=== PATIENT | male | born 1935 | race Caucasian/White ===

== ENCOUNTER 2017-01-29 09:36 | Outpatient (CLI) | payer MEDICARE, BC ==
[2017-01-29 10:14] LABS: #Basophils 0.1 thou/uL (0.0-0.2); #Eosinphils 0.3 thou/uL (0.0-0.7); #Lymphocytes 1.6 thou/uL (1.20-3.40); #Monocytes 0.8 thou/uL (0.11-0.59); #Neutrophils 5.4 thou/uL (1.40-6.50); %Basophils 1.2 % (0.0-1.0); %Eosinophils 3.9 % (0.0-10.0); %Lymphocytes 19.7 % (21.0-51.0); %Monocytes 9.2 % (0.0-10.0); Hemoglobin 17.5 g/dL (14.0-18.0); Mean Corpuscular HGB CONC 33.9 g/dL (32.0-36.0); Mean Corpuscular Hemoglobin 33.2 pg (27.0-31.0); Mean Corpuscular Volume 97.9 fl (80.0-94.0); Mean Platelet Volume 7.8 fL (7.4-10.4); Platelet Count 158 thou/uL (130-400); RBC Distribution Width 12.3 % (11.5-14.5); Red Blood Cell (RBC) Count 5.28 mill/uL (4.70-6.10); White Blood Cell (WBC) Count 8.2 thou/uL (4.8-10.8)
[2017-01-29 10:26] LABS: Hemoglobin A1c 8.3 % (4.0-6.0)
[2017-01-29 10:28] LABS: ALT (SGPT) 18 U/L (8-55); AST (SGOT) 17 U/L (5-34); Albumin 3.8 g/dL (3.4-4.8); Alkaline Phosphatase 62 U/L (40-150); Anion Gap 13 mmol/L (10-20); BUN (Urea Nitrogen) 18 mg/dL (8.4-25.7); Bilirubin, Direct 0.3 mg/dL (0.1-0.3); Bilirubin, Total 0.8 mg/dL (0.2-1.2); Calc. Creatinine Clearance 0 mL/min (70-130); Calcium 9.4 mg/dL (7.8-10.44); Carbon Dioxide 28 mmol/L (23-31); Cardiac Risk 4.5 (Less than 4.5); Chloride 104 mmol/L (98-107); Cholesterol 166 mg/dl (< 200 Desired); Estimated GFR-MDRD 67; Glucose 184 mg/dL (83-110); HDL Cholesterol 37 mg/dL (>60 Neg Risk); LDL Cholesterol, Calculated 114 mg/dL; Potassium 5.2 mmol/L (3.5-5.1); Protein, Total 6.8 g/dL (5.8-8.1); Sodium 140 mmol/L (136-145); Triglycerides 75 mg/dL (Less than 150)
== END 2017-01-29 09:37 | disposition home or self-care (01) ==
LOC: MADLABBHPM 09:36
PROVIDERS: ATTEND Family Medicine
DX: E78.5 Hyperlipidemia, unspecified (principal); I25.5 Ischemic cardiomyopathy; E11.9 Type 2 diabetes mellitus without complications
CPT/HCPCS: 36415; 80048; 80061; 80076; 80162; 83036; 85025

== ENCOUNTER 2017-05-03 09:55 | Outpatient (CLI) | payer MEDICARE, BC ==
[2017-05-03 10:31] LABS: #Basophils 0.1 thou/uL (0.0-0.2); #Eosinphils 0.3 thou/uL (0.0-0.7); #Lymphocytes 1.5 thou/uL (1.20-3.40); #Monocytes 0.7 thou/uL (0.11-0.59); #Neutrophils 5.7 thou/uL (1.40-6.50); %Basophils 1.2 % (0.0-1.0); %Eosinophils 3.5 % (0.0-10.0); %Lymphocytes 17.6 % (21.0-51.0); %Monocytes 8.8 % (0.0-10.0); %Neutrophils 68.8 % (42.0-75.0); Hemoglobin 16.3 g/dL (14.0-18.0); Mean Corpuscular Hemoglobin 31.2 pg (27.0-31.0); Mean Corpuscular Volume 97.6 fl (80.0-94.0); Mean Platelet Volume 7.4 fL (7.4-10.4); Platelet Count 166 thou/uL (130-400); Red Blood Cell (RBC) Count 5.24 mill/uL (4.70-6.10); White Blood Cell (WBC) Count 8.2 thou/uL (4.8-10.8)
[2017-05-03 10:52] LABS: ALT (SGPT) 15 U/L (8-55); AST (SGOT) 13 U/L (5-34); Albumin 3.7 g/dL (3.4-4.8); Alkaline Phosphatase 56 U/L (40-150); Anion Gap 13 mmol/L (10-20); BUN (Urea Nitrogen) 20 mg/dL (8.4-25.7); Bilirubin, Direct 0.2 mg/dL (0.1-0.3); Bilirubin, Total 0.6 mg/dL (0.2-1.2); Calc. Creatinine Clearance 0 mL/min (70-130); Calcium 9.5 mg/dL (7.8-10.44); Carbon Dioxide 28 mmol/L (23-31); Cardiac Risk 5.4 (Less than 4.5); Chloride 103 mmol/L (98-107); Cholesterol 183 mg/dl (< 200 Desired); Estimated GFR-MDRD 62; Glucose 235 mg/dL (83-110); HDL Cholesterol 34 mg/dL (>60 Neg Risk); LDL Cholesterol, Calculated 132 mg/dL; Potassium 4.7 mmol/L (3.5-5.1); Protein, Total 6.8 g/dL (5.8-8.1); Sodium 139 mmol/L (136-145); Triglycerides 87 mg/dL (Less than 150)
[2017-05-03 11:12] LABS: Hemoglobin A1c 8.5 % (4.0-6.0)
== END 2017-05-03 09:56 | disposition home or self-care (01) ==
LOC: MADLABBHPM 09:55
PROVIDERS: ATTEND Family Medicine
DX: E11.9 Type 2 diabetes mellitus without complications (principal)
CPT/HCPCS: 36415; 80048; 80061; 80076; 83036; 85025

== ENCOUNTER 2017-09-18 15:17 | Emergency (ER) | payer MEDICARE, BC | END 2017-09-18 17:07 | disposition home or self-care (01) | LOC: MADERS 15:17 | DX: M79.662 Pain in left lower leg (principal); E11.9 Type 2 diabetes mellitus without complications; Z79.4 Long term (current) use of insulin | CPT/HCPCS: 99283 ==

== ENCOUNTER 2018-09-23 23:02 | Emergency (ER) | payer MEDICARE, BC ==
[2018-09-23] MEDS ORDERED: Acetaminophen 500 MG TAB ONE (23:15)
[2018-09-23 23:30] LABS: #Basophils 0.1 thou/uL (0.0-0.2); #Lymphocytes 1.2 thou/uL (1.20-3.40); #Monocytes 1.1 thou/uL (0.11-0.59); #Neutrophils 11.8 thou/uL (1.40-6.50); %Basophils 0.7 % (0.0-1.0); %Eosinophils 0.2 % (0.0-10.0); %Lymphocytes 8.6 % (21.0-51.0); %Monocytes 7.5 % (0.0-10.0); Hemoglobin 16.6 g/dL (14.0-18.0); Mean Corpuscular Hemoglobin 30.1 pg (27.0-31.0); Mean Corpuscular Volume 94.2 fL (78.0-98.0); Mean Platelet Volume 7.5 fL (7.4-10.4); Platelet Count 204 thou/uL (130-400); RBC Distribution Width 12.2 % (11.5-14.5); White Blood Cell (WBC) Count 14.2 thou/uL (4.8-10.8)
--- NOTE | 2018-09-23 23:32 | RAD ---
UPRIGHT PORTABLE CHEST ONE VIEW: 09/23/18 HISTORY: Dyspnea. COMPARISON: 02/20/14. FINDINGS: Cardiomegaly with postop midline sternotomy and left ICD. Minimal cardiomegaly. Minimal bilateral vas cular congestion with small pleural effusions, slightly larger on the right side. No confluent lobar pneumonia. IMPRESSION: Mild vascular congestion with cardiomegaly and small pleural effusions. No confluent pneumonia. Littl e change from prior old study. POS: JEFFRY
[2018-09-23 23:37] LABS: ALT (SGPT) 37 U/L (8-55); AST (SGOT) 43 U/L (5-34); Albumin 3.8 g/dL (3.4-4.8); Alkaline Phosphatase 88 U/L (40-150); Anion Gap 17 mmol/L (10-20); BUN (Urea Nitrogen) 21 mg/dL (8.4-25.7); Bilirubin, Total 1.2 mg/dL (0.2-1.2); Calc. Creatinine Clearance 0 mL/min (70-130); Calcium 9.3 mg/dL (7.8-10.44); Carbon Dioxide 22 mmol/L (23-31); Chloride 102 mmol/L (98-107); Estimated GFR-MDRD 58; Globulin 3.6 g/dL (2.4-3.5); Glucose 301 mg/dL (83-110); Potassium 5.3 mmol/L (3.5-5.1); Protein, Total 7.4 g/dL (5.8-8.1); Sodium 136 mmol/L (136-145)
[2018-09-23] MEDS ORDERED: Furosemide 40 MG/4 ML VIAL ONE (23:51)
[2018-09-24 00:04] LABS: CKMB 3.3 ng/mL (0-6.6)
== END 2018-09-24 01:45 | disposition short-term general hospital (02) ==
LOC: MADERS 23:02
DX: I50.9 Heart failure, unspecified (principal); I25.10 Atherosclerotic heart disease of native coronary artery without angina pectoris; E11.9 Type 2 diabetes mellitus without complications; Z79.4 Long term (current) use of insulin
CPT/HCPCS: 71045; 80053; 82553; 83605; 83880; 84484; 85025; 87040; 87804; 93005; 94760; 96374; J1940; J7620

== ENCOUNTER 2019-03-08 09:14 | Inpatient (IN) | payer MEDICARE, BC ==
[2019-03-08 16:14] VITALS: BMI 26.3
[2019-03-08] MEDS ORDERED: Acetaminophen 325 MG TAB PO PRN (18:08)
[2019-03-08] MEDS ORDERED: traMADol HCl 50 MG TAB PO PRN (18:11)
[2019-03-08] MEDS ORDERED: HumuLIN 70/30 (300 UNITS/3 ML VIAL) SC SCH (21:00)
[2019-03-08] MEDS: Carvedilol 12.5 MG TAB PO SCH (21:19)
[2019-03-08] MEDS: Atorvastatin Calcium 10 MG TAB PO SCH (21:19)
[2019-03-08] MEDS: Tamsulosin HCl 0.4 MG CAP PO SCH (21:20)
[2019-03-08] MEDS: Sacubitril 49 MG/Valsartan 51 MG TABLET PO SCH (21:20)
[2019-03-09] MEDS: Levothyroxine Sodium 25 MCG TAB PO SCH (04:52)
[2019-03-09 05:24] LABS: ALT (SGPT) 20 U/L (8-55); AST (SGOT) 15 U/L (5-34); Albumin 3.1 g/dL (3.4-4.8); Alkaline Phosphatase 75 U/L (40-150); Anion Gap 10 mmol/L (10-20); BUN (Urea Nitrogen) 29 mg/dL (8.4-25.7); Bilirubin, Total 0.5 mg/dL (0.2-1.2); Calc. Creatinine Clearance 47 mL/min (70-130); Calcium 9.2 mg/dL (7.8-10.44); Carbon Dioxide 30 mmol/L (23-31); Chloride 103 mmol/L (98-107); Estimated GFR-MDRD 59; Glucose 359 mg/dL (83-110); Potassium 3.9 mmol/L (3.5-5.1); Protein, Total 6.1 g/dL (5.8-8.1); Sodium 139 mmol/L (136-145)
[2019-03-09 05:26] LABS: Band 1 % (5-11); Eosinophils 6 % (0-10); Hemoglobin 14.5 g/dL (14.0-18.0); Lymphocytes 14 % (21-51); MDiff Complete? YES; Mean Corpuscular HGB CONC 32.5 g/dL (32.0-36.0); Mean Corpuscular Hemoglobin 29.4 pg (27.0-31.0); Mean Corpuscular Volume 90.7 fL (78.0-98.0); Mean Platelet Volume 6.7 fL (7.4-10.4); Monocytes 9 % (0-10); Neutrophil 57 % (42-75); Platelet Count 213 thou/uL (130-400); Platelet Morphology Comment Appears Adequate; RBC Distribution Width 12.2 % (11.5-14.5); RBC Morphology Normal; Reactive Lymphocytes 13 % (0-10); Red Blood Cell (RBC) Count 4.93 mill/uL (4.70-6.10); White Blood Cell (WBC) Count 10.6 thou/uL (4.8-10.8)
[2019-03-09] MEDS: HumuLIN 70/30 (300 UNITS/3 ML VIAL) SC SCH ×2 (07:54→17:21)
--- NOTE | 2019-03-09 08:16 | HP ---
CHIEF COMPLAINT: Weakness and deconditioning. HISTORY OF PRESENT ILLNESS: The patient is an 83-year-old white male, who has a history of coronary artery disease, for which he has undergone a coronary artery bypass, complicated by chronic ischemic cardiomyopathy, for which he has had AICD placed. He had a distant history of a stroke, treated with tPA in 2012 with no residual. He has type 2 diabetes that is managed with insulin. He has hypothyroidism. The patient had undergone a cystoscopy with bladder biopsy and fulguration of the lesion and retrograde pyelogram on 03/02/2019 by urologist, Dr. Roque Lewis and was discharged on 03/03/2019. The patient re-presented to the hospital and admitted at [facility] for onset of difficulty with his speech. He said he was trying to talk, but just could not get the words to come out. This all resolved and was felt to be secondary to a TIA. He underwent a CT angio of the brain and neck that showed critical bilateral proximal internal carotid artery stenosis. The CT showed no evidence of intracranial hemorrhage. His symptoms resolved and he also had a fao-PO-ntumhbh elevated myocardial infarction with the peak troponin of 11. After the initial stroke symptoms resolved, his director of dementia operations, Dr. Abdi did a heart cath and found 3-vessel coronary artery disease. The three previous bypass grafts were all blocked and there was severely impaired ventricular function. He was able to successfully do a bare-metal stent in the mid LAD. His echocardiogram showed ejection fraction of 30% to 35% with moderate to severe tricuspid regurgitation and moderate mitral regurgitation. He had dyskinetic motion of the apical wall and akinetic motion of the inferior wall of the left ventricle. He was seen in consultation by cardiovascular surgeon, Dr. Lloyd, who felt like that it was best at this time for medical management of the critical aortic stenosis. He was treated with high dose of statin drugs, aspirin, and Plavix. He did very well and his mild exacerbation of congestive heart failure resolved. He was left though very very weak and as a consequence, he was referred to [facility] for physical therapy. The patient was seen soon after his admission. He was sitting up in a bedside chair and was able to review with me what had happened. He said right now he is feeling better, but he is just weak and hopes he gets strong enough to be able to go home. PAST MEDICAL HISTORY: Hospitalized at [facility] from 03/04 to 03/08 with initial TIA, presenting with aphasia. He had a non ST-segment elevated myocardial infarction. Heart cath showed triple-vessel coronary artery disease with the previous three bypass grafts that are blocked with severely impaired ventricular function. A bare-metal stent was placed in the LAD. He was found to have critical stenosis of the left and right carotid arteries, but at this time, he was not felt to be a good candidate for surgical intervention nor stents. It was opted to manage him with medications. Cystoscopy and biopsy of bladder tumor on 03/02/2019, by Dr. Roque Lewis. Ischemic cardiomyopathy, hypertension, coronary artery disease. History of coronary artery bypass x3 in 2002, complicated by ischemic cardiomyopathy, for which he has a biventricular automatic defibrillator that was placed in 2008 and replaced in September of 2014. He has peripheral artery disease, for which he has had stent placed in the left superficial femoral artery by Dr. Solomon in 2015. He has been treated in the past for congestive heart failure. He had CVA in February 2013, that was treated with tPA, leaving him with no residual effect. He has diabetes mellitus, treated with insulin. He has had a colonoscopy in 2006 with findings of diverticulosis and polyps that were removed. He has chronic low back pain secondary to spondylosis. Hyperlipidemia. PRESENT MEDICINES: 1. Humulin 70/30, 30 units b.i.d., which the patient varies. 2. Entresto 49/51 mg one b.i.d. 3. Levothyroxine 25 mcg daily. 4. Folic acid, multivitamins, lutein one daily. 5. Finasteride 5 mg daily. 6. Fish oil one tablet daily. 7. Digoxin 0.125 mg daily. 8. Plavix 75 mg daily. 9. Carvedilol 12.5 mg b.i.d. 10. Atorvastatin 80 mg daily. 11. Aspirin 81 mg daily. 12. Acetaminophen 325 mg two every 4 hours as needed. 13. Tramadol 50 mg every 6 hours as needed. ALLERGIES: LISINOPRIL AND HCT CAUSES COUGH. SIMVASTATIN, MYALGIA. REVIEW OF SYSTEMS: GENERAL: The patient said he is just weak. He does not think he has had any fever. He does not think his weight has changed any. EYES, EARS, NOSE, AND THROAT: No complaints. PULMONARY: Presently, he says he is not coughing. His breathing is better. He is having no orthopnea. CARDIOVASCULAR: No chest pain. GI: No nausea or vomiting. : Presently, he is voiding well. NEUROPSYCHIATRIC: The patient says he has no focal weakness. His speech is all back to normal. HABITS: Alcohol, none. Tobacco, none. SOCIAL HISTORY: The patient is independent of his ADLs. He lives at his home with his . PHYSICAL EXAMINATION: GENERAL: Shows a very pleasant 83-year-old white male, who is sitting in a bedside chair with his walker in front of him. He is alert, talkative, oriented x3, and appears very comfortable. VITAL SIGNS: Show a temperature of 97.5, pulse 62, respirations 16, O2 saturation 96% on room air, and blood pressure was 193/81. His weight is 158. His height is 65 inches. HEENT: Head, normocephalic and atraumatic. Eyes; pupils are equal, round, and reactive. Ears, TMs are clear. Nose, normal. Mouth and throat, normal. NECK: Carotids are equal and strong, no bruits. Did not hear any bruits. There is no thyromegaly. No adenopathy. LUNGS: Clear. HEART: Regular rate with no murmurs. ABDOMEN: Soft. No organomegaly. No areas of tenderness. EXTREMITIES: No edema. NEUROLOGIC: The patient is alert and oriented x3. The patient has generalized weakness, but no focal weakness. IMPRESSION: 1. Generalized weakness and deconditioning: a. Following recent hospitalization complicated by transient ischemic attack , congestive heart failure, and evv-EK-zpgejdw elevated myocardial infarction. 2. Hospitalized at [facility] from 03/04/2019 to 03/08/2019 for transient ischemic attack manifested with aphasia, resolved; non ST-segment elevated myocardial infarction; congestive heart failure; coronary heart disease, placement of a bare-metal stent to the LAD; and critical carotid artery stenosis, medically managed, presently not a candidate for operative intervention. 3. Coronary artery disease: a. Status post coronary artery bypass, initially in 2004 and again in 2013. b. [address]-segment elevated myocardial infarction on 03/04/2019. c. Repeat heart catheterization on 03/06/2019, showed three-vessel coronary artery disease with 0 of 3 bypass grafts patent, severely impaired ventricular function, and successful placement of a bare-metal stent in the LAD. 4. Ischemic cardiomyopathy. a. Echocardiogram on March 05, 2019, showed EF of 30% to 35%, dyskinetic motion of the apical wall and akinetic motion of the inferior wall of the left ventricle. Moderate to severe tricuspid regurgitation and moderate mitral regurgitation. b. Complicated by congestive heart failure during recent hospitalizations. c. Status post AICD, initially in 2008 and change out with biventricular defibrillator in September 2014. 5. Bilateral carotid artery disease: a. High-grade critical carotid artery stenosis, bilateral. Presently not a surgical candidate. Managed with medications. 6. Transient ischemic attack. a. Presented on 03/04/2019 with aphasia that resolved. 7. History of a CVA in 2012. a. Presenting with aphasia, treated with tPA. b. No residual effect. 8. BPH. 9. Bladder tumors: a. Status post cystoscopy with biopsy of bladder tumors on 03/02/2019 by urologist, Dr. Roque Lewis. 10. Diabetes mellitus, type 2. a. Insulin requiring. PLAN: The patient has been admitted to the hospital for his weakness and deconditioning. Physical Therapy and Occupational Therapy will work with him. We will continue his medications. See orders. Job ID: [id number] MTDD
[2019-03-09] MEDS: Clopidogrel Bisulfate 75 MG TAB PO SCH (08:49)
[2019-03-09] MEDS: Finasteride 5 MG TAB PO SCH (08:49)
[2019-03-09] MEDS: Digoxin 0.125 MG TAB PO SCH (08:49)
[2019-03-09] MEDS: Fish Oil 1,000 MG CAP PO SCH (08:49)
[2019-03-09] MEDS: Vit A,C & E/Lutein/Minerals Tablet PO SCH (08:49)
[2019-03-09] MEDS: Spironolactone 25 MG TAB PO SCH (08:49)
[2019-03-09] MEDS: Multivitamin W/ Minerals 1 TAB PO SCH (08:49)
[2019-03-09] MEDS: Aspirin Chewable 81 MG TAB PO SCH (08:49)
[2019-03-09] MEDS: Carvedilol 12.5 MG TAB PO SCH ×2 (08:49→21:32)
[2019-03-09] MEDS: Sacubitril 49 MG/Valsartan 51 MG TABLET PO SCH ×2 (08:50→21:32)
--- NOTE | 2019-03-09 09:54 | PRG ---
DATE OF SERVICE: 03/09/2019 SUBJECTIVE: The patient said he had a good night. He is feeling good this morning. He has had no shortness of breath or chest pain. He has already been for walk with physical therapy. He asked about wearing his knee-high support hose, which he said it makes his legs feel better, these have been ordered. OBJECTIVE: GENERAL: The patient is sitting up in a chair. He is alert, talkative, appears comfortable, in no distress. VITAL SIGNS: Temperature 97.9, pulse 63, respirations 14, O2 saturation 94% on room air, blood pressure 133/77. LUNGS: Clear. HEART: Regular rate. EXTREMITIES: No edema. NEUROLOGIC: Alert and oriented x3. Has some generalized weakness, but able to ambulate. There is no focal weakness. LABORATORY DATA: His lab shows an H and H of 14.5 and 44.7, white cell count 10 ,300 with 57% segs, 14% lymphocytes, 13% reactive lymphocytes, platelet count 213, 000. Sodium 139, potassium 3.9, BUN 29, creatinine 1.18, and GFR 59. His FBS this morning was 359, last night his blood sugar was 514. TSH was 3.0. Hemoglobin A1c pending. ASSESSMENT: 1. Generalized weakness. a. Following hospitalization for initial TIA and then a mvb-EF-nwescnj elevated myocardial infarction with acute exacerbation of congestive heart failure. He required placement of a bare-metal stent in the left anterior descending, is found to have critical aortic stenosis, for which he is not a surgical candidate at this time. b. Improved as of 03/09/2019. 2. Ischemic cardiomyopathy. a. No evidence of acute myocardial infarction. 3. Hypertension, controlled. 4. Diabetes mellitus type 2. a. His glucose was very high, but he has just been started back on his regular dose of insulin, we will see if this will drop. If not, we will adjust accordingly. PLAN: Continue PT. The patient is back on his Humulin 70/30 of 30 units twice today. We will place the patient on knee-high support hose, to be worn when he is out of bed. Job ID: [id number] MTDD
[2019-03-09 11:34] LABS: Hemoglobin A1c 8.1 % (4.0-6.0)
[2019-03-09] MEDS: Ondansetron ODT 4 MG TAB PO PRN (20:06)
[2019-03-09] MEDS: Atorvastatin Calcium 10 MG TAB PO SCH (21:32)
[2019-03-09] MEDS: Tamsulosin HCl 0.4 MG CAP PO SCH (21:32)
[2019-03-10] MEDS: Levothyroxine Sodium 25 MCG TAB PO SCH (05:56)
[2019-03-10] MEDS: Finasteride 5 MG TAB PO SCH (08:58)
[2019-03-10] MEDS: Multivitamin W/ Minerals 1 TAB PO SCH (08:58)
[2019-03-10] MEDS: Vit A,C & E/Lutein/Minerals Tablet PO SCH (08:58)
[2019-03-10] MEDS: Digoxin 0.125 MG TAB PO SCH (08:58)
[2019-03-10] MEDS: Clopidogrel Bisulfate 75 MG TAB PO SCH (08:58)
[2019-03-10] MEDS: Spironolactone 25 MG TAB PO SCH (08:58)
[2019-03-10] MEDS: Aspirin Chewable 81 MG TAB PO SCH (08:58)
[2019-03-10] MEDS: Sacubitril 49 MG/Valsartan 51 MG TABLET PO SCH ×2 (08:58→20:30)
[2019-03-10] MEDS: Carvedilol 12.5 MG TAB PO SCH ×2 (08:58→20:29)
[2019-03-10] MEDS: Fish Oil 1,000 MG CAP PO SCH (08:58)
[2019-03-10] MEDS: HumuLIN 70/30 (300 UNITS/3 ML VIAL) SC SCH ×2 (08:59→17:10)
--- NOTE | 2019-03-10 10:44 | PRG ---
DATE OF SERVICE: 03/10/2019 SUBJECTIVE: The patient said he is doing better this morning. Last evening, he had became nauseated and vomited a couple of times. He was given Zofran oral disintegrating tablet, that has helped. He says his stomach is not hurting. He is not sure why he had the vomiting. This morning, he is better. He is not having any shortness of breath or chest pain. OBJECTIVE: GENERAL: The patient is lying in bed. He is alert, appears comfortable, in no distress. VITAL SIGNS: Temperature was 100.4, his pulse was 70, respirations 18, O2 saturations 94% on room air, blood pressure 165/61. LUNGS: Clear. HEART: Regular rate. ABDOMEN: Soft, nontender. LABORATORY DATA: FBS last night at bedtime was 149. FBS this morning pending. His hemoglobin A1c was 8.1. TSH 3.01. ASSESSMENT: 1. Generalized weakness. a. Following hospitalization for initial TIA and then a frv-LM-xjlagma elevated myocardial infarction with acute exacerbation of congestive heart failure. He required placement of a bare-metal stent in the left anterior descending, is found to have critical aortic stenosis, for which he is not a surgical candidate at this time. b. Improved as of 03/10/2019. 2. Ischemic cardiomyopathy. a. No evidence of acute CHF as of 03/10. 3. Hypertension, controlled. 4. Diabetes mellitus type 2. a. His glucose was very high, but he has just been started back on his regular dose of insulin, we will see if this will drop. If not, we will adjust accordingly. b. Hemoglobin A1c 8.1. 5. Episode of nausea and vomiting last evening, better as of the morning of 03/10. PLAN: We will continue present care. Continue present medicines. Continue PT. We will observe the patient, see how he does. Monitor his vital signs. He did have a low-grade fever. The nausea seems to have all resolved. Job ID: [id number] [facility]
[2019-03-10] MEDS: Atorvastatin Calcium 10 MG TAB PO SCH (20:29)
[2019-03-10] MEDS: Tamsulosin HCl 0.4 MG CAP PO SCH (20:30)
[2019-03-11] MEDS: Levothyroxine Sodium 25 MCG TAB PO SCH (05:46)
[2019-03-11] MEDS: Sacubitril 49 MG/Valsartan 51 MG TABLET PO SCH ×2 (08:39→20:18)
[2019-03-11] MEDS: HumuLIN 70/30 (300 UNITS/3 ML VIAL) SC SCH ×2 (08:39→17:21)
[2019-03-11] MEDS: Multivitamin W/ Minerals 1 TAB PO SCH (08:40)
[2019-03-11] MEDS: Finasteride 5 MG TAB PO SCH (08:40)
[2019-03-11] MEDS: Fish Oil 1,000 MG CAP PO SCH (08:40)
[2019-03-11] MEDS: Digoxin 0.125 MG TAB PO SCH (08:40)
[2019-03-11] MEDS: Vit A,C & E/Lutein/Minerals Tablet PO SCH (08:40)
[2019-03-11] MEDS: Aspirin Chewable 81 MG TAB PO SCH (08:40)
[2019-03-11] MEDS: Clopidogrel Bisulfate 75 MG TAB PO SCH (08:40)
[2019-03-11] MEDS: Spironolactone 25 MG TAB PO SCH (08:40)
[2019-03-11] MEDS: Carvedilol 12.5 MG TAB PO SCH ×2 (08:40→20:18)
[2019-03-11] MEDS ORDERED: Loperamide HCl 2 MG CAP PO PRN (10:53)
[2019-03-11] MEDS: Tamsulosin HCl 0.4 MG CAP PO SCH (20:18)
[2019-03-11] MEDS: Atorvastatin Calcium 10 MG TAB PO SCH (20:18)
[2019-03-11] MEDS: Ondansetron ODT 4 MG TAB PO PRN (22:46)
[2019-03-12] MEDS: Levothyroxine Sodium 25 MCG TAB PO SCH (05:41)
[2019-03-12] MEDS: Finasteride 5 MG TAB PO SCH (08:37)
[2019-03-12] MEDS: Sacubitril 49 MG/Valsartan 51 MG TABLET PO SCH ×2 (08:37→20:47)
[2019-03-12] MEDS: Fish Oil 1,000 MG CAP PO SCH (08:37)
[2019-03-12] MEDS: HumuLIN 70/30 (300 UNITS/3 ML VIAL) SC SCH ×2 (08:38→17:17)
[2019-03-12] MEDS: Aspirin Chewable 81 MG TAB PO SCH (08:38)
[2019-03-12] MEDS: Vit A,C & E/Lutein/Minerals Tablet PO SCH (08:38)
[2019-03-12] MEDS: Multivitamin W/ Minerals 1 TAB PO SCH (08:38)
[2019-03-12] MEDS: Clopidogrel Bisulfate 75 MG TAB PO SCH (08:38)
[2019-03-12] MEDS: Digoxin 0.125 MG TAB PO SCH (08:38)
[2019-03-12] MEDS: Carvedilol 12.5 MG TAB PO SCH ×2 (08:38→20:48)
[2019-03-12] MEDS: Spironolactone 25 MG TAB PO SCH (08:38)
[2019-03-12] MEDS: Atorvastatin Calcium 10 MG TAB PO SCH (20:47)
[2019-03-12] MEDS: Tamsulosin HCl 0.4 MG CAP PO SCH (20:49)
[2019-03-13] MEDS: Levothyroxine Sodium 25 MCG TAB PO SCH (05:56)
[2019-03-13] MEDS: Sacubitril 49 MG/Valsartan 51 MG TABLET PO SCH ×2 (08:14→21:53)
[2019-03-13] MEDS: Finasteride 5 MG TAB PO SCH (08:14)
[2019-03-13] MEDS: Digoxin 0.125 MG TAB PO SCH (08:15)
[2019-03-13] MEDS: Carvedilol 12.5 MG TAB PO SCH ×2 (08:15→21:53)
[2019-03-13] MEDS: Vit A,C & E/Lutein/Minerals Tablet PO SCH (08:15)
[2019-03-13] MEDS: Aspirin Chewable 81 MG TAB PO SCH (08:15)
[2019-03-13] MEDS: Spironolactone 25 MG TAB PO SCH (08:16)
[2019-03-13] MEDS: Multivitamin W/ Minerals 1 TAB PO SCH (08:16)
[2019-03-13] MEDS: Fish Oil 1,000 MG CAP PO SCH (08:16)
[2019-03-13] MEDS: Clopidogrel Bisulfate 75 MG TAB PO SCH (08:16)
[2019-03-13] MEDS: HumuLIN 70/30 (300 UNITS/3 ML VIAL) SC SCH ×2 (08:17→17:27)
--- NOTE | 2019-03-13 10:44 | PRG ---
DATE OF SERVICE: 03/11/2019 SUBJECTIVE: The patient said he is doing better. He has not had any more of the nausea or vomiting. He has had though multiple liquid bowel movements. The nurses said he is passing multiple brown stools, some with little chunks of stools and sometimes he does not even know it is coming. The nurse is going to check him to be sure he is not impacted. The patient is breathing good. He has had no chest pain. OBJECTIVE: GENERAL: The patient is sitting up in a chair. He looks some much better than yesterday, and he appears in no distress. VITAL SIGNS: His temperature is 97.8, pulse is 63, his respirations are 18, O2 saturation on room air 96%, blood pressure 102/51. LUNGS: Clear. HEART: Regular rate. EXTREMITIES: No edema. LABORATORY DATA: FBS this morning was 75. The patient did not want to take his insulin. He usually skips it when it is this low at home. Last night at supper time, it was 135 and at bedtime, it was 101. ASSESSMENT: 1. Generalized weakness. a. Following hospitalization for initial TIA and then a kap-KL-trmyryd elevated myocardial infarction with acute exacerbation of congestive heart failure. He required placement of a bare-metal stent in the left anterior descending, is found to have critical aortic stenosis, for which he is not a surgical candidate at this time. b. Improved as of 03/11/2019. 2. Ischemic cardiomyopathy. a. No evidence of acute CHF as of 03/11/2019. 3. Hypertension, controlled. 4. Diabetes mellitus type 2. a. His glucose was very high, but he has just been started back on his regular dose of insulin, we will see if this will drop. If not, we will adjust accordingly. b. Hemoglobin A1c 8.1. c. Improved as of 03/11/2019. 5. Episode of nausea and vomiting last evening, better as of the morning of 03/10. a. Nausea and vomiting resolved as of 03/11/2019. 6. Diarrhea. a. Nurse will check to be sure that he is not impacted and having a paradoxical diarrhea as of 03/11/2019. PLAN: Continue present care. Continue PT and OT. ADDENDUM: SUBJECTIVE: Nurse to check the patient to ensure there is no fecal impaction and the rectal vault is empty. ASSESSMENT: The nausea and vomiting have resolved, but now he is having the diarrhea secondary to gastroenteritis. PLAN: Replace fluid loss with increased fluid intake. We will place the patient on Imodium per his request for the diarrhea. Job ID: [id number] MTDD
--- NOTE | 2019-03-13 10:46 | PRG ---
DATE OF SERVICE: 03/13/2019 SUBJECTIVE: The patient said he is better. He has had no nausea, vomiting. He is eating good. He has had no diarrhea. Suspect the nausea, vomiting, diarrhea were from a gastroenteritis that has resolved. He is not following the consistent carbohydrate diet. He says at home he is on a regular diet. He has had friends bring in butterR.A. Burch Constructionlk, and he has been requesting double cereals and double milk. Said he is not going to live to 89 and not going to follow up a diet. We will liberalize his diet to regular. The patient is weak and said he is still having trouble getting around and still not. He does not think able to manage himself at home. OBJECTIVE: GENERAL: The patient is alert, talkative, appears comfortable, in no distress. VITAL SIGNS: His temp is 97.8, his pulse is 62, respirations are 16, O2 saturation is 95% on room air, blood pressure is 95/44. FBS this morning 123. LUNGS: Clear. HEART: Regular rate. EXTREMITIES: No edema. ASSESSMENT: 1. Generalized weakness. a. Following hospitalization for initial TIA and then a fwt-HL-rcdqpcd elevated myocardial infarction with acute exacerbation of congestive heart failure. He required placement of a bare-metal stent in the left anterior descending, is found to have critical aortic stenosis, for which he is not a surgical candidate at this time. b. Improved as of 03/13/2019. 2. Ischemic cardiomyopathy. a. No evidence of acute CHF as of 03/10. 3. Hypertension, controlled. 4. Diabetes mellitus type 2. a. His glucose was very high, but he has just been started back on his regular dose of insulin, we will see if this will drop. If not, we will adjust accordingly. b. Controlled FBS this morning, 123 as of 03/13/2019. 5. Gastroenteritis. a. Manifest nausea, vomiting, and diarrhea resolved as of 03/12/2019. PLAN: Continue PT. Continue present medicine. Will change the patient's diet to regular diet. Job ID: [id number] [facility]
[2019-03-13] MEDS: Tamsulosin HCl 0.4 MG CAP PO SCH (21:53)
[2019-03-13] MEDS: Atorvastatin Calcium 10 MG TAB PO SCH (21:53)
[2019-03-14] MEDS: Levothyroxine Sodium 25 MCG TAB PO SCH (05:34)
[2019-03-14] MEDS: Vit A,C & E/Lutein/Minerals Tablet PO SCH (08:47)
[2019-03-14] MEDS: Clopidogrel Bisulfate 75 MG TAB PO SCH (08:47)
[2019-03-14] MEDS: Fish Oil 1,000 MG CAP PO SCH (08:47)
[2019-03-14] MEDS: Spironolactone 25 MG TAB PO SCH (08:48)
[2019-03-14] MEDS: Aspirin Chewable 81 MG TAB PO SCH (08:48)
[2019-03-14] MEDS: Digoxin 0.125 MG TAB PO SCH (08:48)
[2019-03-14] MEDS: Sacubitril 49 MG/Valsartan 51 MG TABLET PO SCH ×2 (08:48→20:22)
[2019-03-14] MEDS: Carvedilol 12.5 MG TAB PO SCH ×2 (08:48→20:22)
[2019-03-14] MEDS: Finasteride 5 MG TAB PO SCH (08:48)
[2019-03-14] MEDS: Multivitamin W/ Minerals 1 TAB PO SCH (08:48)
[2019-03-14] MEDS: HumuLIN 70/30 (300 UNITS/3 ML VIAL) SC SCH ×2 (08:48→17:38)
--- NOTE | 2019-03-14 11:27 | PRG ---
DATE OF SERVICE: 03/14/2019 SUBJECTIVE: The patient said he is not having any nausea or vomiting and no more diarrhea. He feels better. He is just still weak. His breathing is doing good. He has had no shortness of breath or chest pain. OBJECTIVE: GENERAL: The patient is lying in bed, alert, appears comfortable, and in no distress. VITAL SIGNS: Show a temp of 98, pulse 64, respirations 14, O2 saturation 96% on room air, blood pressure 138/64. LUNGS: Clear. HEART: Regular rate. EXTREMITIES: No edema. LABORATORY DATA: FBS last night at bedtime was 183. ASSESSMENT: 1. Generalized weakness. a. Following hospitalization for initial TIA and then a ofk-ZP-xqbnshx elevated myocardial infarction with acute exacerbation of congestive heart failure. He required placement of a bare-metal stent in the left anterior descending , is found to have critical aortic stenosis, for which he is not a surgical candidate at this time. b. Improved as of 03/14/2019. 2. Ischemic cardiomyopathy. a. No evidence of acute CHF as of 03/14/2019. 3. Hypertension, controlled. 4. Diabetes mellitus type 2. a. His glucose was very high, but he has just been started back on his regular dose of insulin, we will see if this will drop. If not, we will adjust accordingly. b. Controlled FBS this morning, 123 as of 03/13/2019. 5. Gastroenteritis. a. Manifest nausea, vomiting, and diarrhea resolved as of 03/12/2019. b. Resolved. 6. TIAs. a. Presented on 03/04/2019 with aphasia that resolved. b. No recurrence as of 03/14/2019. PLAN: Continue present care. Continue PT. Job ID: [id number] [facility]
[2019-03-14] MEDS: Tamsulosin HCl 0.4 MG CAP PO SCH (20:22)
[2019-03-14] MEDS: Atorvastatin Calcium 10 MG TAB PO SCH (20:23)
[2019-03-15] MEDS: Levothyroxine Sodium 25 MCG TAB PO SCH (06:06)
[2019-03-15] MEDS: Vit A,C & E/Lutein/Minerals Tablet PO SCH (08:44)
[2019-03-15] MEDS: Multivitamin W/ Minerals 1 TAB PO SCH (08:44)
[2019-03-15] MEDS: Clopidogrel Bisulfate 75 MG TAB PO SCH (08:44)
[2019-03-15] MEDS: Aspirin Chewable 81 MG TAB PO SCH (08:44)
[2019-03-15] MEDS: Carvedilol 12.5 MG TAB PO SCH ×2 (08:44→20:07)
[2019-03-15] MEDS: Digoxin 0.125 MG TAB PO SCH (08:44)
[2019-03-15] MEDS: Fish Oil 1,000 MG CAP PO SCH (08:44)
[2019-03-15] MEDS: Sacubitril 49 MG/Valsartan 51 MG TABLET PO SCH ×2 (08:44→20:09)
[2019-03-15] MEDS: Spironolactone 25 MG TAB PO SCH (08:45)
[2019-03-15] MEDS: Finasteride 5 MG TAB PO SCH (08:45)
[2019-03-15] MEDS: HumuLIN 70/30 (300 UNITS/3 ML VIAL) SC SCH ×2 (08:47→17:36)
--- NOTE | 2019-03-15 10:36 | PRG ---
DATE OF SERVICE: 03/15/2019 SUBJECTIVE The patient said he is doing better. He feels better today. He has not had any more nausea or vomiting. No diarrhea. He did work with Physical Therapy yesterday and walked up to 150 feet on 2 occasions with rolling walker. He is transferring with just supervision. OBJECTIVE: GENERAL: The patient is sitting up in a bedside chair. He is alert , talkative, appears comfortable, in no distress. VITAL SIGNS: His temperature is 97.7, pulse 70, respirations 14, O2 sat 97%, and blood pressure 116/49. LUNGS: Clear. HEART: Regular rate. EXTREMITIES: No edema. LABORATORY DATA: His FBS last night at bedtime was 103. This morning's is pending. ASSESSMENT: 1. Generalized weakness. a. Following hospitalization for initial TIA and then a zou-DA-haumrjm elevated myocardial infarction with acute exacerbation of congestive heart failure. He required placement of a bare-metal stent in the left anterior descending , is found to have critical aortic stenosis, for which he is not a surgical candidate at this time. b. Improved. Walking up to 150 feet twice today. Transferring better as of 03/15/2019. 2. Ischemic cardiomyopathy. a. No evidence of acute CHF as of 03/14/2019. 3. Hypertension, controlled. 4. Diabetes mellitus type 2. a. His glucose was very high, but he has just been started back on his regular dose of insulin, we will see if this will drop. If not, we will adjust accordingly. b. Controlled, improved as of 03/15/2019. 5. Gastroenteritis. a. Manifest nausea, vomiting, and diarrhea resolved as of 03/12/2019. b. Resolved. 6. TIAs. a. Presented on 03/04/2019 with aphasia that resolved. b. No recurrence as of 03/15/2019. PLAN: Continue present care. Continue physical therapy. The patient is doing better. Job ID: [id number] MTDD
[2019-03-15] MEDS: Tamsulosin HCl 0.4 MG CAP PO SCH (20:09)
[2019-03-15] MEDS ORDERED: Atorvastatin Calcium 40 MG TAB PO SCH (21:00)
[2019-03-16] MEDS: Levothyroxine Sodium 25 MCG TAB PO SCH (05:34)
[2019-03-16 07:41] VITALS: BP 129/59; TEMP 97.7
[2019-03-16] MEDS: Multivitamin W/ Minerals 1 TAB PO SCH (08:21)
[2019-03-16] MEDS: Spironolactone 25 MG TAB PO SCH (08:21)
[2019-03-16] MEDS: Sacubitril 49 MG/Valsartan 51 MG TABLET PO SCH (08:21)
[2019-03-16] MEDS: Digoxin 0.125 MG TAB PO SCH (08:21)
[2019-03-16] MEDS: Finasteride 5 MG TAB PO SCH (08:21)
[2019-03-16] MEDS: Vit A,C & E/Lutein/Minerals Tablet PO SCH (08:21)
[2019-03-16] MEDS: Carvedilol 12.5 MG TAB PO SCH (08:22)
[2019-03-16] MEDS: Aspirin Chewable 81 MG TAB PO SCH (08:22)
[2019-03-16] MEDS: Clopidogrel Bisulfate 75 MG TAB PO SCH (08:22)
[2019-03-16] MEDS: HumuLIN 70/30 (300 UNITS/3 ML VIAL) SC SCH (08:22)
[2019-03-16] MEDS: Fish Oil 1,000 MG CAP PO SCH (08:22)
--- NOTE | 2019-03-17 09:41 | DIS ---
DATE OF ADMISSION: 03/08/2019 DATE OF DISCHARGE: 03/16/2019 FINAL DIAGNOSES: The final diagnoses will the same as under the impression with the following changes: 1. #1.B. Marked improvement, ambulating up to 150 feet several times a day, transferring independently as of 03/16/2019. 2. #4. D. No evidence of acute congestive heart failure. 3. #6.B. No recurrence as of 03/16. 4. #10. B. Controlled as of 03/16/2019. 5. #11. Gastroenteritis, resolved. SUMMARY: The patient is an 83-year-old white male who has a history of coronary artery disease, for which he has undergone coronary artery bypass complicated by chronic ischemic cardiomyopathy for which he has an AICD. He has a distant history of a stroke treated with tPA in 2012 with no residual after the fact that he has type 2 diabetes that he manages with insulin, has been under reasonable control, and he has hypothyroidism. He had recently undergone a cystoscopy with bladder biopsy and fulguration of bladder lesions and retro pyelogram on 03/02/2019, by Dr. Roque Lewis and discharged him on 03/03. The patient re-presented to the hospital at [facility] for difficulty with his speech, could not get the proper words out. This all resolved. He was evaluated for stroke. CT angio of the brain showed critical bilateral proximal internal carotid artery stenosis. CT showed no evidence of intracranial hemorrhage. He also was found to have evidence of a non ST-segment elevated [place] with a peak troponin of 11. After stroke symptoms resolved, his police stenographer did a heart cath and found 3-vessel coronary artery disease. The previous bypass grafts were all blocked and there was severe impairment of left ventricular function. His EF was 30% to 35%. He did have a successful placement of a bare metal stent in the mid LAD. He also has on echocardiogram moderate to severe tricuspid regurgitation, moderate mitral regurgitation, and dyskinetic motion of the apical wall and inferior wall. He was seen in consult by Dr. Lloyd for the critical carotid stenosis and felt that with his other issues, it would be best to put this off and treat this medically and relook at this later. He also had some mild congestive heart failure that resolved. He was discharged to [facility] due to his general deconditioning and weakness. The patient's hospital stay was one of continual improvement. During his stay, he had no problems with shortness of breath, no chest pain, and no edema. His diabetes was managed with his humulin 70/30, that he takes 30 units twice today and usually adjust this according to his blood sugars. His hemoglobin A1c was 8.1 on 03/09. During his hospital stay, he did develop some nausea, vomiting, and diarrhea that resolved. It was felt to be secondary to a gastroenteritis. He made excellent progress during his stay with physical therapy. By the time of his discharge, he was walking 150 to 200 feet, and on the day of discharge, walked 400 feet twice with a rolling walker and just supervision. He was transferring independently. On 03/16/2019, his condition was improved. His strength was improved and he felt like that he would do fine at home with his . Arrangements will be made for home health to see him and continue in-home PT and OT, and he will follow back up with his police stenographer and I will see him in 2 weeks. DISPOSITION: DIET: Regular diet. No added salt. ACTIVITIES: Ambulate with the use of a walker. Home Health to see him for in-home PT and OT. Check a glucometer twice a day. MEDICATIONS: 1. Acetaminophen 325 mg two every 4 hours as needed. 2. Aspirin 81 mg daily. 3. Atorvastatin 80 mg at bedtime. 4. Carvedilol 12.5 mg b.i.d. 5. Plavix 75 mg daily. 6. Digoxin 0.125 mg daily. 7. Finasteride 5 mg daily. 8. Fish oil 1000 mg daily. 9. Humulin 70/30, 30 units before breakfast and 30 units before supper. 10. Theragran-M vitamins one a day. 11. Levothyroxine 25 mcg daily. 12. Ocuvite with lutein two tablets daily. 13. Entresto 49 mg/51 mg one b.i.d. 14. Spironolactone 25 mg daily. 15. Tamsulosin 0.4 mg at bedtime. FOLLOWUP: The patient will need to see his police stenographer in followup. The patient will be seen by myself in 2 weeks with a CBC, basic metabolic panel, and digoxin level. CODE STATUS: Full code. Job ID: [id number]
== END 2019-03-16 14:09 | disposition home or self-care (01) | DRG 281 ==
LOC: MADMS 16:03
PROVIDERS: ADMIT Family Medicine; ATTEND Family Medicine
DX: I21.4 Non-ST elevation (NSTEMI) myocardial infarction (principal); G45.9 Transient cerebral ischemic attack, unspecified; I50.9 Heart failure, unspecified; I25.10 Atherosclerotic heart disease of native coronary artery without angina pectoris; I25.5 Ischemic cardiomyopathy; I08.1 Rheumatic disorders of both mitral and tricuspid valves; N40.0 Benign prostatic hyperplasia without lower urinary tract symptoms; E11.9 Type 2 diabetes mellitus without complications; K52.9 Noninfective gastroenteritis and colitis, unspecified; R53.1 Weakness; R53.81 Other malaise; Z86.73 Personal history of transient ischemic attack (TIA), and cerebral infarction without residual deficits
CPT/HCPCS: 36415; 36416; 80053; 83036; 84443; 85025; J1815; Q0162

== ENCOUNTER 2020-09-18 21:20 | Inpatient (IN) | payer MEDICARE ==
[2020-09-18] MEDS ORDERED: traMADol HCl 50 MG TAB PO PRN (23:05)
[2020-09-18] MEDS ORDERED: Acetaminophen 500 MG TAB PO PRN (23:06)
[2020-09-18] MEDS ORDERED: Ibuprofen 200 MG TAB PO PRN (23:10)
[2020-09-18] MEDS ORDERED: Lantus 1000 UNITS/10 ML VIAL SC SCH (23:15)
[2020-09-18] MEDS ORDERED: Sotalol HCl 80 MG TAB PO SCH (23:15)
[2020-09-18] MEDS ORDERED: Dextrose 5% in Water 1,000 ML IV PRN (23:30)
[2020-09-18] MEDS ORDERED: Dextrose 50% Abboject 50 ML SYRINGE IVP PRN (23:30)
[2020-09-19] MEDS: Levothyroxine Sodium 25 MCG TAB PO SCH (05:41)
[2020-09-19 06:08] LABS: #Lymphocytes 0.7 thou/uL (1.20-3.40); #Monocytes 0.7 thou/uL (0.11-0.59); #Neutrophils 7.9 thou/uL (1.40-6.50); %Basophils 0.5 % (0.0-1.0); %Lymphocytes 7.5 % (21.0-51.0); %Monocytes 7.5 % (0.0-10.0); %Neutrophils 84.5 % (42.0-75.0); Hemoglobin 15.4 g/dL (14.0-18.0); Mean Corpuscular HGB CONC 31.7 g/dL (32.0-36.0); Mean Corpuscular Hemoglobin 28.8 pg (27.0-31.0); Mean Corpuscular Volume 90.6 fL (78.0-98.0); Mean Platelet Volume 7.9 fL (7.4-10.4); Platelet Count 169 thou/uL (130-400); RBC Distribution Width 13.1 % (11.5-14.5); Red Blood Cell (RBC) Count 5.35 mill/uL (4.70-6.10); White Blood Cell (WBC) Count 9.4 thou/uL (4.8-10.8)
[2020-09-19 06:25] LABS: AST (SGOT) 29 U/L (5-34); Albumin 2.9 g/dL (3.4-4.8); Alkaline Phosphatase 140 U/L (40-110); Anion Gap 12 mmol/L (10-20); BUN (Urea Nitrogen) 35 mg/dL (8.4-25.7); Bilirubin, Total 0.9 mg/dL (0.2-1.2); Calc. Creatinine Clearance 68 mL/min (70-130); Calcium 8.4 mg/dL (7.8-10.44); Carbon Dioxide 33 mmol/L (23-31); Chloride 98 mmol/L (98-107); Globulin 2.7 g/dL (2.4-3.5); Glucose 142 mg/dL (83-110); Potassium 4.3 mmol/L (3.5-5.1); Protein, Total 5.6 g/dL (5.8-8.1); Sodium 139 mmol/L (136-145)
[2020-09-19 07:50] LABS: ALT (SGPT) 49 U/L (8-55)
[2020-09-19] MEDS: Digoxin 0.125 MG TAB PO SCH (08:53)
[2020-09-19] MEDS: Zinc Sulfate 220 MG CAP PO SCH (08:53)
[2020-09-19] MEDS: Aspirin Chewable 81 MG TAB PO SCH (08:53)
[2020-09-19] MEDS: Ascorbic Acid 500 mg Chewable Tablet PO SCH (08:53)
[2020-09-19] MEDS: Cholecalciferol (Vitamin D3) 400 UNITS TAB PO SCH (08:54)
[2020-09-19] MEDS: Clopidogrel Bisulfate 75 MG TAB PO SCH (08:54)
[2020-09-19] MEDS: Carvedilol 12.5 MG TAB PO SCH (08:54)
[2020-09-19] MEDS: Dexamethasone 4 MG TAB PO SCH (08:54)
[2020-09-19] MEDS: Enoxaparin Sodium 40 MG/0.4 ML SYRINGE SC SCH (08:54)
[2020-09-19] MEDS: Multivitamin W/ Minerals 1 TAB PO SCH (08:54)
[2020-09-19] MEDS: Sotalol HCl 80 MG TAB PO SCH ×2 (08:55→20:46)
[2020-09-19] MEDS: Spironolactone 25 MG TAB PO SCH (08:55)
[2020-09-19] MEDS: Furosemide 40 MG TAB PO SCH (08:55)
[2020-09-19] MEDS: Lisinopril 5 MG TAB PO SCH (08:55)
[2020-09-19] MEDS: DOCOSAHEXAENOIC ACID PO SCH (08:56)
[2020-09-19] MEDS: [UNRECOGNIZED DRUG - OTHER] PO SCH (08:56)
[2020-09-19] MEDS: HumaLOG 300 UNITS/3 ML VIAL SC PRN ×2 (12:16→17:14)
[2020-09-19] MEDS: Lantus 1000 UNITS/10 ML VIAL SC SCH (20:47)
--- NOTE | 2020-09-20 05:10 | HP ---
CHIEF COMPLAINT: Very weak following hospital stay for COVID pneumonia. HISTORY OF PRESENT ILLNESS: The patient is an 85-year-old white male, who has a history of coronary artery disease, for which he has undergone coronary artery bypass. This has been complicated by chronic ischemic cardiomyopathy for which he has an AICD. He has a distant history of a stroke treated with tPA in 2012 with no residual after effect. He has type 2 diabetes that he manages with insulin. He has hypothyroidism. The patient was hospitalized at [facility] from 09/12/20 until 09/18/20 with COVID-19 pneumonia with hypoxemia. His initial chest x-ray showed patchy interstitial alveolar ground-glass opacity changes on x-ray and CT of the chest with right pleural effusion and atelectasis. He had acute hypoxic respiratory failure requiring supplemental O2. His initial CRP was 7.15, D- dimer 1.7, ferritin 289. The CRP dropped to 3 and the D-dimer to 1.1. He was treated with IV remdesivir, Decadron and was given vitamin supplementation. He gradually improved but was left extremely weak and had essentially been bed confined during his hospitalization. Ordinarily he is independent of his ADLs. He was transferred to [facility] on the evening of 09/18/20 for purpose of continuation of his isolation to complete the 10-day isolation, which will be another 4 days and also for PT and OT in an effort to try to improve his general functional capabilities. The patient was seen early on the morning of 09/19/20. He said he was feeling better but just still very, very weak and not been to do much. He has not really been up walking and maybe sitting in the chair for short periods. He said he is not short of breath. The nurses report that he still has a little productive cough. He is still requiring supplemental O2 at 2 L by nasal cannula and maintaining an O2 saturation of 96%. PAST HISTORY: Hospitalized at [facility] from 09/12/20 until 09/18/20 with COVID pneumonia treated with IV remdesivir, Decadron, supplemental O2; coronary artery disease, for which he has undergone coronary artery bypass initially in 2003 and again in 2013. He had a non ST-segment elevated CT in February of 2019. Repeat heart catheterization on March 06, 2019, showed three-vessel coronary artery disease, 0/3 bypass grafts were patent. He had severely impaired left ventricular function. A bare metal stent was placed in the LAD. He has ischemic cardiomyopathy. Ejection fraction in February 2019 showed he was at 30% to 35%. He had dyskinetic motion of the apical wall and akinetic motion of the inferior wall of the left ventricle. He has moderate to severe tricuspid regurgitation and moderate mitral regurgitation. He had an AICD placed initially in 10/2008 and changed it out with biventricular defibrillator in September 2014. He has bilateral carotid artery disease, high- grade critical carotid artery stenosis bilateral, but not a surgical candidate, managed with medication. He had a TIA on March 04, 2019, presenting with aphasia that resolved and he has had no recurrence. He had a CVA in 2012, presenting with aphasia, treated with tPA with no residual effect. He has BPH. He has had bladder tumor removed under cystoscopy by Dr. Roque Lewis in 2018. He has diabetes type 2, insulin requiring. He also has peripheral artery disease, for which he has had stents placed in the left superficial femoral artery by Dr. Solomon in 2015. He has had colonoscopy in 2006, diverticulosis and polyps removed. 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 PRESENT MEDICATIONS: The patient was discharged from [facility] on the following medicines 1. Acetaminophen 500 mg every 4 hours as needed. 2. Ascorbic acid 1000 mg daily. 3. Aspirin 81 mg daily. 4. Carvedilol 12.5 mg daily. 5. Cholecalciferol 400 units daily. 6. Clopidogrel 75 mg daily. 7. Dexamethasone 6 mg daily for six days. 8. Digoxin 0.125 mg daily. 9. Lovenox 40 mg subcu daily. 10. Furosemide 40 mg daily. 11. Ibuprofen 200 mg every 6 hours as needed. 12. Lantus 30 units at bedtime. 13. Humalog a.c. by the aggressive scale and Humalog at bedtime by the bedtime scale. 14. Theragran-M daily. 15. Levothyroxine 25 mcg daily. 16. Lisinopril 5 mg daily. 17. Pantoprazole 40 mg daily. 18. Sotalol 40 mg b.i.d. 19. Spironolactone 12.5 mg daily. 20. Tramadol 50 mg 4 times a day as needed. 21. Zinc 220 mg daily. ALLERGIES: SIMVASTATIN CAUSES MYALGIA. LISINOPRIL IS LISTED CAUSING A COUGH. THE PATIENT HAS RECENTLY BEEN ON A LOW DOSE WITHOUT PROBLEM. REVIEW OF SYSTEMS: GENERAL: The patient said he is very weak, has not been able to really walk recently since his illness. He has had no fever. EYE, EAR, NOSE AND THROAT: No complaints. PULMONARY: The patient said his breathing is better. He still has a little cough, but it is better. He says he is using supplemental O2 at 2 L. CARDIOVASCULAR: No chest pain. GI: The patient said he is eating pretty good. He has had no nausea, vomiting, or diarrhea. : No complaints. MUSCULOSKELETAL: No complaint. NEUROLOGIC: No complaint. DERMATOLOGIC: No complaint. ADLs prior to this hospitalization, the patient was independent of his ADLs. HABITS: Alcohol, none. Tobacco, none. SOCIAL HISTORY: The patient is , lives with his , recently been moved into assisted living home in [place]. PHYSICAL EXAMINATION: GENERAL: An 85-year-old white male, who is awake, alert, recognizes me. He looks very weak, but not in any acute distress. He is on O2 at 2 L by nasal cannula. VITAL SIGNS: His temp was 97.4, pulse 60, respirations 20, O2 saturation 96% on 2 L, blood pressure 176/84, earlier was 149/72. His weight is 149. HEENT: Head normocephalic and atraumatic. Eyes, pupils equal, round, and reactive. Ears, normal. Nose, normal. Mouth and throat, mucous membranes are little dry. NECK: Carotids are equal and strong. No bruits. Thyroid not enlarged. LUNGS: Clear. A little decreased breath sounds at the right posterior base. HEART: Regular rate. ABDOMEN: Soft. No organomegaly or areas of tenderness. EXTREMITIES: No edema. NEUROLOGIC: The patient is alert, oriented, recognizes me, knows he is at [place] in the hospital and understands his recent situation and hospitalization for the COVID pneumonia. He has generalized weakness that is nonfocal. IMPRESSION: 1. Generalized weakness. a. Following the hospitalization for COVID pneumonia. b. Has left him with marked decline in his functional capabilities and presently not walking. 2. Hospitalized at [facility] from 09/12/20 to 09/18/20 for COVID pneumonia with acute hypoxic respiratory failure. 3. COVID pneumonia. a. Complicated by acute hypoxic respiratory failure requiring supplemental O2 that is improving. b. Initially treated with IV remdesivir and Decadron and now on oral dose of Decadron. c. Improving as of 09/19. 4. Ischemic cardiomyopathy. a. Echocardiogram in February 2019 showed EF 30% to 35%. b. Complicated by congestive heart failure. c. Status post AICD initially in 10/2008 and changed out with biventricular defibrillator in September 2014. 5. Bilateral carotid artery disease. a. High-grade critical carotid artery stenosis, but not a surgical candidate. 6. History of TIAs. a. Presented in February 2019 with aphasia that resolved. b. No recurrence. 7. History of CVA in 2012. a. Presenting with aphasia, treated with tPA. No residual side effects. 8. Diabetes type 2. a. Insulin requiring. 9. Benign prostatic hypertrophy. 10. Spondylosis of the low back. Lives in chronic pain. PLAN: The patient has been admitted to [facility] where he will remain in isolation for an additional 4 days, completing his 10 days of isolation. He remains afebrile. He is still requiring some supplemental O2, but only at 2 L to maintain an O2 saturation of 96%. Continue his vitamins. We will continue his routine medication and we will manage the diabetes with his Lantus and a sliding scale. He is on DVT prophylaxis with Lovenox. We will continue his medication for the coronary artery disease, carotid artery disease and his ischemic cardiomyopathy. CODE STATUS: Full code. Job ID: [id number] MTDD
[2020-09-20] MEDS: Levothyroxine Sodium 25 MCG TAB PO SCH (05:20)
[2020-09-20] MEDS: Dexamethasone 4 MG TAB PO SCH (07:59)
[2020-09-20] MEDS: Enoxaparin Sodium 40 MG/0.4 ML SYRINGE SC SCH (07:59)
[2020-09-20] MEDS: Cholecalciferol (Vitamin D3) 400 UNITS TAB PO SCH (07:59)
[2020-09-20] MEDS: Lisinopril 5 MG TAB PO SCH (08:00)
[2020-09-20] MEDS: Clopidogrel Bisulfate 75 MG TAB PO SCH (08:00)
[2020-09-20] MEDS: Aspirin Chewable 81 MG TAB PO SCH (08:00)
[2020-09-20] MEDS: Multivitamin W/ Minerals 1 TAB PO SCH (08:00)
[2020-09-20] MEDS: Carvedilol 12.5 MG TAB PO SCH (08:00)
[2020-09-20] MEDS: Spironolactone 25 MG TAB PO SCH (08:00)
[2020-09-20] MEDS: Sotalol HCl 80 MG TAB PO SCH ×2 (08:00→21:49)
[2020-09-20] MEDS: Ascorbic Acid 500 mg Chewable Tablet PO SCH (08:00)
[2020-09-20] MEDS: Zinc Sulfate 220 MG CAP PO SCH (08:00)
[2020-09-20] MEDS: Digoxin 0.125 MG TAB PO SCH (08:01)
[2020-09-20] MEDS: Furosemide 40 MG TAB PO SCH (08:01)
[2020-09-20] MEDS: DOCOSAHEXAENOIC ACID PO SCH (08:21)
[2020-09-20] MEDS: [UNRECOGNIZED DRUG - OTHER] PO SCH (08:21)
[2020-09-20] MEDS: HumaLOG 300 UNITS/3 ML VIAL SC PRN ×3 (11:45→21:50)
[2020-09-20] MEDS ORDERED: Lisinopril 5 MG TAB PO SCH (12:15)
--- NOTE | 2020-09-20 12:25 | PRG ---
DATE OF SERVICE: 09/20/2020 SUBJECTIVE: The patient says he feels better today. He has been up in a geriatric chair. He says he is eating better. He says his breathing is doing good. He says he is just very weak. The patient still has a little productive sounding cough, but his chest remains clear. OBJECTIVE: GENERAL: The patient is sitting up in a geriatric chair. He is alert, talkative, looks better. VITAL SIGNS: His O2 saturation is 97% on 1-1/2 L by nasal cannula of O2, his temperature 97.2, pulse 62, respirations 18, and blood pressure 180/78. LUNGS: Clear. He does still have just a little productive cough. HEART: Regular rate. EXTREMITIES: A little edema in the left leg. LABORATORY DATA: His FBS this morning was 87. ASSESSMENT: 1. Generalized weakness. a. Following hospitalization for COVID pneumonia. b. Has been left with marked decline in his functional capabilities. c. Today, tolerating sitting up in a geriatric chair, but still very weak as of 09/20. 2. Hospitalized at [facility] from 09/12/2020 until 09/18/2020 for COVID pneumonia with acute hypoxic respiratory failure. 3. COVID pneumonia. a. Complicated by acute hypoxic respiratory failure, requiring supplemental O2, that is improving. b. Initially treated with IV remdesivir and Decadron and now on oral Decadron. c. Improving as of 09/20/2020. 4. Ischemic cardiomyopathy. a. Echocardiogram, February 2019, showed ejection fraction 30% to 35%. b. Complicated by episodes of congestive heart failure. c. Status post automatic implantable cardioverter-defibrillator initially in October 2008 and change out with biventricular defibrillator in September 2014. d. No evidence of acute congestive heart failure as of 09/20/2020. 5. Bilateral carotid artery disease. a. High-grade critical carotid artery stenosis, but not a surgical candidate. 6. History of transient ischemic attack. a. Presented in February 2019 with aphasia that has resolved. b. No recurrence. 7. History of CVA in 2012. a. Presenting with aphasia and treated with tPA. No residual effect from the CVA. 8. Diabetes type 2. a. Insulin requiring. b. Control improving as of 09/20/2020. 9. BPH. 10. Spondylosis of the lumbar spine. PLAN: The patient looks better today. We will continue his present care. Continue PT and OT. The patient is still on the Decadron, was scheduled to receive 4 doses of this from his admission here at [facility]. I will have Speech Therapy see patient. He has been on a liquid diet with nectar-thickened liquids. Job ID: [id number] MTDD
[2020-09-20] MEDS: Lantus 1000 UNITS/10 ML VIAL SC SCH (21:49)
[2020-09-21] MEDS: Levothyroxine Sodium 25 MCG TAB PO SCH (05:23)
[2020-09-21] MEDS: Furosemide 40 MG TAB PO SCH (08:04)
[2020-09-21] MEDS: Spironolactone 25 MG TAB PO SCH (08:04)
[2020-09-21] MEDS: Ascorbic Acid 500 mg Chewable Tablet PO SCH (08:06)
[2020-09-21] MEDS: Cholecalciferol (Vitamin D3) 400 UNITS TAB PO SCH (08:07)
[2020-09-21] MEDS: Sotalol HCl 80 MG TAB PO SCH ×2 (08:07→20:39)
[2020-09-21] MEDS: Aspirin Chewable 81 MG TAB PO SCH (08:07)
[2020-09-21] MEDS: Multivitamin W/ Minerals 1 TAB PO SCH (08:07)
[2020-09-21] MEDS: Lisinopril 10 MG TAB PO SCH (08:08)
[2020-09-21] MEDS: Digoxin 0.125 MG TAB PO SCH (08:08)
[2020-09-21] MEDS: Clopidogrel Bisulfate 75 MG TAB PO SCH (08:08)
[2020-09-21] MEDS: Carvedilol 12.5 MG TAB PO SCH (08:09)
[2020-09-21] MEDS: Dexamethasone 4 MG TAB PO SCH (08:10)
[2020-09-21] MEDS: Enoxaparin Sodium 40 MG/0.4 ML SYRINGE SC SCH (08:11)
[2020-09-21] MEDS: Zinc Sulfate 220 MG CAP PO SCH (08:11)
[2020-09-21] MEDS: HumaLOG 300 UNITS/3 ML VIAL SC PRN ×4 (08:12→20:51)
[2020-09-21] MEDS: Lantus 1000 UNITS/10 ML VIAL SC SCH (20:51)
[2020-09-22] MEDS: Levothyroxine Sodium 25 MCG TAB PO SCH (05:15)
[2020-09-22] MEDS: Zinc Sulfate 220 MG CAP PO SCH (08:48)
[2020-09-22] MEDS: Clopidogrel Bisulfate 75 MG TAB PO SCH (08:48)
[2020-09-22] MEDS: Lisinopril 10 MG TAB PO SCH (08:48)
[2020-09-22] MEDS: Cholecalciferol (Vitamin D3) 400 UNITS TAB PO SCH (08:48)
[2020-09-22] MEDS: Aspirin Chewable 81 MG TAB PO SCH (08:48)
[2020-09-22] MEDS: Sotalol HCl 80 MG TAB PO SCH ×2 (08:49→20:13)
[2020-09-22] MEDS: Furosemide 40 MG TAB PO SCH (08:49)
[2020-09-22] MEDS: Multivitamin W/ Minerals 1 TAB PO SCH (08:49)
[2020-09-22] MEDS: Ascorbic Acid 500 mg Chewable Tablet PO SCH (08:49)
[2020-09-22] MEDS: Spironolactone 25 MG TAB PO SCH (08:49)
[2020-09-22] MEDS: Digoxin 0.125 MG TAB PO SCH (08:50)
[2020-09-22] MEDS: Dexamethasone 4 MG TAB PO SCH (08:50)
[2020-09-22] MEDS: Carvedilol 12.5 MG TAB PO SCH (08:50)
[2020-09-22] MEDS: Enoxaparin Sodium 40 MG/0.4 ML SYRINGE SC SCH (08:50)
[2020-09-22] MEDS: HumaLOG 300 UNITS/3 ML VIAL SC PRN ×3 (12:08→20:38)
--- NOTE | 2020-09-22 12:57 | PRG ---
DATE OF SERVICE: 09/21/2020 SUBJECTIVE: The patient says he feels a little better. He said he did eat some breakfast. He slept pretty good. OBJECTIVE: GENERAL: The patient is lying in bed. He is alert and talkative and appears comfortable. He appears in no distress. VITAL SIGNS: His temperature is 98.3, pulse 64, respirations 20, O2 saturation 97% on room air, blood pressure 170/80. LUNGS: Clear. HEART: Regular rate. EXTREMITIES: No edema. LABORATORY DATA: FBS this morning was 196. ASSESSMENT: 1. Generalized weakness: a. Following hospitalization for COVID pneumonia. b. Has been left with marked decline in his functional capability. c. Patient is improving a little. He is tolerating sitting up in a geriatric chair as of 09/21/2020. 2. Hospitalized at [facility] from 09/12/2020 until 09/18/2020 for COVID pneumonia with acute hypoxic respiratory failure. 3. COVID pneumonia. a. Complicated by acute respiratory failure, requiring supplemental O2 that is improving. b. Initially treated with IV remdesivir, Decadron, now on oral Decadron. c. Improving as of 09/21/2020. d. This is his 10th day of isolation as of 09/21/2020. 4. Ischemic cardiomyopathy. a. Echocardiogram February 2019 showed ejection fraction of 30% to 35%. b. Complicated by episodes of congestive heart failure. c. Status post automatic implantable cardioverter-defibrillator, initially placed in October 2008 and change out with biventricular defibrillator in September 2014. There is no evidence of acute CHF as of 09/21/2020. 5. Bilateral carotid artery disease. a. High-grade critical carotid artery stenosis, but not a surgical candidate. 6. History of transient ischemic attack. a. Presented in 2019 with aphasia that has resolved. b. No recurrence. 7. History of cerebrovascular accident in 2012. a. Presenting with aphasia, treated with tPA, no residual effect from the cerebrovascular accident. 8. Diabetes type 2. a. Insulin requiring. b. Control improving as of 09/21/2020. 9. Benign prostatic hypertrophy. 10. Spondylosis of lumbar spine. PLAN: Patient made gradual improvement. We will continue present care. Continue PT and OT. This is the patient's 10th day of isolation. He is feeling better, had been free of fever for several days. We will discontinue isolation in the morning. Job ID: [id number]
[2020-09-22] MEDS: Lantus 1000 UNITS/10 ML VIAL SC SCH (20:14)
[2020-09-23] MEDS: Levothyroxine Sodium 25 MCG TAB PO SCH (05:22)
[2020-09-23] MEDS: Aspirin Chewable 81 MG TAB PO SCH (08:13)
[2020-09-23] MEDS: Lisinopril 10 MG TAB PO SCH (08:14)
[2020-09-23] MEDS: Ascorbic Acid 500 mg Chewable Tablet PO SCH (08:14)
[2020-09-23] MEDS: Cholecalciferol (Vitamin D3) 400 UNITS TAB PO SCH (08:15)
[2020-09-23] MEDS: Carvedilol 12.5 MG TAB PO SCH (08:15)
[2020-09-23] MEDS: Digoxin 0.125 MG TAB PO SCH (08:15)
[2020-09-23] MEDS: Clopidogrel Bisulfate 75 MG TAB PO SCH (08:15)
[2020-09-23] MEDS: Multivitamin W/ Minerals 1 TAB PO SCH (08:16)
[2020-09-23] MEDS: Furosemide 40 MG TAB PO SCH (08:16)
[2020-09-23] MEDS: Spironolactone 25 MG TAB PO SCH (08:16)
[2020-09-23] MEDS: Sotalol HCl 80 MG TAB PO SCH ×2 (08:16→21:07)
[2020-09-23] MEDS: Zinc Sulfate 220 MG CAP PO SCH (08:17)
[2020-09-23] MEDS: Dexamethasone 4 MG TAB PO SCH (08:17)
[2020-09-23] MEDS: Enoxaparin Sodium 40 MG/0.4 ML SYRINGE SC SCH (08:17)
--- NOTE | 2020-09-23 10:57 | PRG ---
DATE OF SERVICE: 09/23/2020 SUBJECTIVE: Patient said he rested good. This morning, he does not feel quite as good as he did yesterday. He has not had any shortness of breath. OBJECTIVE: GENERAL: The patient is sitting up in a bedside chair. He is alert, talkative, appears comfortable, and in no distress. VITAL SIGNS: Show a temperature of 96.7, pulse 63, blood pressure 160/82, O2 saturation 97% on 1.5 L of O2. LUNGS: Clear. HEART: Regular rate. LABORATORY DATA: His FBS this morning was 79, last night at bedtime was 212. ASSESSMENT: 1. Generalized weakness. a. Following hospitalization for COVID pneumonia. b. Has been left with marked decline in his functional capabilities. c. Patient is gradually improving, tolerating sitting up in a chair and walking short distance as of 09/23/2020. 2. Hospitalized at [facility] from 09/12/2020 until 09/18/2020 for COVID pneumonia with acute hypoxic respiratory failure. 3. COVID pneumonia. a. Complicated by acute respiratory failure, requiring supplemental O2 that has clinically resolved.I. b. Initially treated with IV remdesivir, Decadron. c. Continues to improve as of 09/23 and clinically resolved. d. This patient completed a 10-day course of isolation as of 09/21/2020. 4. Ischemic cardiomyopathy. a. Echocardiogram February 2019 showed ejection fraction of 30% to 35%. b. Complicated by episodes of congestive heart failure. c. Status post automatic implantable cardioverter-defibrillator, initially placed in October 2008 and change out with biventricular defibrillator in September 2014. d. No evidence of acute congestive heart failure as of 09/23/2020. 5. Bilateral carotid artery disease. a. High-grade critical carotid artery stenosis, but not a surgical candidate. b. Asymptomatic. 6. History of transient ischemic attacks. a. Presented in 2018 with aphasia that resolved. b. No recurrence. 7. History of cerebrovascular accident in 2012. a. Presented with aphasia, treated with tPA. No residual effect from the cerebrovascular accident. 8. Diabetes type 2. a. Insulin requiring. b. Control improving as 09/23. 9. Benign prostatic hypertrophy. 10. Spondylosis. PLAN: Continue present care. Continue PT and OT. We will stop the bedtime sliding scale since blood sugar this morning was a little on the low side. Continue the a.c. sliding scale. Job ID: [id number]
[2020-09-23 11:01] VITALS: BMI 23.8
[2020-09-23] MEDS: HumaLOG 300 UNITS/3 ML VIAL SC PRN ×3 (12:12→21:06)
[2020-09-23] MEDS: Lantus 1000 UNITS/10 ML VIAL SC SCH (21:06)
[2020-09-24] MEDS: Levothyroxine Sodium 25 MCG TAB PO SCH (05:04)
[2020-09-24] MEDS: Enoxaparin Sodium 40 MG/0.4 ML SYRINGE SC SCH (08:19)
[2020-09-24] MEDS: Sotalol HCl 80 MG TAB PO SCH ×2 (08:20→20:13)
[2020-09-24] MEDS: Lisinopril 10 MG TAB PO SCH (08:20)
[2020-09-24] MEDS: Zinc Sulfate 220 MG CAP PO SCH (08:20)
[2020-09-24] MEDS: Ascorbic Acid 500 mg Chewable Tablet PO SCH (08:20)
[2020-09-24] MEDS: Carvedilol 12.5 MG TAB PO SCH (08:20)
[2020-09-24] MEDS: Multivitamin W/ Minerals 1 TAB PO SCH (08:21)
[2020-09-24] MEDS: Dexamethasone 4 MG TAB PO SCH (08:21)
[2020-09-24] MEDS: Furosemide 40 MG TAB PO SCH (08:21)
[2020-09-24] MEDS: Clopidogrel Bisulfate 75 MG TAB PO SCH (08:21)
[2020-09-24] MEDS: Digoxin 0.125 MG TAB PO SCH (08:21)
[2020-09-24] MEDS: Spironolactone 25 MG TAB PO SCH (08:21)
[2020-09-24] MEDS: Aspirin Chewable 81 MG TAB PO SCH (08:21)
[2020-09-24] MEDS: Cholecalciferol (Vitamin D3) 400 UNITS TAB PO SCH (08:22)
[2020-09-24] MEDS: HumaLOG 300 UNITS/3 ML VIAL SC PRN ×3 (08:26→16:52)
--- NOTE | 2020-09-24 09:33 | PRG ---
DATE OF SERVICE: 09/24/2020 SUBJECTIVE: Patient said he is feeling a little better today. He slept good. Patient is walking a little more. He has been able to walk in his room and he is transferring easier. OBJECTIVE: GENERAL: Patient is sitting on the edge of the bed, preparing to work with therapy. VITAL SIGNS: His temperature is 97.3, pulse 62, respirations are 20, O2 saturation 100% on 1.5 L, blood pressure 144/78. LUNGS: Clear. HEART: Regular rate. EXTREMITIES: No edema. LABORATORY DATA: FBS this morning 163. ASSESSMENT: 1. Generalized weakness. a. Following hospitalization with COVID pneumonia. b. Has been left with marked decline in his functional capabilities. c. Gradually improving to where he is able to walk in his room as of 09/24/2020. 2. Hospitalized at [facility] from 09/12/2020 until 09/18/2020 for COVID pneumonia with acute hypoxic respiratory failure. 3. COVID pneumonia. a. Complicated by acute respiratory failure, requiring supplemental O2, that has clinically resolved. b. Initially treated with IV remdesivir and Decadron. c. Clinically resolving as of 09/24. d. Patient completed a 10-day course of isolation as of 09/21/2020. 4. Ischemic cardiomyopathy. a. Echocardiogram in February 2019 showed ejection fraction 30% to 35%. b. Complicated by episodes of congestive heart failure. c. Status post automatic implantable cardioverter defibrillator, initially placed in October 2008 and change out with biventricular defibrillator in September 2014. d. No evidence of acute congestive heart failure as of 09/23/2020. 5. Bilateral carotid artery disease. a. High-grade critical carotid artery stenosis, but not a surgical candidate. b. Asymptomatic. 6. History of transient ischemic attacks. a. Presented in 2019 with aphasia that resolved. b. No recurrence. 7. History of cerebrovascular accident in 2012. a. Presented with aphasia, treated with tPA. No residual effect from the cerebrovascular accident. 8. Diabetes type 2. a. Insulin requiring. b. Control improving as of 09/24. 9. BPH. 10. Spondylosis. PLAN: Patient is making gradual progress. We will continue present care. Continue PT and OT. Job ID: [id number]
[2020-09-24] MEDS: Lantus 1000 UNITS/10 ML VIAL SC SCH (21:03)
[2020-09-25] MEDS: Levothyroxine Sodium 25 MCG TAB PO SCH (05:20)
[2020-09-25] MEDS: HumaLOG 300 UNITS/3 ML VIAL SC PRN ×3 (08:56→17:20)
[2020-09-25] MEDS: Aspirin Chewable 81 MG TAB PO SCH (08:57)
[2020-09-25] MEDS: Zinc Sulfate 220 MG CAP PO SCH (08:57)
[2020-09-25] MEDS: Multivitamin W/ Minerals 1 TAB PO SCH (08:57)
[2020-09-25] MEDS: Digoxin 0.125 MG TAB PO SCH (08:57)
[2020-09-25] MEDS: Carvedilol 12.5 MG TAB PO SCH (08:57)
[2020-09-25] MEDS: Ascorbic Acid 500 mg Chewable Tablet PO SCH (08:58)
[2020-09-25] MEDS: Furosemide 40 MG TAB PO SCH (08:58)
[2020-09-25] MEDS: Lisinopril 10 MG TAB PO SCH (08:58)
[2020-09-25] MEDS: Spironolactone 25 MG TAB PO SCH (08:58)
[2020-09-25] MEDS: Clopidogrel Bisulfate 75 MG TAB PO SCH (08:59)
[2020-09-25] MEDS: Cholecalciferol (Vitamin D3) 400 UNITS TAB PO SCH (08:59)
[2020-09-25] MEDS: Sotalol HCl 80 MG TAB PO SCH ×2 (08:59→20:50)
[2020-09-25] MEDS: Enoxaparin Sodium 40 MG/0.4 ML SYRINGE SC SCH (08:59)
--- NOTE | 2020-09-25 10:24 | PRG ---
DATE OF SERVICE: 09/25/2020 SUBJECTIVE: The patient said he is feeling okay this morning. He slept good. He is walking in his room with help. OBJECTIVE: GENERAL: The patient is sitting on the side of the bed, alert, talkative, appears comfortable, in no distress. VITAL SIGNS: His temp is 97.4, pulse 63, respirations 20, O2 saturation 98% on room air this morning, blood pressure 158/66. LUNGS: Clear. HEART: Regular rate. LABORATORY DATA: This morning, his FBS is pending. Yesterday morning, was 163. ASSESSMENT: 1. Generalized weakness. a. Following hospitalization with COVID pneumonia. b. Has been left with marked decline in his functional capabilities. c. Gradually improving to where he is walking in his room with his walker as of 09/25/2020. 2. Hospitalized at [facility] from 09/12/2020 until 09/18/2020 for COVID pneumonia with acute hypoxic respiratory failure. 3. COVID pneumonia. a. Complicated by acute respiratory failure requiring supplemental O2 that has resolved. b. Initially treated with IV remdesivir and Decadron. c. Resolved as of 09/25. d. Completed 10-day course of isolation as of 09/21/2020. 4. Ischemic cardiomyopathy. a. Echocardiogram in 2019 showed ejection fraction 30% to 35%. b. Complicated by periodic episodes of congestive heart failure. c. Status post AICD, initially placed October 2008 and changed out biventricular defibrillator on September 2014. d. No evidence of acute congestive heart failure as of 09/25. 5. Bilateral carotid artery disease. a. High-grade critical carotid artery stenosis, but not a surgical candidate. b. Asymptomatic. 6. History of transient ischemic attacks. a. Presented in 2019 with aphasia that resolved. b. No recurrence. 7. History of cerebrovascular accident in 2012. a. Presented with aphasia, treated with tPA. No residual effect after the cerebrovascular accident. 8. Diabetes, type 2. a. Insulin requiring. 9. Benign prostatic hypertrophy. 10. Spondylosis. PLAN: Patient is making gradual improvement. We will continue present care. Continue PT and OT. Job ID: [id number]
[2020-09-25] MEDS: Lantus 1000 UNITS/10 ML VIAL SC SCH (20:50)
[2020-09-26] MEDS: Levothyroxine Sodium 25 MCG TAB PO SCH (05:25)
[2020-09-26] MEDS: Carvedilol 12.5 MG TAB PO SCH (08:54)
[2020-09-26] MEDS: Zinc Sulfate 220 MG CAP PO SCH (08:54)
[2020-09-26] MEDS: Multivitamin W/ Minerals 1 TAB PO SCH (08:54)
[2020-09-26] MEDS: Sotalol HCl 80 MG TAB PO SCH (08:54)
[2020-09-26] MEDS: Digoxin 0.125 MG TAB PO SCH (08:54)
[2020-09-26] MEDS: Furosemide 40 MG TAB PO SCH (08:54)
[2020-09-26] MEDS: Aspirin Chewable 81 MG TAB PO SCH (08:54)
[2020-09-26] MEDS: Lisinopril 10 MG TAB PO SCH (08:55)
[2020-09-26] MEDS: Cholecalciferol (Vitamin D3) 400 UNITS TAB PO SCH (08:55)
[2020-09-26] MEDS: Clopidogrel Bisulfate 75 MG TAB PO SCH (08:55)
[2020-09-26] MEDS: Spironolactone 25 MG TAB PO SCH (08:55)
[2020-09-26] MEDS: HumaLOG 300 UNITS/3 ML VIAL SC PRN (09:02)
--- NOTE | 2020-09-26 09:03 | PRG ---
DATE OF SERVICE: 09/26/2020 SUBJECTIVE: The patient said he is doing a little better, just still weak, but is improving. Occupational therapist said he is doing better. He is transferring easier. He is walking up to 10 feet. OBJECTIVE: GENERAL: The patient is up, just sitting down on the bedside commode. He is alert, talkative, and appears comfortable, in no distress. VITAL SIGNS: His temperature is 98.2, pulse 63, respirations 20, O2 saturation 100% on 2 L, blood pressure 126/62. LUNGS: Clear. HEART: Regular rate. FBS this morning was 201. ASSESSMENT: 1. Generalized weakness. a. Following hospitalization with COVID pneumonia. b. Has been left with marked decline in his functional capabilities and requiring assistance with all his ADLs. c. Gradual improvement. Transferring easier, walking up to 10 feet as of 09/26. 2. Hospitalized at [facility] from 09/12/2020 until 09/18/2020 for COVID pneumonia with hypoxic respiratory failure. 3. COVID pneumonia. a. Complicated by acute respiratory failure with hypoxemia requiring supplemental O2 that has resolved. b. Initially treated with IV remdesivir and Decadron. c. Resolved as of 09/25. d. Completed a 10-day course of isolation on 09/21/2020. 4. Ischemic cardiomyopathy. a. Ejection fraction 2018 showed EF of 30% to 35%. b. Complicated by periodic episodes of congestive heart failure. c. Status post AICD initially placed in October 2008 and changed out with a biventricular defibrillator on September 2014. d. No evidence of acute congestive heart failure as of 09/26. 5. Bilateral carotid artery disease. a. High-grade critical carotid artery stenosis, but not a surgical candidate. b. Asymptomatic. 6. History of transient ischemic attacks. a. Presented in 2019 with aphasia that resolved. b. No recurrence. 7. History of cerebrovascular accident in 2012. a. Presenting with aphasia, treated with tPA. No residual effect. 8. Diabetes type 2. a. Insulin-requiring. 9. BPH. 10. Spondylosis of the lumbosacral spine. PLAN: The patient is making slow improvement. We will try tapering and stopping the O2 and using just p.r.n. Continue PT and OT. Job ID: [id number]
[2020-09-26 09:57] LABS: #Basophils 0.1 thou/uL (0.0-0.2); #Eosinphils 0.1 thou/uL (0.0-0.7); #Lymphocytes 1.8 thou/uL (1.20-3.40); #Monocytes 1.2 thou/uL (0.11-0.59); #Neutrophils 11.5 thou/uL (1.40-6.50); %Basophils 0.8 % (0.0-1.0); %Eosinophils 0.6 % (0.0-10.0); %Lymphocytes 12.3 % (21.0-51.0); %Monocytes 8.4 % (0.0-10.0); %Neutrophils 77.8 % (42.0-75.0); Hemoglobin 8.5 g/dL (14.0-18.0); Mean Corpuscular HGB CONC 33.1 g/dL (32.0-36.0); Mean Corpuscular Hemoglobin 30.4 pg (27.0-31.0); Mean Corpuscular Volume 91.8 fL (78.0-98.0); Mean Platelet Volume 7.2 fL (7.4-10.4); Platelet Count 137 thou/uL (130-400); RBC Distribution Width 14.3 % (11.5-14.5); Red Blood Cell (RBC) Count 2.81 mill/uL (4.70-6.10); White Blood Cell (WBC) Count 14.8 thou/uL (4.8-10.8)
[2020-09-26] MEDS ORDERED: Sodium Chloride 0.9% 1,000 ML IV SCH (14:45)
[2020-09-26] MEDS ORDERED: Sodium Chloride 0.9% 500 ML IV SCH (14:45)
[2020-09-26] MEDS ORDERED: Pantoprazole 40 MG VIAL IVP SCH (14:45)
[2020-09-26 15:55] VITALS: TEMP 97.8
[2020-09-26 16:04] VITALS: BP 147/61
--- NOTE | 2020-09-27 09:20 | DIS ---
DATE OF ADMISSION: 09/18/2020 DATE OF DISCHARGE: 09/26/[address] [facility] on 09/26/2020. FINAL DIAGNOSES: 1. Gastrointestinal bleed: a. Passing large maroon stools, complicated by hypotension. b. Initial H and H on 09/19/2020, 15.4. Hemoglobin on 09/26 was 8.5. 2. Generalized weakness following hospitalization for COVID pneumonia: a. Complicated by marked decline in functional capabilities, requiring assistance with all his ADLs. b. Has been gradually improving, and walking a little, up to 10 feet. 3. Hospitalized at [facility] from 09/12/2020 until 09/18/2020 for COVID pneumonia with hypoxic respiratory failure. 4. COVID pneumonia: a. Complicated by acute respiratory failure with hypoxemia requiring supplemental O2 that has resolved. b. Initially treated with IV remdesivir and Decadron. c. Completed a 10-day course of isolation on 09/21/2020. 5. Coronary artery disease: a. Status post CAB in 2003 and redo in 2013. b. Heart catheterization in 2018 with placement of a bare metal stent in the LAD. Three of his bypass graft were patent. 6. Ischemic cardiomyopathy: a. Ejection fraction in 2019 was 30% to 35%. b. Complicated by episodes of congestive heart failure. c. Status post AICD, initially placed in October 2008, changed out to biventricular defibrillator in September 2014. d. No evidence of acute congestive heart failure. 7. Bilateral carotid artery disease: a. High-grade critical carotid artery stenosis, but not a surgical candidate. b. Asymptomatic. 8. History of transient ischemic attacks. a. Presented in 2018 with aphasia that resolved. b. No recurrence. 9. History of CVA in 2012: a. Presenting with aphasia, treated with tPA with resolution of all symptoms. 10. Diabetes, type 2: a. Insulin requiring. 11. BPH. 12. Spondylosis of the lumbar spine. 13. Diverticular disease of the colon. HISTORY OF PRESENT ILLNESS: The patient is an 85-year-old white male with a history of coronary artery disease, ischemic cardiomyopathy, ejection fraction of 30% to 35% with an AICD, carotid artery disease, and history of TIAs. He had been hospitalized at [facility] from 09/12/2020 until 09/18/2020 for COVID pneumonia with hypoxic respiratory failure. He was treated with IV remdesivir and Decadron and was placed on supplemental O2. He improved, but was left extremely weak with marked decline in his functional capability, requiring assistance with all his ADLs. He was transferred to [facility] to [facility] for purpose of physical therapy and occupational therapy in an effort to try to improve his general functional capability and for continued convalescence following his COVID pneumonia. During his hospital stay, he was continued on O2, but was usually only requiring 1 to 2 L by nasal cannula. He was very weak and required assistance with all his ADLs. He was making very slow gradual progress. He was tolerating sitting up into a chair and he was walking up to 10 feet. On 09/26/2020, he had had a bowel movement that looked dark and later he had another bowel movement that was extremely large and dark maroon-colored. His blood count on admission on 09/19 showed a hemoglobin of 15.4 and hemoglobin on 09/26 was 8.5. The patient was having a very significant GI bleed. He had been on Lovenox for DVT prophylaxis. He had also been on Plavix and aspirin for his coronary artery disease and he had been on some ibuprofen for some of the aches and pains associated with his COVID. All these were stopped. He had been on pantoprazole orally for GI prophylaxis, this was switched to 40 mg IV. He was placed to bedrest after this large maroon stool was passed and blood pressure at that time was 81/43, pulse was 63, O2 saturation was 98%. He was typed and crossed for 2 units of blood. An IV was started and he was receiving an initial 500 mL bolus of normal saline. After receiving part of the 500 mL bolus, his pressure was up to 116/82. He appeared pale. Arrangements have been made for his transfer to the emergency room there at [facility] in [place]. I have spoken to the emergency room physician, Dr. Jesse Gamino, who said they will accept the patient there. If blood is ready, we will begin a transfusion of 1 unit of packed RBCs. A second IV will be started and we will continue IV saline at 100 mL/h after the initial 500 mL bolus. The patient's code status is a full code. The patient's condition was stabilized and his blood pressure was very responsive to the fluid bolus and he should be stable for transfer to [facility]. Job ID: [id number] [id number]
== END 2020-09-26 16:08 | disposition short-term general hospital (02) | DRG 947 ==
LOC: MADMS 21:20
PROVIDERS: ADMIT Family Medicine; ATTEND Family Medicine
PROC: 8E0ZXY6 Isolation (ICD-10-PCS; principal; 2020-09-18)
DX: R53.1 Weakness (principal); J12.82 Pneumonia due to coronavirus disease 2019; U07.1 COVID-19; J96.01 Acute respiratory failure with hypoxia; K92.2 Gastrointestinal hemorrhage, unspecified; I25.5 Ischemic cardiomyopathy; E11.9 Type 2 diabetes mellitus without complications; I25.10 Atherosclerotic heart disease of native coronary artery without angina pectoris; M47.816 Spondylosis without myelopathy or radiculopathy, lumbar region; I65.23 Occlusion and stenosis of bilateral carotid arteries; M47.817 Spondylosis without myelopathy or radiculopathy, lumbosacral region; N40.0 Benign prostatic hyperplasia without lower urinary tract symptoms; K57.30 Diverticulosis of large intestine without perforation or abscess without bleeding; Z86.73 Personal history of transient ischemic attack (TIA), and cerebral infarction without residual deficits; Z88.8 Allergy status to other drugs, medicaments and biological substances; Z95.1 Presence of aortocoronary bypass graft; Z95.810 Presence of automatic (implantable) cardiac defibrillator; Z95.828 Presence of other vascular implants and grafts; Z79.899 Other long term (current) drug therapy; Z79.4 Long term (current) use of insulin; Z79.82 Long term (current) use of aspirin; Z79.890 Hormone replacement therapy; Z95.5 Presence of coronary angioplasty implant and graft
CPT/HCPCS: 36416; 36430; 80053; 85025; 86850; 86900; 86901; 36415-59; C9113; J1650; J1815; J7030; J7050; J8540; P9016

== ENCOUNTER 2020-09-30 18:54 | Inpatient (IN) | payer MEDICARE, BC ==
[2020-09-30] MEDS ORDERED: Spironolactone 25 MG TAB PO SCH (21:41)
[2020-09-30] MEDS ORDERED: Aspirin Chewable 81 MG TAB PO SCH (21:41)
[2020-09-30] MEDS ORDERED: traMADol HCl 50 MG TAB PO PRN ×2 (21:43→22:48)
[2020-09-30] MEDS ORDERED: Lantus 1000 UNITS/10 ML VIAL SC SCH (23:00)
[2020-09-30] MEDS ORDERED: Sotalol HCl 80 MG TAB PO SCH (23:00)
[2020-10-01] MEDS: Piperacillin/Tazobactam 3.375 GM in Sodium Chloride 0.9% 100 ML IVPB SCH ×3 (05:41→21:19)
[2020-10-01] MEDS: Levothyroxine Sodium 25 MCG TAB PO SCH (05:46)
[2020-10-01 07:39] LABS: ALT (SGPT) 428 U/L (8-55); AST (SGOT) 375 U/L (5-34); Albumin 3.5 g/dL (3.4-4.8); Alkaline Phosphatase 118 U/L (40-110); Anion Gap 19 mmol/L (10-20); BUN (Urea Nitrogen) 57 mg/dL (8.4-25.7); Bilirubin, Total 1.1 mg/dL (0.2-1.2); Calc. Creatinine Clearance 38 mL/min (70-130); Calcium 9.1 mg/dL (7.8-10.44); Carbon Dioxide 26 mmol/L (23-31); Chloride 99 mmol/L (98-107); Globulin 2.6 g/dL (2.4-3.5); Potassium 4.5 mmol/L (3.5-5.1); Protein, Total 6.1 g/dL (5.8-8.1); Sodium 139 mmol/L (136-145)
[2020-10-01 07:49] LABS: Glucose 53 mg/dL (83-110)
[2020-10-01 07:55] LABS: #Lymphocytes 1.4 thou/uL (1.20-3.40); #Monocytes 0.8 thou/uL (0.11-0.59); #Neutrophils 8.2 thou/uL (1.40-6.50); %Basophils 0.4 % (0.0-1.0); %Eosinophils 0.1 % (0.0-10.0); %Lymphocytes 13.7 % (21.0-51.0); %Monocytes 7.7 % (0.0-10.0); %Neutrophils 78.1 % (42.0-75.0); Hemoglobin 8.7 g/dL (14.0-18.0); Mean Corpuscular HGB CONC 32.4 g/dL (32.0-36.0); Mean Corpuscular Hemoglobin 30.2 pg (27.0-31.0); Mean Corpuscular Volume 93.3 fL (78.0-98.0); Mean Platelet Volume 8.4 fL (7.4-10.4); Platelet Count 129 thou/uL (130-400); RBC Distribution Width 15.7 % (11.5-14.5); Red Blood Cell (RBC) Count 2.88 mill/uL (4.70-6.10); White Blood Cell (WBC) Count 10.5 thou/uL (4.8-10.8)
[2020-10-01] MEDS: Cholecalciferol (Vitamin D3) 400 UNITS TAB PO SCH (08:13)
[2020-10-01] MEDS: Multivitamin W/ Minerals 1 TAB PO SCH (08:13)
[2020-10-01] MEDS: Sotalol HCl 80 MG TAB PO SCH ×2 (08:13→21:17)
[2020-10-01] MEDS: Zinc Sulfate 220 MG CAP PO SCH (08:13)
[2020-10-01] MEDS: Carvedilol 12.5 MG TAB PO SCH (08:14)
[2020-10-01] MEDS ORDERED: HumaLOG 300 UNITS/3 ML VIAL SC SCH (17:15)
[2020-10-01] MEDS ORDERED: Lantus 1000 UNITS/10 ML VIAL SC SCH (21:00)
[2020-10-01] MEDS: Lantus 1000 UNITS/10 ML VIAL SC SCH (21:27)
[2020-10-02] MEDS: Levothyroxine Sodium 25 MCG TAB PO SCH (05:37)
[2020-10-02] MEDS: Piperacillin/Tazobactam 3.375 GM in Sodium Chloride 0.9% 100 ML IVPB SCH ×3 (05:37→21:37)
[2020-10-02 07:36] LABS: ALT (SGPT) 315 U/L (8-55); AST (SGOT) 99 U/L (5-34); Albumin 3.5 g/dL (3.4-4.8); Alkaline Phosphatase 117 U/L (40-110); Anion Gap 16 mmol/L (10-20); BUN (Urea Nitrogen) 55 mg/dL (8.4-25.7); Bilirubin, Total 0.8 mg/dL (0.2-1.2); Calc. Creatinine Clearance 34 mL/min (70-130); Carbon Dioxide 30 mmol/L (23-31); Chloride 99 mmol/L (98-107); Globulin 2.7 g/dL (2.4-3.5); Glucose 271 mg/dL (83-110); Potassium 4.7 mmol/L (3.5-5.1); Protein, Total 6.2 g/dL (5.8-8.1); Sodium 140 mmol/L (136-145)
[2020-10-02 07:41] LABS: #Basophils 0.1 thou/uL (0.0-0.2); #Eosinphils 0.1 thou/uL (0.0-0.7); #Lymphocytes 1.1 thou/uL (1.20-3.40); #Monocytes 0.6 thou/uL (0.11-0.59); #Neutrophils 7.2 thou/uL (1.40-6.50); %Basophils 0.7 % (0.0-1.0); %Eosinophils 0.9 % (0.0-10.0); %Monocytes 6.9 % (0.0-10.0); %Neutrophils 79.6 % (42.0-75.0); Mean Corpuscular HGB CONC 31.5 g/dL (32.0-36.0); Mean Corpuscular Hemoglobin 29.5 pg (27.0-31.0); Mean Corpuscular Volume 93.6 fL (78.0-98.0); Mean Platelet Volume 7.2 fL (7.4-10.4); Platelet Count 132 thou/uL (130-400); RBC Distribution Width 15.3 % (11.5-14.5); Red Blood Cell (RBC) Count 3.05 mill/uL (4.70-6.10)
[2020-10-02] MEDS: Carvedilol 12.5 MG TAB PO SCH (08:10)
[2020-10-02] MEDS: Zinc Sulfate 220 MG CAP PO SCH (08:10)
[2020-10-02] MEDS: Multivitamin W/ Minerals 1 TAB PO SCH (08:10)
[2020-10-02] MEDS: Cholecalciferol (Vitamin D3) 400 UNITS TAB PO SCH (08:11)
[2020-10-02] MEDS: Sotalol HCl 80 MG TAB PO SCH ×2 (08:11→20:33)
[2020-10-02] MEDS ORDERED: Dextrose 5% in Water 1,000 ML IV PRN (08:15)
[2020-10-02] MEDS ORDERED: Dextrose 50% Abboject 50 ML SYRINGE IVP PRN (08:15)
[2020-10-02] MEDS: HumaLOG 300 UNITS/3 ML VIAL SC PRN ×2 (12:06→17:07)
[2020-10-02] MEDS: Lantus 1000 UNITS/10 ML VIAL SC SCH (20:35)
[2020-10-02] MEDS: Acetaminophen 325 MG TAB PO PRN (21:36)
[2020-10-03] MEDS: Levothyroxine Sodium 25 MCG TAB PO SCH (05:01)
[2020-10-03] MEDS: Piperacillin/Tazobactam 3.375 GM in Sodium Chloride 0.9% 100 ML IVPB SCH ×3 (05:03→22:18)
[2020-10-03] MEDS: Cholecalciferol (Vitamin D3) 400 UNITS TAB PO SCH (08:37)
[2020-10-03] MEDS: Sotalol HCl 80 MG TAB PO SCH ×2 (08:37→22:16)
[2020-10-03] MEDS: Zinc Sulfate 220 MG CAP PO SCH (08:38)
[2020-10-03] MEDS: Multivitamin W/ Minerals 1 TAB PO SCH (08:38)
[2020-10-03] MEDS: Carvedilol 12.5 MG TAB PO SCH (08:38)
[2020-10-03] MEDS ORDERED: Aspirin Chewable 81 MG TAB PO SCH (09:00)
[2020-10-03] MEDS: HumaLOG 300 UNITS/3 ML VIAL SC PRN ×3 (12:12→22:22)
[2020-10-03] MEDS: Lantus 1000 UNITS/10 ML VIAL SC SCH (22:15)
[2020-10-04] MEDS: Piperacillin/Tazobactam 3.375 GM in Sodium Chloride 0.9% 100 ML IVPB SCH ×3 (05:51→21:34)
[2020-10-04] MEDS: Levothyroxine Sodium 25 MCG TAB PO SCH (05:52)
[2020-10-04] MEDS: Zinc Sulfate 220 MG CAP PO SCH (08:12)
[2020-10-04] MEDS: Multivitamin W/ Minerals 1 TAB PO SCH (08:12)
[2020-10-04] MEDS: Cholecalciferol (Vitamin D3) 400 UNITS TAB PO SCH (08:13)
[2020-10-04] MEDS: Sotalol HCl 80 MG TAB PO SCH ×2 (08:13→21:17)
[2020-10-04] MEDS: Carvedilol 12.5 MG TAB PO SCH (08:13)
[2020-10-04] MEDS: Aspirin Chewable 81 MG TAB PO SCH (08:58)
[2020-10-04] MEDS: HumaLOG 300 UNITS/3 ML VIAL SC PRN (17:18)
[2020-10-04] MEDS: Lantus 1000 UNITS/10 ML VIAL SC SCH (21:17)
[2020-10-05] MEDS: Levothyroxine Sodium 25 MCG TAB PO SCH (05:24)
[2020-10-05 05:33] LABS: #Basophils 0.1 thou/uL (0.0-0.2); #Eosinphils 0.2 thou/uL (0.0-0.7); #Lymphocytes 1.1 thou/uL (1.20-3.40); #Monocytes 0.7 thou/uL (0.11-0.59); #Neutrophils 7.4 thou/uL (1.40-6.50); %Basophils 0.9 % (0.0-1.0); %Eosinophils 1.9 % (0.0-10.0); %Lymphocytes 11.3 % (21.0-51.0); %Monocytes 7.6 % (0.0-10.0); %Neutrophils 78.3 % (42.0-75.0); Hemoglobin 9.6 g/dL (14.0-18.0); Mean Corpuscular HGB CONC 32.1 g/dL (32.0-36.0); Mean Corpuscular Hemoglobin 29.9 pg (27.0-31.0); Mean Corpuscular Volume 93.2 fL (78.0-98.0); Mean Platelet Volume 7.6 fL (7.4-10.4); Platelet Count 172 thou/uL (130-400); RBC Distribution Width 15.4 % (11.5-14.5); White Blood Cell (WBC) Count 9.5 thou/uL (4.8-10.8)
[2020-10-05 05:44] LABS: Anion Gap 16 mmol/L (10-20); BUN (Urea Nitrogen) 47 mg/dL (8.4-25.7); Calc. Creatinine Clearance 41 mL/min (70-130); Calcium 8.9 mg/dL (7.8-10.44); Carbon Dioxide 28 mmol/L (23-31); Chloride 98 mmol/L (98-107); Glucose 164 mg/dL (83-110); Potassium 5.2 mmol/L (3.5-5.1); Sodium 137 mmol/L (136-145)
[2020-10-05] MEDS: Cholecalciferol (Vitamin D3) 400 UNITS TAB PO SCH (09:50)
[2020-10-05] MEDS: Multivitamin W/ Minerals 1 TAB PO SCH (09:50)
[2020-10-05] MEDS: Aspirin Chewable 81 MG TAB PO SCH (09:50)
[2020-10-05] MEDS: Carvedilol 12.5 MG TAB PO SCH (09:50)
[2020-10-05] MEDS: Sotalol HCl 80 MG TAB PO SCH ×2 (09:51→20:39)
[2020-10-05] MEDS: Zinc Sulfate 220 MG CAP PO SCH (09:51)
[2020-10-05] MEDS: HumaLOG 300 UNITS/3 ML VIAL SC PRN (13:18)
[2020-10-05] MEDS: Lantus 1000 UNITS/10 ML VIAL SC SCH (20:47)
[2020-10-06] MEDS: Levothyroxine Sodium 25 MCG TAB PO SCH (05:03)
[2020-10-06] MEDS: Carvedilol 12.5 MG TAB PO SCH (09:03)
[2020-10-06] MEDS: Zinc Sulfate 220 MG CAP PO SCH (09:03)
[2020-10-06] MEDS: Aspirin Chewable 81 MG TAB PO SCH (09:03)
[2020-10-06] MEDS: Multivitamin W/ Minerals 1 TAB PO SCH (09:04)
[2020-10-06] MEDS: Cholecalciferol (Vitamin D3) 400 UNITS TAB PO SCH (09:04)
[2020-10-06] MEDS: Sotalol HCl 80 MG TAB PO SCH ×2 (09:04→20:44)
[2020-10-06] MEDS: Acetaminophen 325 MG TAB PO PRN ×2 (09:06→17:38)
[2020-10-06] MEDS: HumaLOG 300 UNITS/3 ML VIAL SC PRN ×3 (09:06→17:39)
[2020-10-06] MEDS: Lantus 1000 UNITS/10 ML VIAL SC SCH (20:43)
[2020-10-07] MEDS: Levothyroxine Sodium 25 MCG TAB PO SCH (05:04)
[2020-10-07 05:49] LABS: #Eosinphils 0.2 thou/uL (0.0-0.7)
[2020-10-07 05:59] LABS: Anion Gap 11 mmol/L (10-20); BUN (Urea Nitrogen) 55 mg/dL (8.4-25.7); Calc. Creatinine Clearance 45 mL/min (70-130); Calcium 8.7 mg/dL (7.8-10.44); Carbon Dioxide 29 mmol/L (23-31); Chloride 100 mmol/L (98-107); Glucose 247 mg/dL (83-110); Potassium 5.6 mmol/L (3.5-5.1); Sodium 134 mmol/L (136-145)
[2020-10-07 06:16] LABS: Hemoglobin 8.3 g/dL (14.0-18.0)
[2020-10-07 06:25] LABS: #Basophils 0.1 thou/uL (0.0-0.2); #Lymphocytes 1.2 thou/uL (1.20-3.40); #Monocytes 0.5 thou/uL (0.11-0.59); #Neutrophils 5.4 thou/uL (1.40-6.50); %Basophils 0.9 % (0.0-1.0); %Eosinophils 2.7 % (0.0-10.0); %Lymphocytes 16.6 % (21.0-51.0); %Monocytes 6.8 % (0.0-10.0); Mean Corpuscular HGB CONC 31.6 g/dL (32.0-36.0); Mean Corpuscular Hemoglobin 28.7 pg (27.0-31.0); Mean Corpuscular Volume 90.9 fL (78.0-98.0); Mean Platelet Volume 8.5 fL (7.4-10.4); Platelet Count 194 thou/uL (130-400); RBC Distribution Width 15.7 % (11.5-14.5); Red Blood Cell (RBC) Count 2.88 mill/uL (4.70-6.10); White Blood Cell (WBC) Count 7.3 thou/uL (4.8-10.8)
[2020-10-07] MEDS: Cholecalciferol (Vitamin D3) 400 UNITS TAB PO SCH (08:23)
[2020-10-07] MEDS: Zinc Sulfate 220 MG CAP PO SCH (08:23)
[2020-10-07] MEDS: Aspirin Chewable 81 MG TAB PO SCH (08:23)
[2020-10-07] MEDS: Carvedilol 12.5 MG TAB PO SCH (08:23)
[2020-10-07] MEDS: Sotalol HCl 80 MG TAB PO SCH ×2 (08:23→21:21)
[2020-10-07] MEDS: Multivitamin W/ Minerals 1 TAB PO SCH (08:23)
[2020-10-07] MEDS: Sucralfate 1 GM/10 ML UDCUP PO SCH ×4 (08:35→21:21)
[2020-10-07] MEDS: Acetaminophen 325 MG TAB PO PRN ×2 (08:36→21:29)
[2020-10-07] MEDS: HumaLOG 300 UNITS/3 ML VIAL SC PRN ×2 (09:09→16:54)
[2020-10-07] MEDS: Lantus 1000 UNITS/10 ML VIAL SC SCH (21:24)
[2020-10-08 05:15] LABS: #Basophils 0.1 thou/uL (0.0-0.2); #Eosinphils 0.2 thou/uL (0.0-0.7); #Lymphocytes 1.5 thou/uL (1.20-3.40); #Monocytes 0.5 thou/uL (0.11-0.59); #Neutrophils 5.5 thou/uL (1.40-6.50); %Basophils 0.9 % (0.0-1.0); %Eosinophils 3.2 % (0.0-10.0); %Lymphocytes 19.4 % (21.0-51.0); %Monocytes 6.4 % (0.0-10.0); %Neutrophils 70.2 % (42.0-75.0); Hemoglobin 8.3 g/dL (14.0-18.0); Mean Corpuscular HGB CONC 32.3 g/dL (32.0-36.0); Mean Corpuscular Hemoglobin 28.9 pg (27.0-31.0); Mean Corpuscular Volume 89.7 fL (78.0-98.0); Mean Platelet Volume 8.4 fL (7.4-10.4); Platelet Count 204 thou/uL (130-400); RBC Distribution Width 15.8 % (11.5-14.5); Red Blood Cell (RBC) Count 2.88 mill/uL (4.70-6.10); White Blood Cell (WBC) Count 7.8 thou/uL (4.8-10.8)
[2020-10-08] MEDS: Levothyroxine Sodium 25 MCG TAB PO SCH (05:30)
[2020-10-08 05:40] LABS: Anion Gap 12 mmol/L (10-20); Carbon Dioxide 28 mmol/L (23-31); Chloride 101 mmol/L (98-107); Potassium 5.3 mmol/L (3.5-5.1); Sodium 135 mmol/L (136-145)
[2020-10-08 05:41] LABS: BUN (Urea Nitrogen) 51 mg/dL (8.4-25.7); Calc. Creatinine Clearance 48 mL/min (70-130); Calcium 8.6 mg/dL (7.8-10.44); Glucose 86 mg/dL (83-110)
[2020-10-08] MEDS: Zinc Sulfate 220 MG CAP PO SCH (08:18)
[2020-10-08] MEDS: Sucralfate 1 GM/10 ML UDCUP PO SCH ×4 (08:18→21:16)
[2020-10-08] MEDS: Cholecalciferol (Vitamin D3) 400 UNITS TAB PO SCH (08:18)
[2020-10-08] MEDS: Multivitamin W/ Minerals 1 TAB PO SCH (08:18)
[2020-10-08] MEDS: Sotalol HCl 80 MG TAB PO SCH ×2 (08:18→21:16)
[2020-10-08] MEDS: Carvedilol 12.5 MG TAB PO SCH (08:18)
[2020-10-08] MEDS: HumaLOG 300 UNITS/3 ML VIAL SC PRN (17:16)
[2020-10-08] MEDS: Lantus 1000 UNITS/10 ML VIAL SC SCH (21:21)
[2020-10-09 05:30] LABS: #Basophils 0.1 thou/uL (0.0-0.2); #Eosinphils 0.2 thou/uL (0.0-0.7); #Lymphocytes 1.2 thou/uL (1.20-3.40); #Monocytes 0.6 thou/uL (0.11-0.59); #Neutrophils 6.4 thou/uL (1.40-6.50); %Eosinophils 2.6 % (0.0-10.0); %Lymphocytes 13.7 % (21.0-51.0); %Monocytes 7.4 % (0.0-10.0); %Neutrophils 75.3 % (42.0-75.0); Hemoglobin 8.4 g/dL (14.0-18.0); Mean Corpuscular Volume 90.2 fL (78.0-98.0); Mean Platelet Volume 8.1 fL (7.4-10.4); Platelet Count 228 thou/uL (130-400); RBC Distribution Width 16.4 % (11.5-14.5); White Blood Cell (WBC) Count 8.5 thou/uL (4.8-10.8)
[2020-10-09] MEDS: Levothyroxine Sodium 25 MCG TAB PO SCH (05:39)
[2020-10-09 05:42] LABS: Anion Gap 12 mmol/L (10-20); BUN (Urea Nitrogen) 51 mg/dL (8.4-25.7); Calc. Creatinine Clearance 49 mL/min (70-130); Calcium 8.7 mg/dL (7.8-10.44); Carbon Dioxide 27 mmol/L (23-31); Chloride 101 mmol/L (98-107); Glucose 277 mg/dL (83-110); Potassium 5.8 mmol/L (3.5-5.1); Sodium 134 mmol/L (136-145)
[2020-10-09] MEDS: Multivitamin W/ Minerals 1 TAB PO SCH (08:05)
[2020-10-09] MEDS: Zinc Sulfate 220 MG CAP PO SCH (08:05)
[2020-10-09] MEDS: Cholecalciferol (Vitamin D3) 400 UNITS TAB PO SCH (08:06)
[2020-10-09] MEDS: Sotalol HCl 80 MG TAB PO SCH ×2 (08:06→20:36)
[2020-10-09] MEDS: HumaLOG 300 UNITS/3 ML VIAL SC PRN ×2 (08:06→17:27)
[2020-10-09] MEDS: Carvedilol 12.5 MG TAB PO SCH (08:06)
[2020-10-09] MEDS: Sucralfate 1 GM/10 ML UDCUP PO SCH ×4 (08:08→20:38)
[2020-10-09] MEDS: Lantus 1000 UNITS/10 ML VIAL SC SCH (20:37)
[2020-10-10] MEDS: Levothyroxine Sodium 25 MCG TAB PO SCH (05:41)
[2020-10-10] MEDS: Sucralfate 1 GM/10 ML UDCUP PO SCH ×4 (08:18→20:59)
[2020-10-10] MEDS: Cholecalciferol (Vitamin D3) 400 UNITS TAB PO SCH (08:19)
[2020-10-10] MEDS: Zinc Sulfate 220 MG CAP PO SCH (08:19)
[2020-10-10] MEDS: Sotalol HCl 80 MG TAB PO SCH ×2 (08:19→21:00)
[2020-10-10] MEDS: Multivitamin W/ Minerals 1 TAB PO SCH (08:24)
[2020-10-10] MEDS: Carvedilol 12.5 MG TAB PO SCH (08:24)
[2020-10-10] MEDS: Furosemide 40 MG TAB PO SCH (08:54)
[2020-10-10] MEDS: Acetaminophen 325 MG TAB PO PRN (11:25)
[2020-10-10] MEDS: Lantus 1000 UNITS/10 ML VIAL SC SCH (21:03)
[2020-10-11] MEDS: Levothyroxine Sodium 25 MCG TAB PO SCH (05:51)
[2020-10-11 07:13] LABS: #Eosinphils 0.2 thou/uL (0.0-0.7); #Lymphocytes 1.5 thou/uL (1.20-3.40); #Monocytes 0.8 thou/uL (0.11-0.59); #Neutrophils 5.6 thou/uL (1.40-6.50); %Basophils 0.6 % (0.0-1.0); %Lymphocytes 17.9 % (21.0-51.0); %Monocytes 10.4 % (0.0-10.0); %Neutrophils 68.2 % (42.0-75.0); Hemoglobin 8.9 g/dL (14.0-18.0); Mean Corpuscular HGB CONC 31.2 g/dL (32.0-36.0); Mean Corpuscular Hemoglobin 27.7 pg (27.0-31.0); Mean Platelet Volume 7.8 fL (7.4-10.4); Platelet Count 220 thou/uL (130-400); RBC Distribution Width 17.2 % (11.5-14.5); Red Blood Cell (RBC) Count 3.22 mill/uL (4.70-6.10); White Blood Cell (WBC) Count 8.1 thou/uL (4.8-10.8)
[2020-10-11 07:25] LABS: Anion Gap 12 mmol/L (10-20); BUN (Urea Nitrogen) 49 mg/dL (8.4-25.7); Calc. Creatinine Clearance 49 mL/min (70-130); Calcium 8.8 mg/dL (7.8-10.44); Carbon Dioxide 30 mmol/L (23-31); Chloride 100 mmol/L (98-107); Glucose 160 mg/dL (83-110); Potassium 4.9 mmol/L (3.5-5.1); Sodium 137 mmol/L (136-145)
[2020-10-11] MEDS: Cholecalciferol (Vitamin D3) 400 UNITS TAB PO SCH (08:31)
[2020-10-11] MEDS: Furosemide 40 MG TAB PO SCH (08:31)
[2020-10-11] MEDS: Sucralfate 1 GM/10 ML UDCUP PO SCH ×4 (08:31→21:10)
[2020-10-11] MEDS: Zinc Sulfate 220 MG CAP PO SCH (08:31)
[2020-10-11] MEDS: Multivitamin W/ Minerals 1 TAB PO SCH (08:31)
[2020-10-11] MEDS: Sotalol HCl 80 MG TAB PO SCH ×2 (08:31→21:09)
[2020-10-11] MEDS: Carvedilol 12.5 MG TAB PO SCH (08:31)
[2020-10-11] MEDS: HumaLOG 300 UNITS/3 ML VIAL SC PRN (17:32)
[2020-10-11] MEDS: Lantus 1000 UNITS/10 ML VIAL SC SCH (21:10)
[2020-10-12] MEDS: Levothyroxine Sodium 25 MCG TAB PO SCH (05:39)
[2020-10-12] MEDS: Zinc Sulfate 220 MG CAP PO SCH (08:10)
[2020-10-12] MEDS: Furosemide 40 MG TAB PO SCH (08:10)
[2020-10-12] MEDS: Carvedilol 12.5 MG TAB PO SCH (08:10)
[2020-10-12] MEDS: Cholecalciferol (Vitamin D3) 400 UNITS TAB PO SCH (08:10)
[2020-10-12] MEDS: Sucralfate 1 GM/10 ML UDCUP PO SCH ×4 (08:10→20:43)
[2020-10-12] MEDS: Multivitamin W/ Minerals 1 TAB PO SCH (08:10)
[2020-10-12] MEDS: Sotalol HCl 80 MG TAB PO SCH ×2 (08:10→20:39)
[2020-10-12] MEDS: HumaLOG 300 UNITS/3 ML VIAL SC PRN (16:59)
[2020-10-12] MEDS: Acetaminophen 325 MG TAB PO PRN (20:41)
[2020-10-12] MEDS: Lantus 1000 UNITS/10 ML VIAL SC SCH (20:44)
[2020-10-13] MEDS: Levothyroxine Sodium 25 MCG TAB PO SCH (05:35)
[2020-10-13] MEDS: Furosemide 40 MG TAB PO SCH (08:01)
[2020-10-13] MEDS: Sotalol HCl 80 MG TAB PO SCH ×2 (08:01→20:24)
[2020-10-13] MEDS: Cholecalciferol (Vitamin D3) 400 UNITS TAB PO SCH (08:01)
[2020-10-13] MEDS: Multivitamin W/ Minerals 1 TAB PO SCH (08:01)
[2020-10-13] MEDS: Zinc Sulfate 220 MG CAP PO SCH (08:01)
[2020-10-13] MEDS: Carvedilol 12.5 MG TAB PO SCH (08:01)
[2020-10-13] MEDS: Sucralfate 1 GM/10 ML UDCUP PO SCH ×4 (08:01→20:26)
[2020-10-13] MEDS: HumaLOG 300 UNITS/3 ML VIAL SC PRN (17:40)
[2020-10-13] MEDS: Lantus 1000 UNITS/10 ML VIAL SC SCH (20:26)
[2020-10-14 05:21] LABS: #Basophils 0.1 thou/uL (0.0-0.2); #Eosinphils 0.1 thou/uL (0.0-0.7); #Lymphocytes 1.5 thou/uL (1.20-3.40); #Monocytes 0.9 thou/uL (0.11-0.59); %Basophils 1.1 % (0.0-1.0); %Eosinophils 1.2 % (0.0-10.0); %Lymphocytes 14.1 % (21.0-51.0); %Monocytes 8.2 % (0.0-10.0); %Neutrophils 75.4 % (42.0-75.0); Hemoglobin 8.5 g/dL (14.0-18.0); Mean Corpuscular HGB CONC 31.4 g/dL (32.0-36.0); Mean Corpuscular Hemoglobin 27.6 pg (27.0-31.0); Mean Corpuscular Volume 87.9 fL (78.0-98.0); Mean Platelet Volume 7.7 fL (7.4-10.4); Platelet Count 266 thou/uL (130-400); RBC Distribution Width 17.3 % (11.5-14.5); Red Blood Cell (RBC) Count 3.08 mill/uL (4.70-6.10); White Blood Cell (WBC) Count 10.6 thou/uL (4.8-10.8)
[2020-10-14] MEDS: Levothyroxine Sodium 25 MCG TAB PO SCH (05:29)
[2020-10-14 05:38] LABS: Anion Gap 17 mmol/L (10-20); BUN (Urea Nitrogen) 53 mg/dL (8.4-25.7); Calc. Creatinine Clearance 42 mL/min (70-130); Calcium 8.8 mg/dL (7.8-10.44); Carbon Dioxide 26 mmol/L (23-31); Chloride 100 mmol/L (98-107); Glucose 78 mg/dL (83-110); Potassium 4.5 mmol/L (3.5-5.1); Sodium 138 mmol/L (136-145)
[2020-10-14] MEDS: Acetaminophen 325 MG TAB PO PRN ×2 (08:14→20:31)
[2020-10-14] MEDS: Furosemide 40 MG TAB PO SCH (08:15)
[2020-10-14] MEDS: Carvedilol 12.5 MG TAB PO SCH (08:15)
[2020-10-14] MEDS: Sotalol HCl 80 MG TAB PO SCH ×2 (08:15→20:30)
[2020-10-14] MEDS: Sucralfate 1 GM/10 ML UDCUP PO SCH ×4 (08:15→20:30)
[2020-10-14] MEDS: Cholecalciferol (Vitamin D3) 400 UNITS TAB PO SCH (08:15)
[2020-10-14] MEDS: Zinc Sulfate 220 MG CAP PO SCH (08:15)
[2020-10-14] MEDS: Multivitamin W/ Minerals 1 TAB PO SCH (08:18)
[2020-10-14] MEDS: Lantus 1000 UNITS/10 ML VIAL SC SCH (20:39)
[2020-10-15] MEDS: Levothyroxine Sodium 25 MCG TAB PO SCH (05:39)
[2020-10-15] MEDS: Sucralfate 1 GM/10 ML UDCUP PO SCH ×4 (08:59→20:40)
[2020-10-15] MEDS: Multivitamin W/ Minerals 1 TAB PO SCH (09:00)
[2020-10-15] MEDS: Carvedilol 12.5 MG TAB PO SCH ×2 (09:00→20:37)
[2020-10-15] MEDS: Cholecalciferol (Vitamin D3) 400 UNITS TAB PO SCH (09:00)
[2020-10-15] MEDS: Sotalol HCl 80 MG TAB PO SCH ×2 (09:00→20:38)
[2020-10-15] MEDS: Furosemide 40 MG TAB PO SCH ×2 (09:00→13:36)
[2020-10-15] MEDS: Zinc Sulfate 220 MG CAP PO SCH (09:01)
[2020-10-15] MEDS: Acetaminophen 325 MG TAB PO PRN (09:01)
[2020-10-15] MEDS: HumaLOG 300 UNITS/3 ML VIAL SC PRN (17:27)
[2020-10-15] MEDS: Lantus 1000 UNITS/10 ML VIAL SC SCH (20:40)
[2020-10-16] MEDS: Multivitamin W/ Minerals 1 TAB PO SCH (08:11)
[2020-10-16] MEDS: Furosemide 40 MG TAB PO SCH ×2 (08:12→14:12)
[2020-10-16] MEDS: Carvedilol 12.5 MG TAB PO SCH ×2 (08:12→20:30)
[2020-10-16] MEDS: Sotalol HCl 80 MG TAB PO SCH ×2 (08:12→20:30)
[2020-10-16] MEDS: Sucralfate 1 GM/10 ML UDCUP PO SCH ×4 (08:12→20:33)
[2020-10-16] MEDS: Cholecalciferol (Vitamin D3) 400 UNITS TAB PO SCH (08:12)
[2020-10-16] MEDS: Levothyroxine Sodium 25 MCG TAB PO SCH (08:13)
[2020-10-16] MEDS: Zinc Sulfate 220 MG CAP PO SCH (08:13)
[2020-10-16] MEDS: Metolazone 5 MG TAB PO SCH (09:03)
[2020-10-16] MEDS: HumaLOG 300 UNITS/3 ML VIAL SC PRN (17:04)
[2020-10-16] MEDS: Lantus 1000 UNITS/10 ML VIAL SC SCH (20:27)
[2020-10-17 05:21] LABS: #Eosinphils 0.1 thou/uL (0.0-0.7); #Lymphocytes 1.3 thou/uL (1.20-3.40); #Monocytes 0.5 thou/uL (0.11-0.59); #Neutrophils 4.1 thou/uL (1.40-6.50); %Basophils 0.7 % (0.0-1.0); %Eosinophils 1.4 % (0.0-10.0); %Lymphocytes 21.1 % (21.0-51.0); %Monocytes 8.7 % (0.0-10.0); %Neutrophils 68.2 % (42.0-75.0); Hemoglobin 7.8 g/dL (14.0-18.0); Mean Corpuscular HGB CONC 32.1 g/dL (32.0-36.0); Mean Corpuscular Hemoglobin 27.5 pg (27.0-31.0); Mean Corpuscular Volume 85.7 fL (78.0-98.0); Mean Platelet Volume 7.4 fL (7.4-10.4); Platelet Count 163 thou/uL (130-400); RBC Distribution Width 17.6 % (11.5-14.5); Red Blood Cell (RBC) Count 2.83 mill/uL (4.70-6.10)
[2020-10-17 05:32] LABS: Anion Gap 15 mmol/L (10-20); BUN (Urea Nitrogen) 69 mg/dL (8.4-25.7); Calc. Creatinine Clearance 41 mL/min (70-130); Calcium 8.8 mg/dL (7.8-10.44); Carbon Dioxide 35 mmol/L (23-31); Chloride 94 mmol/L (98-107); Glucose 153 mg/dL (83-110); Potassium 3.5 mmol/L (3.5-5.1); Sodium 140 mmol/L (136-145)
[2020-10-17] MEDS: Levothyroxine Sodium 25 MCG TAB PO SCH (05:40)
[2020-10-17] MEDS: Metolazone 5 MG TAB PO SCH (08:04)
[2020-10-17] MEDS: Sucralfate 1 GM/10 ML UDCUP PO SCH ×4 (08:04→21:01)
[2020-10-17] MEDS: Carvedilol 12.5 MG TAB PO SCH ×2 (08:06→21:00)
[2020-10-17] MEDS: Multivitamin W/ Minerals 1 TAB PO SCH (08:06)
[2020-10-17] MEDS: Cholecalciferol (Vitamin D3) 400 UNITS TAB PO SCH (08:06)
[2020-10-17] MEDS: Zinc Sulfate 220 MG CAP PO SCH (08:06)
[2020-10-17] MEDS: Furosemide 40 MG TAB PO SCH ×2 (08:06→14:15)
[2020-10-17] MEDS: Sotalol HCl 80 MG TAB PO SCH ×2 (08:06→20:56)
[2020-10-17] MEDS: HumaLOG 300 UNITS/3 ML VIAL SC PRN (16:49)
[2020-10-17] MEDS: Lantus 1000 UNITS/10 ML VIAL SC SCH (21:00)
[2020-10-18] MEDS: Levothyroxine Sodium 25 MCG TAB PO SCH (05:34)
[2020-10-18 06:02] LABS: #Lymphocytes 1.2 thou/uL (1.20-3.40); #Monocytes 0.7 thou/uL (0.11-0.59); #Neutrophils 4.7 thou/uL (1.40-6.50); %Basophils 0.7 % (0.0-1.0); %Eosinophils 0.5 % (0.0-10.0); %Monocytes 10.2 % (0.0-10.0); %Neutrophils 70.6 % (42.0-75.0); Hemoglobin 7.4 g/dL (14.0-18.0); Mean Corpuscular HGB CONC 30.1 g/dL (32.0-36.0); Mean Corpuscular Hemoglobin 25.8 pg (27.0-31.0); Mean Corpuscular Volume 85.7 fL (78.0-98.0); Mean Platelet Volume 7.3 fL (7.4-10.4); Platelet Count 164 thou/uL (130-400); Red Blood Cell (RBC) Count 2.87 mill/uL (4.70-6.10); White Blood Cell (WBC) Count 6.6 thou/uL (4.8-10.8)
[2020-10-18 06:21] LABS: Anion Gap 16 mmol/L (10-20); BUN (Urea Nitrogen) 66 mg/dL (8.4-25.7); Calc. Creatinine Clearance 44 mL/min (70-130); Calcium 8.7 mg/dL (7.8-10.44); Carbon Dioxide 35 mmol/L (23-31); Glucose 157 mg/dL (83-110)
[2020-10-18 06:29] LABS: Chloride 90 mmol/L (98-107); Sodium 138 mmol/L (136-145)
[2020-10-18] MEDS: Cholecalciferol (Vitamin D3) 400 UNITS TAB PO SCH (07:56)
[2020-10-18] MEDS: Sucralfate 1 GM/10 ML UDCUP PO SCH ×4 (07:56→20:08)
[2020-10-18] MEDS: Furosemide 40 MG TAB PO SCH ×2 (07:56→14:20)
[2020-10-18] MEDS: Sotalol HCl 80 MG TAB PO SCH ×2 (07:56→20:07)
[2020-10-18] MEDS: Zinc Sulfate 220 MG CAP PO SCH (07:56)
[2020-10-18] MEDS: Multivitamin W/ Minerals 1 TAB PO SCH (07:57)
[2020-10-18] MEDS: Carvedilol 12.5 MG TAB PO SCH ×2 (07:57→20:08)
[2020-10-18] MEDS: Metolazone 5 MG TAB PO SCH (07:57)
[2020-10-18] MEDS: HumaLOG 300 UNITS/3 ML VIAL SC PRN ×2 (07:58→16:48)
[2020-10-18] MEDS ORDERED: Clotrimazole 1% Cream 15 GM TUBE TOP SCH (11:15)
[2020-10-18] MEDS: Lantus 1000 UNITS/10 ML VIAL SC SCH (20:07)
[2020-10-18] MEDS: Clotrimazole 1% Cream 15 GM TUBE TOP SCH (20:08)
[2020-10-19] MEDS: Levothyroxine Sodium 25 MCG TAB PO SCH (05:19)
[2020-10-19] MEDS: Sotalol HCl 80 MG TAB PO SCH ×2 (08:37→20:23)
[2020-10-19] MEDS: Carvedilol 12.5 MG TAB PO SCH ×2 (08:37→20:23)
[2020-10-19] MEDS: Furosemide 40 MG TAB PO SCH ×2 (08:37→14:00)
[2020-10-19] MEDS: Cholecalciferol (Vitamin D3) 400 UNITS TAB PO SCH (08:37)
[2020-10-19] MEDS: Multivitamin W/ Minerals 1 TAB PO SCH (08:37)
[2020-10-19] MEDS: Sucralfate 1 GM/10 ML UDCUP PO SCH ×4 (08:37→20:25)
[2020-10-19] MEDS: Metolazone 5 MG TAB PO SCH (08:37)
[2020-10-19] MEDS: Clotrimazole 1% Cream 15 GM TUBE TOP SCH ×2 (08:41→20:25)
[2020-10-19] MEDS: Zinc Sulfate 220 MG CAP PO SCH (08:41)
[2020-10-19] MEDS: HumaLOG 300 UNITS/3 ML VIAL SC PRN (17:51)
[2020-10-19] MEDS: Lantus 1000 UNITS/10 ML VIAL SC SCH (20:27)
[2020-10-20] MEDS: Levothyroxine Sodium 25 MCG TAB PO SCH (05:24)
[2020-10-20 05:39] LABS: Anion Gap 13 mmol/L (10-20); BUN (Urea Nitrogen) 62 mg/dL (8.4-25.7); Calc. Creatinine Clearance 42 mL/min (70-130); Calcium 9.3 mg/dL (7.8-10.44); Glucose 205 mg/dL (83-110)
[2020-10-20 05:47] LABS: Chloride 84 mmol/L (98-107); Sodium 139 mmol/L (136-145)
[2020-10-20 05:54] LABS: #Eosinphils 0.1 thou/uL (0.0-0.7); #Lymphocytes 1.3 thou/uL (1.20-3.40); #Monocytes 0.9 thou/uL (0.11-0.59); #Neutrophils 5.7 thou/uL (1.40-6.50); %Basophils 0.5 % (0.0-1.0); %Eosinophils 0.7 % (0.0-10.0); %Lymphocytes 16.9 % (21.0-51.0); %Monocytes 10.8 % (0.0-10.0); %Neutrophils 71.1 % (42.0-75.0); Hypochromia SLIGHT = 6-15 cells (100X) (0-5/hpf); MDiff Complete? YES; Mean Corpuscular HGB CONC 30.6 g/dL (32.0-36.0); Mean Corpuscular Hemoglobin 26.3 pg (27.0-31.0); Mean Corpuscular Volume 86.1 fL (78.0-98.0); Mean Platelet Volume 7.8 fL (7.4-10.4); Microcytosis SLIGHT = 6-15 cells (100X) (0-5/hpf); Platelet Count 159 thou/uL (130-400); Platelet Morphology Comment Appears Adequate; Polychromasia SLIGHT = 2-3 cells (100X) (0-2/hpf); Red Blood Cell (RBC) Count 3.04 mill/uL (4.70-6.10); White Blood Cell (WBC) Count 7.9 thou/uL (4.8-10.8)
[2020-10-20 06:07] LABS: Carbon Dioxide 46 mmol/L (23-31); Potassium 2.9 mmol/L (3.5-5.1)
[2020-10-20] MEDS: Metolazone 5 MG TAB PO SCH (08:13)
[2020-10-20] MEDS: Sucralfate 1 GM/10 ML UDCUP PO SCH ×4 (08:13→20:20)
[2020-10-20] MEDS: Potassium Chloride 20 MEQ TAB PO SCH ×4 (08:13→17:10)
[2020-10-20] MEDS: Furosemide 40 MG TAB PO SCH ×2 (08:14→14:51)
[2020-10-20] MEDS: Zinc Sulfate 220 MG CAP PO SCH (08:14)
[2020-10-20] MEDS: Multivitamin W/ Minerals 1 TAB PO SCH (08:14)
[2020-10-20] MEDS: Cholecalciferol (Vitamin D3) 400 UNITS TAB PO SCH (08:14)
[2020-10-20] MEDS: Carvedilol 12.5 MG TAB PO SCH ×2 (08:14→20:18)
[2020-10-20] MEDS: Sotalol HCl 80 MG TAB PO SCH ×2 (08:14→20:17)
[2020-10-20] MEDS: Clotrimazole 1% Cream 15 GM TUBE TOP SCH ×2 (08:15→20:19)
[2020-10-20] MEDS: HumaLOG 300 UNITS/3 ML VIAL SC PRN ×2 (08:22→18:07)
[2020-10-20] MEDS: Lantus 1000 UNITS/10 ML VIAL SC SCH (20:17)
[2020-10-21] MEDS: Levothyroxine Sodium 25 MCG TAB PO SCH (05:23)
[2020-10-21] MEDS: Potassium Chloride 20 MEQ TAB PO SCH ×2 (07:48→16:57)
[2020-10-21] MEDS: Furosemide 40 MG TAB PO SCH ×2 (07:48→14:27)
[2020-10-21] MEDS: Sotalol HCl 80 MG TAB PO SCH ×2 (07:48→21:23)
[2020-10-21] MEDS: Cholecalciferol (Vitamin D3) 400 UNITS TAB PO SCH (07:48)
[2020-10-21] MEDS: Multivitamin W/ Minerals 1 TAB PO SCH (07:48)
[2020-10-21] MEDS: Zinc Sulfate 220 MG CAP PO SCH (07:48)
[2020-10-21] MEDS: Metolazone 5 MG TAB PO SCH (07:48)
[2020-10-21] MEDS: HumaLOG 300 UNITS/3 ML VIAL SC PRN ×2 (07:49→16:55)
[2020-10-21] MEDS: Sucralfate 1 GM/10 ML UDCUP PO SCH ×4 (07:49→21:24)
[2020-10-21] MEDS: Carvedilol 12.5 MG TAB PO SCH ×2 (07:49→21:23)
[2020-10-21] MEDS: Clotrimazole 1% Cream 15 GM TUBE TOP SCH ×2 (07:49→21:26)
[2020-10-21] MEDS: Lantus 1000 UNITS/10 ML VIAL SC SCH (21:19)
[2020-10-22 05:36] LABS: Anion Gap 18 mmol/L (10-20); BUN (Urea Nitrogen) 65 mg/dL (8.4-25.7); Calc. Creatinine Clearance 43 mL/min (70-130); Calcium 9.6 mg/dL (7.8-10.44); Glucose 244 mg/dL (83-110)
[2020-10-22 05:44] LABS: Chloride 82 mmol/L (98-107); Potassium 3.6 mmol/L (3.5-5.1); Sodium 139 mmol/L (136-145)
[2020-10-22 05:48] LABS: #Basophils 0.1 thou/uL (0.0-0.2); #Eosinphils 0.1 thou/uL (0.0-0.7); #Lymphocytes 1.6 thou/uL (1.20-3.40); #Monocytes 1.3 thou/uL (0.11-0.59); #Neutrophils 7.2 thou/uL (1.40-6.50); %Eosinophils 0.5 % (0.0-10.0); %Lymphocytes 15.3 % (21.0-51.0); %Neutrophils 70.2 % (42.0-75.0); Hemoglobin 8.6 g/dL (14.0-18.0); Hypochromia MODERATE=16-30 cells (100X) (0-5/hpf); MDiff Complete? YES; Mean Corpuscular HGB CONC 31.9 g/dL (32.0-36.0); Mean Corpuscular Hemoglobin 27.1 pg (27.0-31.0); Mean Corpuscular Volume 84.9 fL (78.0-98.0); Mean Platelet Volume 8.6 fL (7.4-10.4); Microcytosis SLIGHT = 6-15 cells (100X) (0-5/hpf); Platelet Count 180 thou/uL (130-400); Platelet Morphology Comment Appears Adequate; Polychromasia SLIGHT = 2-3 cells (100X) (0-2/hpf); RBC Distribution Width 19.1 % (11.5-14.5); White Blood Cell (WBC) Count 10.3 thou/uL (4.8-10.8)
[2020-10-22] MEDS: Levothyroxine Sodium 25 MCG TAB PO SCH (06:07)
[2020-10-22 06:39] LABS: Carbon Dioxide 43 mmol/L (23-31)
[2020-10-22] MEDS: Sucralfate 1 GM/10 ML UDCUP PO SCH ×4 (07:58→20:54)
[2020-10-22] MEDS: Sotalol HCl 80 MG TAB PO SCH ×2 (07:58→20:53)
[2020-10-22] MEDS: Multivitamin W/ Minerals 1 TAB PO SCH (07:59)
[2020-10-22] MEDS: Furosemide 40 MG TAB PO SCH ×2 (07:59→14:23)
[2020-10-22] MEDS: Potassium Chloride 20 MEQ TAB PO SCH ×2 (07:59→16:50)
[2020-10-22] MEDS: Cholecalciferol (Vitamin D3) 400 UNITS TAB PO SCH (07:59)
[2020-10-22] MEDS: Zinc Sulfate 220 MG CAP PO SCH (07:59)
[2020-10-22] MEDS: Metolazone 5 MG TAB PO SCH (07:59)
[2020-10-22] MEDS: Carvedilol 12.5 MG TAB PO SCH ×2 (07:59→20:53)
[2020-10-22] MEDS: Clotrimazole 1% Cream 15 GM TUBE TOP SCH ×2 (07:59→20:58)
[2020-10-22] MEDS: HumaLOG 300 UNITS/3 ML VIAL SC PRN ×2 (08:00→16:50)
[2020-10-22] MEDS: Lantus 1000 UNITS/10 ML VIAL SC SCH (20:54)
[2020-10-23] MEDS: Levothyroxine Sodium 25 MCG TAB PO SCH (05:49)
[2020-10-23] MEDS: Cholecalciferol (Vitamin D3) 400 UNITS TAB PO SCH (08:29)
[2020-10-23] MEDS: Zinc Sulfate 220 MG CAP PO SCH (08:29)
[2020-10-23] MEDS: Sucralfate 1 GM/10 ML UDCUP PO SCH ×4 (08:29→20:01)
[2020-10-23] MEDS: Clotrimazole 1% Cream 15 GM TUBE TOP SCH ×2 (08:29→20:04)
[2020-10-23] MEDS: Carvedilol 12.5 MG TAB PO SCH ×2 (08:29→20:01)
[2020-10-23] MEDS: Multivitamin W/ Minerals 1 TAB PO SCH (08:29)
[2020-10-23] MEDS: Potassium Chloride 20 MEQ TAB PO SCH ×2 (08:29→17:00)
[2020-10-23] MEDS: Metolazone 5 MG TAB PO SCH (08:29)
[2020-10-23] MEDS: Sotalol HCl 80 MG TAB PO SCH ×2 (08:29→20:01)
[2020-10-23] MEDS: Furosemide 40 MG TAB PO SCH ×2 (08:29→13:17)
[2020-10-23] MEDS: HumaLOG 300 UNITS/3 ML VIAL SC PRN ×2 (08:30→17:00)
[2020-10-23] MEDS: Lantus 1000 UNITS/10 ML VIAL SC SCH (20:01)
[2020-10-24 05:53] LABS: Anisocytosis SLIGHT = 6-15 cells (100X) (0-5/hpf); Band 1 % (5-11); Helmet Cells SLIGHT = 2-5 cells (100X) (0-1/hpf); Hemoglobin 7.8 g/dL (14.0-18.0); Hypochromia MODERATE=16-30 cells (100X) (0-5/hpf); Lymphocytes 18 % (21-51); MDiff Complete? YES; Mean Corpuscular Hemoglobin 25.6 pg (27.0-31.0); Mean Corpuscular Volume 85.1 fL (78.0-98.0); Mean Platelet Volume 7.2 fL (7.4-10.4); Monocytes 9 % (0-10); Neutrophil 72 % (42-75); Ovalocytes SLIGHT = 2-5 cells (100X) (0-1/hpf); Platelet Count 128 thou/uL (130-400); Platelet Morphology Comment Appears Adequate; RBC Distribution Width 18.9 % (11.5-14.5); Red Blood Cell (RBC) Count 3.05 mill/uL (4.70-6.10); White Blood Cell (WBC) Count 9.3 thou/uL (4.8-10.8)
[2020-10-24 05:56] LABS: Anion Gap 16 mmol/L (10-20); BUN (Urea Nitrogen) 69 mg/dL (8.4-25.7); Calc. Creatinine Clearance 47 mL/min (70-130); Calcium 9.9 mg/dL (7.8-10.44); Glucose 78 mg/dL (83-110)
[2020-10-24] MEDS: Levothyroxine Sodium 25 MCG TAB PO SCH (05:59)
[2020-10-24 06:02] LABS: Carbon Dioxide 49 mmol/L (23-31); Chloride 83 mmol/L (98-107); Sodium 145 mmol/L (136-145)
[2020-10-24] MEDS: Sucralfate 1 GM/10 ML UDCUP PO SCH ×4 (08:21→20:21)
[2020-10-24] MEDS: Carvedilol 12.5 MG TAB PO SCH ×2 (08:21→20:09)
[2020-10-24] MEDS: Zinc Sulfate 220 MG CAP PO SCH (08:22)
[2020-10-24] MEDS: Multivitamin W/ Minerals 1 TAB PO SCH (08:22)
[2020-10-24] MEDS: Sotalol HCl 80 MG TAB PO SCH ×2 (08:22→20:09)
[2020-10-24] MEDS: Furosemide 40 MG TAB PO SCH ×2 (08:22→14:42)
[2020-10-24] MEDS: Cholecalciferol (Vitamin D3) 400 UNITS TAB PO SCH (08:22)
[2020-10-24] MEDS: Potassium Chloride 20 MEQ TAB PO SCH ×3 (08:23→20:09)
[2020-10-24] MEDS: Clotrimazole 1% Cream 15 GM TUBE TOP SCH ×2 (08:23→20:09)
[2020-10-24] MEDS: HumaLOG 300 UNITS/3 ML VIAL SC PRN (17:11)
[2020-10-24] MEDS: Lantus 1000 UNITS/10 ML VIAL SC SCH (20:08)
[2020-10-25] MEDS: Levothyroxine Sodium 25 MCG TAB PO SCH (05:12)
[2020-10-25 05:41] LABS: Anion Gap 19 mmol/L (10-20); BUN (Urea Nitrogen) 74 mg/dL (8.4-25.7); Calc. Creatinine Clearance 44 mL/min (70-130); Calcium 9.8 mg/dL (7.8-10.44); Glucose 71 mg/dL (83-110)
[2020-10-25 05:49] LABS: Chloride 84 mmol/L (98-107); Potassium 3.1 mmol/L (3.5-5.1); Sodium 146 mmol/L (136-145)
[2020-10-25 05:51] LABS: Carbon Dioxide 46 mmol/L (23-31)
[2020-10-25] MEDS: Clotrimazole 1% Cream 15 GM TUBE TOP SCH ×3 (08:00→22:36)
[2020-10-25] MEDS: Cholecalciferol (Vitamin D3) 400 UNITS TAB PO SCH (08:44)
[2020-10-25] MEDS: Multivitamin W/ Minerals 1 TAB PO SCH (08:44)
[2020-10-25] MEDS: Zinc Sulfate 220 MG CAP PO SCH (08:44)
[2020-10-25] MEDS: Furosemide 40 MG TAB PO SCH ×2 (08:45→14:30)
[2020-10-25] MEDS: Potassium Chloride 20 MEQ TAB PO SCH ×3 (08:45→21:00)
[2020-10-25] MEDS: Sotalol HCl 80 MG TAB PO SCH ×2 (08:45→21:00)
[2020-10-25] MEDS: Sucralfate 1 GM/10 ML UDCUP PO SCH ×4 (08:45→21:02)
[2020-10-25] MEDS: Carvedilol 12.5 MG TAB PO SCH ×2 (08:45→21:01)
[2020-10-25] MEDS: Acetaminophen 325 MG TAB PO PRN (11:16)
[2020-10-25] MEDS: HumaLOG 300 UNITS/3 ML VIAL SC PRN (16:50)
[2020-10-25] MEDS: Lantus 1000 UNITS/10 ML VIAL SC SCH (21:02)
[2020-10-26] MEDS: Levothyroxine Sodium 25 MCG TAB PO SCH (05:53)
[2020-10-26] MEDS: Sucralfate 1 GM/10 ML UDCUP PO SCH ×4 (08:11→21:02)
[2020-10-26] MEDS: Zinc Sulfate 220 MG CAP PO SCH (08:11)
[2020-10-26] MEDS: HumaLOG 300 UNITS/3 ML VIAL SC PRN ×2 (08:11→17:03)
[2020-10-26] MEDS: Sotalol HCl 80 MG TAB PO SCH ×2 (08:11→20:58)
[2020-10-26] MEDS: Carvedilol 12.5 MG TAB PO SCH ×2 (08:12→20:59)
[2020-10-26] MEDS: Potassium Chloride 20 MEQ TAB PO SCH ×3 (08:12→21:00)
[2020-10-26] MEDS: Cholecalciferol (Vitamin D3) 400 UNITS TAB PO SCH (08:12)
[2020-10-26] MEDS: Furosemide 40 MG TAB PO SCH ×2 (08:12→14:12)
[2020-10-26] MEDS: Multivitamin W/ Minerals 1 TAB PO SCH (08:12)
[2020-10-26] MEDS: Clotrimazole 1% Cream 15 GM TUBE TOP SCH ×2 (08:12→20:59)
[2020-10-26] MEDS: Lantus 1000 UNITS/10 ML VIAL SC SCH (21:03)
[2020-10-27] MEDS: Levothyroxine Sodium 25 MCG TAB PO SCH (05:46)
[2020-10-27 06:01] LABS: #Basophils 0.1 thou/uL (0.0-0.2); #Monocytes 0.9 thou/uL (0.11-0.59); %Eosinophils 0.4 % (0.0-10.0); %Lymphocytes 17.9 % (21.0-51.0); %Monocytes 8.2 % (0.0-10.0); %Neutrophils 72.4 % (42.0-75.0); Anisocytosis SLIGHT = 6-15 cells (100X) (0-5/hpf); Hemoglobin 8.7 g/dL (14.0-18.0); Hypochromia MODERATE=16-30 cells (100X) (0-5/hpf); MDiff Complete? YES; Mean Corpuscular HGB CONC 30.6 g/dL (32.0-36.0); Mean Corpuscular Hemoglobin 25.7 pg (27.0-31.0); Mean Platelet Volume 8.9 fL (7.4-10.4); Platelet Count 247 thou/uL (130-400); Platelet Morphology Comment Appears Adequate; Poikilocytosis SLIGHT = 6-15 cells (100X) (0-5/hpf); RBC Distribution Width 19.6 % (11.5-14.5); Red Blood Cell (RBC) Count 3.37 mill/uL (4.70-6.10); White Blood Cell (WBC) Count 11.1 thou/uL (4.8-10.8)
[2020-10-27 06:05] LABS: Anion Gap 20 mmol/L (10-20); BUN (Urea Nitrogen) 96 mg/dL (8.4-25.7); Calc. Creatinine Clearance 31 mL/min (70-130); Calcium 9.8 mg/dL (7.8-10.44); Carbon Dioxide 40 mmol/L (23-31); Glucose 133 mg/dL (83-110)
[2020-10-27 06:13] LABS: Chloride 86 mmol/L (98-107); Potassium 5.2 mmol/L (3.5-5.1); Sodium 140 mmol/L (136-145)
[2020-10-27] MEDS: Cholecalciferol (Vitamin D3) 400 UNITS TAB PO SCH (08:19)
[2020-10-27] MEDS: Sotalol HCl 80 MG TAB PO SCH ×2 (08:19→20:57)
[2020-10-27] MEDS: Carvedilol 12.5 MG TAB PO SCH ×2 (08:20→20:57)
[2020-10-27] MEDS: Clotrimazole 1% Cream 15 GM TUBE TOP SCH ×2 (08:20→21:52)
[2020-10-27] MEDS: Multivitamin W/ Minerals 1 TAB PO SCH (08:20)
[2020-10-27] MEDS: Furosemide 40 MG TAB PO SCH ×2 (08:20→13:55)
[2020-10-27] MEDS: Zinc Sulfate 220 MG CAP PO SCH (08:20)
[2020-10-27] MEDS: Sucralfate 1 GM/10 ML UDCUP PO SCH ×4 (08:20→20:56)
[2020-10-27] MEDS: HumaLOG 300 UNITS/3 ML VIAL SC PRN (17:11)
[2020-10-27] MEDS: Lantus 1000 UNITS/10 ML VIAL SC SCH (20:58)
[2020-10-28] MEDS: Multivitamin W/ Minerals 1 TAB PO SCH (08:35)
[2020-10-28] MEDS: Furosemide 40 MG TAB PO SCH ×2 (08:35→14:42)
[2020-10-28] MEDS: Sotalol HCl 80 MG TAB PO SCH ×2 (08:35→20:56)
[2020-10-28] MEDS: HumaLOG 300 UNITS/3 ML VIAL SC PRN ×2 (08:35→17:27)
[2020-10-28] MEDS: Levothyroxine Sodium 25 MCG TAB PO SCH (09:59)
[2020-10-28] MEDS: Sucralfate 1 GM/10 ML UDCUP PO SCH ×4 (09:59→20:57)
[2020-10-28] MEDS: Clotrimazole 1% Cream 15 GM TUBE TOP SCH ×2 (09:59→21:00)
[2020-10-28] MEDS: Cholecalciferol (Vitamin D3) 400 UNITS TAB PO SCH (11:26)
[2020-10-28] MEDS: Carvedilol 12.5 MG TAB PO SCH ×2 (11:26→20:57)
[2020-10-28] MEDS: Zinc Sulfate 220 MG CAP PO SCH (11:26)
[2020-10-28 13:37] LABS: Hemoglobin 8.9 g/dL (14.0-18.0); Mean Corpuscular HGB CONC 30.6 g/dL (32.0-36.0); Mean Corpuscular Hemoglobin 25.6 pg (27.0-31.0); Mean Corpuscular Volume 83.7 fL (78.0-98.0); RBC Distribution Width 19.7 % (11.5-14.5); Red Blood Cell (RBC) Count 3.46 mill/uL (4.70-6.10); White Blood Cell (WBC) Count 8.4 thou/uL (4.8-10.8)
[2020-10-28 13:38] LABS: #Lymphocytes 1.6 thou/uL (1.20-3.40); #Neutrophils 5.9 thou/uL (1.40-6.50); %Basophils 0.9 % (0.0-1.0); %Eosinophils 0.9 % (0.0-10.0); %Lymphocytes 18.6 % (21.0-51.0); %Monocytes 9.8 % (0.0-10.0); %Neutrophils 69.8 % (42.0-75.0); Mean Platelet Volume 8.2 fL (7.4-10.4); Platelet Count 241 thou/uL (130-400)
[2020-10-28 13:39] LABS: #Basophils 0.1 thou/uL (0.0-0.2); #Eosinphils 0.1 thou/uL (0.0-0.7); #Monocytes 0.8 thou/uL (0.11-0.59)
[2020-10-28 13:40] LABS: Anisocytosis MODERATE=16-30 cells (100X) (0-5/hpf); Hypochromia MODERATE=16-30 cells (100X) (0-5/hpf); Microcytosis SLIGHT = 6-15 cells (100X) (0-5/hpf)
[2020-10-28 13:41] LABS: Ovalocytes SLIGHT = 2-5 cells (100X) (0-1/hpf); Target Cells SLIGHT = 2-5 cells (100X) (0-1/hpf)
[2020-10-28 13:47] LABS: Carbon Dioxide 38 mmol/L (23-31); Chloride 86 mmol/L (98-107); Potassium 4.8 mmol/L (3.5-5.1); Sodium 140 mmol/L (136-145)
[2020-10-28 13:48] LABS: Anion Gap 21 mmol/L (10-20); BUN (Urea Nitrogen) 96 mg/dL (8.4-25.7); Calc. Creatinine Clearance 28 mL/min (70-130); Glucose 223 mg/dL (83-110)
[2020-10-28 13:49] LABS: Calcium 9.7 mg/dL (7.8-10.44)
[2020-10-28] MEDS: Lantus 1000 UNITS/10 ML VIAL SC SCH (20:57)
[2020-10-29] MEDS: Levothyroxine Sodium 25 MCG TAB PO SCH (05:37)
[2020-10-29] MEDS: Sucralfate 1 GM/10 ML UDCUP PO SCH (07:58)
[2020-10-29] MEDS: Carvedilol 12.5 MG TAB PO SCH ×2 (08:21→20:35)
[2020-10-29] MEDS: Multivitamin W/ Minerals 1 TAB PO SCH (08:21)
[2020-10-29] MEDS: Cholecalciferol (Vitamin D3) 400 UNITS TAB PO SCH (08:21)
[2020-10-29] MEDS: Sotalol HCl 80 MG TAB PO SCH ×2 (08:21→20:34)
[2020-10-29] MEDS: Clotrimazole 1% Cream 15 GM TUBE TOP SCH ×2 (08:21→20:36)
[2020-10-29] MEDS: Furosemide 40 MG TAB PO SCH (08:21)
[2020-10-29] MEDS: Zinc Sulfate 220 MG CAP PO SCH (08:21)
[2020-10-29] MEDS: HumaLOG 300 UNITS/3 ML VIAL SC PRN (18:52)
[2020-10-29] MEDS: Lantus 1000 UNITS/10 ML VIAL SC SCH (20:35)
[2020-10-30] MEDS: Levothyroxine Sodium 25 MCG TAB PO SCH (05:37)
[2020-10-30] MEDS: Furosemide 40 MG TAB PO SCH (08:23)
[2020-10-30] MEDS: Cholecalciferol (Vitamin D3) 400 UNITS TAB PO SCH (08:24)
[2020-10-30] MEDS: Sotalol HCl 80 MG TAB PO SCH ×2 (08:24→20:26)
[2020-10-30] MEDS: Carvedilol 12.5 MG TAB PO SCH ×2 (08:24→20:27)
[2020-10-30] MEDS: Clotrimazole 1% Cream 15 GM TUBE TOP SCH ×2 (08:24→20:28)
[2020-10-30] MEDS: Zinc Sulfate 220 MG CAP PO SCH (08:24)
[2020-10-30] MEDS: Multivitamin W/ Minerals 1 TAB PO SCH (08:24)
[2020-10-30] MEDS: HumaLOG 300 UNITS/3 ML VIAL SC PRN (16:54)
[2020-10-30] MEDS: Lantus 1000 UNITS/10 ML VIAL SC SCH (20:28)
[2020-10-31] MEDS: Levothyroxine Sodium 25 MCG TAB PO SCH (05:28)
[2020-10-31] MEDS: HumaLOG 300 UNITS/3 ML VIAL SC PRN ×2 (08:25→16:55)
[2020-10-31] MEDS: Cholecalciferol (Vitamin D3) 400 UNITS TAB PO SCH (08:27)
[2020-10-31] MEDS: Clotrimazole 1% Cream 15 GM TUBE TOP SCH ×2 (08:27→20:18)
[2020-10-31] MEDS: Multivitamin W/ Minerals 1 TAB PO SCH (08:27)
[2020-10-31] MEDS: Furosemide 40 MG TAB PO SCH (08:27)
[2020-10-31] MEDS: Zinc Sulfate 220 MG CAP PO SCH (08:27)
[2020-10-31] MEDS: Carvedilol 12.5 MG TAB PO SCH ×2 (08:27→20:18)
[2020-10-31] MEDS: Acetaminophen 325 MG TAB PO PRN (14:24)
[2020-10-31] MEDS: Lantus 1000 UNITS/10 ML VIAL SC SCH (20:16)
[2020-10-31] MEDS: Sotalol HCl 80 MG TAB PO SCH (20:17)
[2020-11-01] MEDS: Levothyroxine Sodium 25 MCG TAB PO SCH (05:28)
[2020-11-01 06:11] LABS: Anion Gap 20 mmol/L (10-20); BUN (Urea Nitrogen) 79 mg/dL (8.4-25.7); Calc. Creatinine Clearance 36 mL/min (70-130); Calcium 9.4 mg/dL (7.8-10.44); Carbon Dioxide 34 mmol/L (23-31)
[2020-11-01 06:18] LABS: Chloride 91 mmol/L (98-107); Sodium 140 mmol/L (136-145)
[2020-11-01 06:56] LABS: Glucose 54 mg/dL (83-110)
[2020-11-01 06:57] LABS: #Basophils 0.1 thou/uL (0.0-0.2); #Eosinphils 0.1 thou/uL (0.0-0.7); #Lymphocytes 1.3 thou/uL (1.20-3.40); #Monocytes 0.8 thou/uL (0.11-0.59); #Neutrophils 7.1 thou/uL (1.40-6.50); %Basophils 0.9 % (0.0-1.0); %Eosinophils 1.2 % (0.0-10.0); %Lymphocytes 13.9 % (21.0-51.0); %Monocytes 8.3 % (0.0-10.0); %Neutrophils 75.7 % (42.0-75.0); Hemoglobin 8.5 g/dL (14.0-18.0); Mean Corpuscular HGB CONC 29.3 g/dL (32.0-36.0); Mean Corpuscular Hemoglobin 24.1 pg (27.0-31.0); Mean Corpuscular Volume 82.2 fL (78.0-98.0); Mean Platelet Volume 9.2 fL (7.4-10.4); Platelet Count 257 thou/uL (130-400); Red Blood Cell (RBC) Count 3.53 mill/uL (4.70-6.10); White Blood Cell (WBC) Count 9.4 thou/uL (4.8-10.8)
[2020-11-01 07:01] LABS: Anisocytosis SLIGHT = 6-15 cells (100X) (0-5/hpf); Hypochromia MODERATE=16-30 cells (100X) (0-5/hpf); Microcytosis SLIGHT = 6-15 cells (100X) (0-5/hpf); Poikilocytosis MODERATE=16-30 cells (100X) (0-5/hpf); Spherocytes SLIGHT = 1-5 cells (100X) (None Seen)
[2020-11-01 07:02] LABS: Ovalocytes SLIGHT = 2-5 cells (100X) (0-1/hpf); Schistocytes SLIGHT = 2-5 cells (100X) (0-1/hpf)
[2020-11-01] MEDS: Furosemide 40 MG TAB PO SCH (08:33)
[2020-11-01] MEDS: Cholecalciferol (Vitamin D3) 400 UNITS TAB PO SCH (08:34)
[2020-11-01] MEDS: Zinc Sulfate 220 MG CAP PO SCH (08:34)
[2020-11-01] MEDS: Multivitamin W/ Minerals 1 TAB PO SCH (08:34)
[2020-11-01] MEDS: Sotalol HCl 80 MG TAB PO SCH ×2 (08:34→20:59)
[2020-11-01] MEDS: Carvedilol 12.5 MG TAB PO SCH ×2 (08:35→21:03)
[2020-11-01] MEDS: Clotrimazole 1% Cream 15 GM TUBE TOP SCH ×2 (08:35→21:03)
[2020-11-01] MEDS: Ondansetron ODT 4 MG TAB PO PRN (18:11)
[2020-11-01] MEDS: Lantus 1000 UNITS/10 ML VIAL SC SCH (21:02)
[2020-11-02] MEDS: Levothyroxine Sodium 25 MCG TAB PO SCH (05:32)
[2020-11-02] MEDS: Cholecalciferol (Vitamin D3) 400 UNITS TAB PO SCH (09:02)
[2020-11-02] MEDS: Carvedilol 12.5 MG TAB PO SCH ×2 (09:02→20:44)
[2020-11-02] MEDS: Clotrimazole 1% Cream 15 GM TUBE TOP SCH ×2 (09:02→20:47)
[2020-11-02] MEDS: Sotalol HCl 80 MG TAB PO SCH ×2 (09:03→20:44)
[2020-11-02] MEDS: Multivitamin W/ Minerals 1 TAB PO SCH (09:03)
[2020-11-02] MEDS: Furosemide 40 MG TAB PO SCH (09:04)
[2020-11-02] MEDS: Zinc Sulfate 220 MG CAP PO SCH (09:04)
[2020-11-02] MEDS: HumaLOG 300 UNITS/3 ML VIAL SC PRN (17:15)
[2020-11-02] MEDS: Lantus 1000 UNITS/10 ML VIAL SC SCH (20:46)
[2020-11-03] MEDS: Levothyroxine Sodium 25 MCG TAB PO SCH (05:48)
[2020-11-03] MEDS: Zinc Sulfate 220 MG CAP PO SCH (09:25)
[2020-11-03] MEDS: Furosemide 40 MG TAB PO SCH (09:28)
[2020-11-03] MEDS: Carvedilol 12.5 MG TAB PO SCH ×2 (09:28→20:08)
[2020-11-03] MEDS: Cholecalciferol (Vitamin D3) 400 UNITS TAB PO SCH (09:28)
[2020-11-03] MEDS: Sotalol HCl 80 MG TAB PO SCH ×2 (09:28→20:08)
[2020-11-03] MEDS: Multivitamin W/ Minerals 1 TAB PO SCH (09:28)
[2020-11-03] MEDS: Clotrimazole 1% Cream 15 GM TUBE TOP SCH ×2 (09:29→20:09)
[2020-11-03] MEDS: HumaLOG 300 UNITS/3 ML VIAL SC PRN ×2 (09:34→17:20)
[2020-11-03] MEDS: Lantus 1000 UNITS/10 ML VIAL SC SCH (20:09)
[2020-11-04] MEDS: Levothyroxine Sodium 25 MCG TAB PO SCH (05:37)
[2020-11-04] MEDS: Clotrimazole 1% Cream 15 GM TUBE TOP SCH ×2 (08:33→20:29)
[2020-11-04] MEDS: Carvedilol 12.5 MG TAB PO SCH ×2 (08:33→20:28)
[2020-11-04] MEDS: Furosemide 40 MG TAB PO SCH (08:33)
[2020-11-04] MEDS: Sotalol HCl 80 MG TAB PO SCH ×2 (08:33→20:27)
[2020-11-04] MEDS: Zinc Sulfate 220 MG CAP PO SCH (08:33)
[2020-11-04] MEDS: Multivitamin W/ Minerals 1 TAB PO SCH (08:33)
[2020-11-04] MEDS: Cholecalciferol (Vitamin D3) 400 UNITS TAB PO SCH (08:34)
[2020-11-04] MEDS: Lantus 1000 UNITS/10 ML VIAL SC SCH (21:12)
[2020-11-05 05:42] LABS: Anion Gap 17 mmol/L (10-20); BUN (Urea Nitrogen) 93 mg/dL (8.4-25.7); Calc. Creatinine Clearance 30 mL/min (70-130); Calcium 8.9 mg/dL (7.8-10.44); Carbon Dioxide 35 mmol/L (23-31); Chloride 91 mmol/L (98-107); Glucose 64 mg/dL (83-110); Potassium 4.9 mmol/L (3.5-5.1); Sodium 138 mmol/L (136-145)
[2020-11-05 05:44] LABS: #Basophils 0.1 thou/uL (0.0-0.2); #Eosinphils 0.1 thou/uL (0.0-0.7); #Monocytes 1.2 thou/uL (0.11-0.59); #Neutrophils 11.5 thou/uL (1.40-6.50); %Basophils 0.5 % (0.0-1.0); %Eosinophils 0.6 % (0.0-10.0); %Lymphocytes 7.4 % (21.0-51.0); %Monocytes 8.9 % (0.0-10.0); %Neutrophils 82.7 % (42.0-75.0); Hemoglobin 8.4 g/dL (14.0-18.0); Hypochromia SLIGHT = 6-15 cells (100X) (0-5/hpf); MDiff Complete? YES; Mean Corpuscular HGB CONC 29.7 g/dL (32.0-36.0); Mean Corpuscular Hemoglobin 24.1 pg (27.0-31.0); Mean Corpuscular Volume 81.1 fL (78.0-98.0); Mean Platelet Volume 8.3 fL (7.4-10.4); Microcytosis SLIGHT = 6-15 cells (100X) (0-5/hpf); Platelet Count 264 thou/uL (130-400); Platelet Morphology Comment Appears Adequate; Polychromasia SLIGHT = 2-3 cells (100X) (0-2/hpf); RBC Distribution Width 20.4 % (11.5-14.5); Red Blood Cell (RBC) Count 3.51 mill/uL (4.70-6.10); White Blood Cell (WBC) Count 13.9 thou/uL (4.8-10.8)
[2020-11-05] MEDS: Levothyroxine Sodium 25 MCG TAB PO SCH (06:09)
[2020-11-05] MEDS: Carvedilol 12.5 MG TAB PO SCH ×2 (08:03→21:10)
[2020-11-05] MEDS: Furosemide 40 MG TAB PO SCH (08:04)
[2020-11-05] MEDS: Zinc Sulfate 220 MG CAP PO SCH (08:04)
[2020-11-05] MEDS: Multivitamin W/ Minerals 1 TAB PO SCH (08:04)
[2020-11-05] MEDS: Cholecalciferol (Vitamin D3) 400 UNITS TAB PO SCH (08:04)
[2020-11-05] MEDS: Acetaminophen 325 MG TAB PO PRN (08:04)
[2020-11-05] MEDS: Sotalol HCl 80 MG TAB PO SCH ×2 (08:04→21:10)
[2020-11-05] MEDS: Clotrimazole 1% Cream 15 GM TUBE TOP SCH ×2 (08:11→21:11)
[2020-11-05] MEDS: Furosemide 20 MG TAB PO SCH (09:11)
[2020-11-05] MEDS ORDERED: Polyethylene Glycol 3350 17 GM Packet PO SCH (16:00)
[2020-11-05] MEDS: HumaLOG 300 UNITS/3 ML VIAL SC PRN (18:22)
[2020-11-05] MEDS: Lantus 1000 UNITS/10 ML VIAL SC SCH (21:11)
[2020-11-06] MEDS: Levothyroxine Sodium 25 MCG TAB PO SCH (05:51)
[2020-11-06] MEDS: Multivitamin W/ Minerals 1 TAB PO SCH (08:08)
[2020-11-06] MEDS: Furosemide 20 MG TAB PO SCH (08:08)
[2020-11-06] MEDS: Sotalol HCl 80 MG TAB PO SCH ×2 (08:08→21:33)
[2020-11-06] MEDS: Carvedilol 12.5 MG TAB PO SCH ×2 (08:08→21:32)
[2020-11-06] MEDS: Cholecalciferol (Vitamin D3) 400 UNITS TAB PO SCH (08:08)
[2020-11-06] MEDS: Polyethylene Glycol 3350 17 GM Packet PO SCH (08:08)
[2020-11-06] MEDS: Zinc Sulfate 220 MG CAP PO SCH (08:08)
[2020-11-06] MEDS: Clotrimazole 1% Cream 15 GM TUBE TOP SCH ×2 (08:10→21:32)
[2020-11-06] MEDS: HumaLOG 300 UNITS/3 ML VIAL SC PRN (17:10)
[2020-11-06] MEDS: Lantus 1000 UNITS/10 ML VIAL SC SCH (21:29)
[2020-11-07] MEDS: Levothyroxine Sodium 25 MCG TAB PO SCH (05:38)
[2020-11-07] MEDS: Cholecalciferol (Vitamin D3) 400 UNITS TAB PO SCH (08:32)
[2020-11-07] MEDS: Carvedilol 12.5 MG TAB PO SCH ×2 (08:32→21:01)
[2020-11-07] MEDS: Sotalol HCl 80 MG TAB PO SCH ×2 (08:32→21:01)
[2020-11-07] MEDS: Clotrimazole 1% Cream 15 GM TUBE TOP SCH ×2 (08:33→21:05)
[2020-11-07] MEDS: Zinc Sulfate 220 MG CAP PO SCH (08:33)
[2020-11-07] MEDS: Multivitamin W/ Minerals 1 TAB PO SCH (08:33)
[2020-11-07] MEDS: Polyethylene Glycol 3350 17 GM Packet PO SCH (08:33)
[2020-11-07] MEDS: Furosemide 40 MG TAB PO SCH (08:35)
[2020-11-07] MEDS: HumaLOG 300 UNITS/3 ML VIAL SC PRN (17:11)
[2020-11-07] MEDS: Lantus 1000 UNITS/10 ML VIAL SC SCH (21:03)
[2020-11-08 05:44] LABS: Anion Gap 17 mmol/L (10-20); BUN (Urea Nitrogen) 72 mg/dL (8.4-25.7); Calc. Creatinine Clearance 40 mL/min (70-130); Calcium 8.9 mg/dL (7.8-10.44); Carbon Dioxide 34 mmol/L (23-31); Chloride 91 mmol/L (98-107); Glucose 103 mg/dL (83-110); Potassium 4.8 mmol/L (3.5-5.1); Sodium 137 mmol/L (136-145)
[2020-11-08] MEDS: Levothyroxine Sodium 25 MCG TAB PO SCH (05:45)
[2020-11-08] MEDS: Zinc Sulfate 220 MG CAP PO SCH (08:58)
[2020-11-08] MEDS: Cholecalciferol (Vitamin D3) 400 UNITS TAB PO SCH (08:58)
[2020-11-08] MEDS: Multivitamin W/ Minerals 1 TAB PO SCH (08:58)
[2020-11-08] MEDS: Sotalol HCl 80 MG TAB PO SCH ×2 (08:58→21:47)
[2020-11-08] MEDS: Polyethylene Glycol 3350 17 GM Packet PO SCH (08:58)
[2020-11-08] MEDS: Clotrimazole 1% Cream 15 GM TUBE TOP SCH ×2 (08:59→21:46)
[2020-11-08] MEDS: Carvedilol 12.5 MG TAB PO SCH ×2 (08:59→21:45)
[2020-11-08] MEDS: Furosemide 40 MG TAB PO SCH (08:59)
[2020-11-08] MEDS: HumaLOG 300 UNITS/3 ML VIAL SC PRN (16:54)
[2020-11-08] MEDS: Lantus 1000 UNITS/10 ML VIAL SC SCH (21:49)
[2020-11-09] MEDS: Acetaminophen 325 MG TAB PO PRN (02:01)
[2020-11-09] MEDS: Levothyroxine Sodium 25 MCG TAB PO SCH (05:50)
[2020-11-09 05:52] LABS: #Basophils 0.1 thou/uL (0.0-0.2); #Eosinphils 0.1 thou/uL (0.0-0.7); #Lymphocytes 1.5 thou/uL (1.20-3.40); #Monocytes 0.5 thou/uL (0.11-0.59); #Neutrophils 5.6 thou/uL (1.40-6.50); %Basophils 0.9 % (0.0-1.0); %Eosinophils 1.4 % (0.0-10.0); %Lymphocytes 19.2 % (21.0-51.0); %Monocytes 6.6 % (0.0-10.0); %Neutrophils 71.9 % (42.0-75.0); Anisocytosis SLIGHT = 6-15 cells (100X) (0-5/hpf); Hypochromia MARKED = >30 cells (100X) (0-5/hpf); MDiff Complete? YES; Mean Corpuscular HGB CONC 29.1 g/dL (32.0-36.0); Mean Corpuscular Hemoglobin 23.4 pg (27.0-31.0); Mean Corpuscular Volume 80.4 fL (78.0-98.0); Platelet Count 218 thou/uL (130-400); Platelet Morphology Comment Appears Adequate; RBC Distribution Width 20.7 % (11.5-14.5); Red Blood Cell (RBC) Count 3.44 mill/uL (4.70-6.10); White Blood Cell (WBC) Count 7.8 thou/uL (4.8-10.8)
[2020-11-09] MEDS: Polyethylene Glycol 3350 17 GM Packet PO SCH (08:41)
[2020-11-09] MEDS: Sotalol HCl 80 MG TAB PO SCH ×2 (08:41→21:19)
[2020-11-09] MEDS: Zinc Sulfate 220 MG CAP PO SCH (08:42)
[2020-11-09] MEDS: Furosemide 40 MG TAB PO SCH (08:42)
[2020-11-09] MEDS: Carvedilol 12.5 MG TAB PO SCH ×2 (08:42→21:19)
[2020-11-09] MEDS: Cholecalciferol (Vitamin D3) 400 UNITS TAB PO SCH (08:42)
[2020-11-09] MEDS: Multivitamin W/ Minerals 1 TAB PO SCH (08:42)
[2020-11-09] MEDS: Clotrimazole 1% Cream 15 GM TUBE TOP SCH ×2 (08:42→21:27)
[2020-11-09] MEDS: HumaLOG 300 UNITS/3 ML VIAL SC PRN (17:08)
[2020-11-09] MEDS: Lantus 1000 UNITS/10 ML VIAL SC SCH (21:21)
[2020-11-09] MEDS ORDERED: Sucralfate 1 GM TAB PO SCH (22:15)
[2020-11-10] MEDS: Levothyroxine Sodium 25 MCG TAB PO SCH (05:32)
[2020-11-10 05:49] LABS: #Basophils 0.1 thou/uL (0.0-0.2); #Eosinphils 0.1 thou/uL (0.0-0.7); #Lymphocytes 1.2 thou/uL (1.20-3.40); #Monocytes 0.5 thou/uL (0.11-0.59); %Basophils 0.9 % (0.0-1.0); %Lymphocytes 13.4 % (21.0-51.0); %Monocytes 6.1 % (0.0-10.0); %Neutrophils 78.6 % (42.0-75.0); Anisocytosis SLIGHT = 6-15 cells (100X) (0-5/hpf); Hemoglobin 8.3 g/dL (14.0-18.0); Hypochromia MODERATE=16-30 cells (100X) (0-5/hpf); MDiff Complete? YES; Mean Corpuscular HGB CONC 30.5 g/dL (32.0-36.0); Mean Corpuscular Hemoglobin 24.2 pg (27.0-31.0); Mean Corpuscular Volume 79.3 fL (78.0-98.0); Mean Platelet Volume 8.3 fL (7.4-10.4); Platelet Count 206 thou/uL (130-400); Platelet Morphology Comment Appears Adequate; RBC Distribution Width 20.8 % (11.5-14.5); Red Blood Cell (RBC) Count 3.43 mill/uL (4.70-6.10); White Blood Cell (WBC) Count 8.9 thou/uL (4.8-10.8)
[2020-11-10] MEDS: Furosemide 40 MG TAB PO SCH (08:42)
[2020-11-10] MEDS: Cholecalciferol (Vitamin D3) 400 UNITS TAB PO SCH (08:42)
[2020-11-10] MEDS: Sotalol HCl 80 MG TAB PO SCH ×2 (08:42→21:07)
[2020-11-10] MEDS: Multivitamin W/ Minerals 1 TAB PO SCH (08:42)
[2020-11-10] MEDS: Sucralfate 1 GM TAB PO SCH ×4 (08:42→21:07)
[2020-11-10] MEDS: Zinc Sulfate 220 MG CAP PO SCH (08:42)
[2020-11-10] MEDS: Carvedilol 12.5 MG TAB PO SCH ×2 (08:43→21:07)
[2020-11-10] MEDS: Clotrimazole 1% Cream 15 GM TUBE TOP SCH ×2 (08:43→21:11)
[2020-11-10] MEDS: Polyethylene Glycol 3350 17 GM Packet PO SCH (08:44)
[2020-11-10] MEDS: Lantus 1000 UNITS/10 ML VIAL SC SCH (21:11)
[2020-11-11] MEDS: Levothyroxine Sodium 25 MCG TAB PO SCH (05:53)
[2020-11-11] MEDS: Polyethylene Glycol 3350 17 GM Packet PO SCH (09:02)
[2020-11-11] MEDS: Zinc Sulfate 220 MG CAP PO SCH (09:02)
[2020-11-11] MEDS: Furosemide 40 MG TAB PO SCH (09:02)
[2020-11-11] MEDS: Cholecalciferol (Vitamin D3) 400 UNITS TAB PO SCH (09:02)
[2020-11-11] MEDS: Multivitamin W/ Minerals 1 TAB PO SCH (09:02)
[2020-11-11] MEDS: Sotalol HCl 80 MG TAB PO SCH ×2 (09:03→21:56)
[2020-11-11] MEDS: Carvedilol 12.5 MG TAB PO SCH ×2 (09:04→21:55)
[2020-11-11] MEDS: Clotrimazole 1% Cream 15 GM TUBE TOP SCH ×2 (09:04→21:57)
[2020-11-11] MEDS: Sucralfate 1 GM TAB PO SCH ×4 (09:06→21:55)
[2020-11-11] MEDS: HumaLOG 300 UNITS/3 ML VIAL SC PRN (17:05)
[2020-11-11] MEDS: Lantus 1000 UNITS/10 ML VIAL SC SCH (21:54)
[2020-11-12] MEDS: Levothyroxine Sodium 25 MCG TAB PO SCH (06:02)
[2020-11-12] MEDS: Cholecalciferol (Vitamin D3) 400 UNITS TAB PO SCH (09:16)
[2020-11-12] MEDS: Furosemide 40 MG TAB PO SCH (09:16)
[2020-11-12] MEDS: Polyethylene Glycol 3350 17 GM Packet PO SCH (09:16)
[2020-11-12] MEDS: Sucralfate 1 GM TAB PO SCH ×4 (09:16→22:27)
[2020-11-12] MEDS: Zinc Sulfate 220 MG CAP PO SCH (09:16)
[2020-11-12] MEDS: Sotalol HCl 80 MG TAB PO SCH ×2 (09:16→22:26)
[2020-11-12] MEDS: Carvedilol 12.5 MG TAB PO SCH ×2 (09:16→22:27)
[2020-11-12] MEDS: Multivitamin W/ Minerals 1 TAB PO SCH (09:16)
[2020-11-12] MEDS: Clotrimazole 1% Cream 15 GM TUBE TOP SCH ×2 (09:19→22:29)
[2020-11-12] MEDS: Acetaminophen 325 MG TAB PO PRN (09:22)
[2020-11-12] MEDS: HumaLOG 300 UNITS/3 ML VIAL SC PRN (17:28)
[2020-11-12] MEDS: Lantus 1000 UNITS/10 ML VIAL SC SCH (22:28)
[2020-11-13] MEDS: Levothyroxine Sodium 25 MCG TAB PO SCH (05:50)
[2020-11-13 06:04] LABS: Anion Gap 14 mmol/L (10-20); BUN (Urea Nitrogen) 57 mg/dL (8.4-25.7); Calc. Creatinine Clearance 47 mL/min (70-130); Calcium 8.7 mg/dL (7.8-10.44); Carbon Dioxide 33 mmol/L (23-31); Chloride 95 mmol/L (98-107); Glucose 61 mg/dL (83-110); Potassium 4.5 mmol/L (3.5-5.1); Sodium 137 mmol/L (136-145)
[2020-11-13 06:41] LABS: #Eosinphils 0.1 thou/uL (0.0-0.7); #Lymphocytes 1.3 thou/uL (1.20-3.40); #Monocytes 0.6 thou/uL (0.11-0.59); #Neutrophils 5.2 thou/uL (1.40-6.50); %Basophils 0.5 % (0.0-1.0); %Eosinophils 1.9 % (0.0-10.0); %Lymphocytes 17.3 % (21.0-51.0); %Monocytes 8.2 % (0.0-10.0); %Neutrophils 72.1 % (42.0-75.0); Hemoglobin 8.3 g/dL (14.0-18.0); Mean Corpuscular HGB CONC 29.3 g/dL (32.0-36.0); Mean Corpuscular Hemoglobin 23.3 pg (27.0-31.0); Mean Corpuscular Volume 79.4 fL (78.0-98.0); Mean Platelet Volume 7.9 fL (7.4-10.4); Platelet Count 165 thou/uL (130-400); RBC Distribution Width 20.7 % (11.5-14.5); Red Blood Cell (RBC) Count 3.57 mill/uL (4.70-6.10); White Blood Cell (WBC) Count 7.3 thou/uL (4.8-10.8)
[2020-11-13 06:50] LABS: Anisocytosis SLIGHT = 6-15 cells (100X) (0-5/hpf); Hypochromia MODERATE=16-30 cells (100X) (0-5/hpf)
[2020-11-13 06:51] LABS: Platelet Morphology Comment Appears Adequate
[2020-11-13] MEDS: Sotalol HCl 80 MG TAB PO SCH ×2 (08:39→21:38)
[2020-11-13] MEDS: Cholecalciferol (Vitamin D3) 400 UNITS TAB PO SCH (08:40)
[2020-11-13] MEDS: Zinc Sulfate 220 MG CAP PO SCH (08:40)
[2020-11-13] MEDS: Multivitamin W/ Minerals 1 TAB PO SCH (08:40)
[2020-11-13] MEDS: Carvedilol 12.5 MG TAB PO SCH ×2 (08:40→21:37)
[2020-11-13] MEDS: Sucralfate 1 GM TAB PO SCH ×4 (08:40→21:37)
[2020-11-13] MEDS: Acetaminophen 325 MG TAB PO PRN (08:40)
[2020-11-13] MEDS: Furosemide 40 MG TAB PO SCH (08:40)
[2020-11-13] MEDS: Clotrimazole 1% Cream 15 GM TUBE TOP SCH ×2 (08:42→21:39)
[2020-11-13] MEDS: Polyethylene Glycol 3350 17 GM Packet PO SCH (08:42)
[2020-11-13] MEDS: HumaLOG 300 UNITS/3 ML VIAL SC PRN (17:07)
[2020-11-13] MEDS: Lantus 1000 UNITS/10 ML VIAL SC SCH (21:38)
[2020-11-14] MEDS: Acetaminophen 325 MG TAB PO PRN (03:50)
[2020-11-14] MEDS: Levothyroxine Sodium 25 MCG TAB PO SCH (06:00)
[2020-11-14] MEDS: Sucralfate 1 GM TAB PO SCH ×4 (09:00→20:53)
[2020-11-14] MEDS: Furosemide 40 MG TAB PO SCH (09:00)
[2020-11-14] MEDS: Zinc Sulfate 220 MG CAP PO SCH (09:00)
[2020-11-14] MEDS: Cholecalciferol (Vitamin D3) 400 UNITS TAB PO SCH (09:00)
[2020-11-14] MEDS: Multivitamin W/ Minerals 1 TAB PO SCH (09:00)
[2020-11-14] MEDS: Carvedilol 12.5 MG TAB PO SCH ×3 (09:01→20:53)
[2020-11-14] MEDS: Sotalol HCl 80 MG TAB PO SCH ×2 (09:01→20:53)
[2020-11-14] MEDS: Polyethylene Glycol 3350 17 GM Packet PO SCH (09:02)
[2020-11-14] MEDS: Clotrimazole 1% Cream 15 GM TUBE TOP SCH ×2 (09:03→20:55)
[2020-11-14] MEDS: Lantus 1000 UNITS/10 ML VIAL SC SCH (21:05)
[2020-11-15] MEDS: Levothyroxine Sodium 25 MCG TAB PO SCH (05:25)
[2020-11-15] MEDS: Zinc Sulfate 220 MG CAP PO SCH (08:59)
[2020-11-15] MEDS: Multivitamin W/ Minerals 1 TAB PO SCH (08:59)
[2020-11-15] MEDS: Cholecalciferol (Vitamin D3) 400 UNITS TAB PO SCH (08:59)
[2020-11-15] MEDS: Furosemide 40 MG TAB PO SCH (08:59)
[2020-11-15] MEDS: Sotalol HCl 80 MG TAB PO SCH ×2 (08:59→21:21)
[2020-11-15] MEDS: Sucralfate 1 GM TAB PO SCH (08:59)
[2020-11-15] MEDS: Polyethylene Glycol 3350 17 GM Packet PO SCH (09:00)
[2020-11-15] MEDS: Clotrimazole 1% Cream 15 GM TUBE TOP SCH ×2 (09:00→21:22)
[2020-11-15] MEDS: Carvedilol 12.5 MG TAB PO SCH ×2 (09:00→21:20)
[2020-11-15] MEDS ORDERED: Furosemide 40 MG/4 ML VIAL SLOW IVP SCH (10:30)
[2020-11-15 10:33] LABS: #Lymphocytes 0.8 thou/uL (1.20-3.40); #Monocytes 0.5 thou/uL (0.11-0.59); #Neutrophils 6.4 thou/uL (1.40-6.50); %Basophils 0.3 % (0.0-1.0); %Eosinophils 0.2 % (0.0-10.0); %Lymphocytes 10.3 % (21.0-51.0); %Monocytes 6.3 % (0.0-10.0); %Neutrophils 82.9 % (42.0-75.0); Anisocytosis MODERATE=16-30 cells (100X) (0-5/hpf); Hemoglobin 8.1 g/dL (14.0-18.0); Hypochromia MODERATE=16-30 cells (100X) (0-5/hpf); MDiff Complete? YES; Mean Corpuscular HGB CONC 30.7 g/dL (32.0-36.0); Mean Corpuscular Hemoglobin 23.9 pg (27.0-31.0); Mean Corpuscular Volume 77.7 fL (78.0-98.0); Mean Platelet Volume 8.9 fL (7.4-10.4); Microcytosis SLIGHT = 6-15 cells (100X) (0-5/hpf); Platelet Count 127 thou/uL (130-400); Platelet Morphology Comment Appears Decreased; Red Blood Cell (RBC) Count 3.38 mill/uL (4.70-6.10); Target Cells SLIGHT = 2-5 cells (100X) (0-1/hpf); White Blood Cell (WBC) Count 7.7 thou/uL (4.8-10.8)
[2020-11-15 11:47] LABS: ALT (SGPT) 23 U/L (8-55); AST (SGOT) 26 U/L (5-34); Albumin 3.3 g/dL (3.4-4.8); Alkaline Phosphatase 181 U/L (40-110); Anion Gap 15 mmol/L (10-20); BUN (Urea Nitrogen) 70 mg/dL (8.4-25.7); Bilirubin, Total 0.9 mg/dL (0.2-1.2); Calc. Creatinine Clearance 33 mL/min (70-130); Calcium 9.2 mg/dL (7.8-10.44); Carbon Dioxide 33 mmol/L (23-31); Chloride 91 mmol/L (98-107); Globulin 2.9 g/dL (2.4-3.5); Glucose 78 mg/dL (83-110); Potassium 5.6 mmol/L (3.5-5.1); Protein, Total 6.2 g/dL (5.8-8.1)
[2020-11-15 13:34] LABS: Sodium 133 mmol/L (136-145)
[2020-11-15] MEDS: Furosemide 40 MG/4 ML VIAL SLOW IVP SCH (14:51)
[2020-11-15] MEDS ORDERED: Lantus 1000 UNITS/10 ML VIAL SC SCH (21:00)
[2020-11-16] MEDS: Furosemide 40 MG/4 ML VIAL SLOW IVP SCH ×2 (05:37→14:11)
[2020-11-16] MEDS: Levothyroxine Sodium 25 MCG TAB PO SCH (06:14)
[2020-11-16] MEDS ORDERED: Morphine 2 MG/ML VIAL SLOW IVP PRN (06:17)
[2020-11-16 07:00] LABS: Anion Gap 15 mmol/L (10-20); BUN (Urea Nitrogen) 71 mg/dL (8.4-25.7); Calc. Creatinine Clearance 34 mL/min (70-130); Calcium 8.9 mg/dL (7.8-10.44); Carbon Dioxide 31 mmol/L (23-31); Chloride 95 mmol/L (98-107); Glucose 114 mg/dL (83-110); Potassium 4.6 mmol/L (3.5-5.1); Sodium 136 mmol/L (136-145)
[2020-11-16] MEDS: Carvedilol 12.5 MG TAB PO SCH ×2 (10:01→21:20)
[2020-11-16] MEDS: Sotalol HCl 80 MG TAB PO SCH ×2 (10:01→21:20)
[2020-11-16] MEDS: Polyethylene Glycol 3350 17 GM Packet PO SCH (10:02)
[2020-11-16] MEDS: Clotrimazole 1% Cream 15 GM TUBE TOP SCH ×2 (10:03→21:20)
[2020-11-16] MEDS: Acetaminophen 325 MG TAB PO PRN (17:37)
[2020-11-17 05:49] LABS: Anion Gap 15 mmol/L (10-20); BUN (Urea Nitrogen) 67 mg/dL (8.4-25.7); Calc. Creatinine Clearance 31 mL/min (70-130); Calcium 8.6 mg/dL (7.8-10.44); Carbon Dioxide 30 mmol/L (23-31); Chloride 96 mmol/L (98-107); Glucose 70 mg/dL (83-110); Potassium 4.9 mmol/L (3.5-5.1); Sodium 136 mmol/L (136-145)
[2020-11-17] MEDS: Furosemide 40 MG/4 ML VIAL SLOW IVP SCH ×2 (06:11→15:13)
[2020-11-17] MEDS: Levothyroxine Sodium 25 MCG TAB PO SCH (06:32)
[2020-11-17] MEDS: Carvedilol 12.5 MG TAB PO SCH ×2 (08:16→19:59)
[2020-11-17] MEDS: Sotalol HCl 80 MG TAB PO SCH ×2 (08:16→20:04)
[2020-11-17] MEDS: Acetaminophen 325 MG TAB PO PRN (08:17)
[2020-11-17] MEDS: Clotrimazole 1% Cream 15 GM TUBE TOP SCH ×2 (08:28→19:59)
[2020-11-17] MEDS: Polyethylene Glycol 3350 17 GM Packet PO SCH (08:29)
[2020-11-17 09:39] LABS: Bilirubin Negative (Negative); Blood, Urine Large (Negative); Glucose, Urine (Dipstick) Negative (Negative); Ketone, Urine Negative (Negative); Leukocyte Small (Negative); Nitrite Negative (Negative); Protein, Urine (Dipstick) 30 mg/dL (Neg-Trace); Specific Gravity, Urine 1.015 (1.005-1.030); Urobilinogen 0.2 mg/dL (Less than 2)
[2020-11-17 09:41] LABS: Bacteria/HPF 4+ HPF (None Seen); Clarity Hazy (Clear); RBC/HPF Greater than 50 HPF (0-3)
[2020-11-18] MEDS: Furosemide 40 MG/4 ML VIAL SLOW IVP SCH ×2 (05:13→13:59)
[2020-11-18] MEDS: Levothyroxine Sodium 25 MCG TAB PO SCH (05:13)
[2020-11-18 06:02] LABS: Anion Gap 13 mmol/L (10-20); BUN (Urea Nitrogen) 77 mg/dL (8.4-25.7); Calc. Creatinine Clearance 28 mL/min (70-130); Calcium 8.5 mg/dL (7.8-10.44); Carbon Dioxide 34 mmol/L (23-31); Chloride 93 mmol/L (98-107); Glucose 276 mg/dL (83-110); Potassium 5.2 mmol/L (3.5-5.1); Sodium 135 mmol/L (136-145)
[2020-11-18 06:13] LABS: #Lymphocytes 0.8 thou/uL (1.20-3.40); #Monocytes 0.5 thou/uL (0.11-0.59); #Neutrophils 4.9 thou/uL (1.40-6.50); %Basophils 0.4 % (0.0-1.0); %Eosinophils 0.7 % (0.0-10.0); %Lymphocytes 13.3 % (21.0-51.0); %Monocytes 8.5 % (0.0-10.0); Hemoglobin 7.9 g/dL (14.0-18.0); Hypochromia SLIGHT = 6-15 cells (100X) (0-5/hpf); MDiff Complete? YES; Mean Corpuscular HGB CONC 28.9 g/dL (32.0-36.0); Mean Corpuscular Hemoglobin 22.6 pg (27.0-31.0); Mean Corpuscular Volume 78.2 fL (78.0-98.0); Mean Platelet Volume 8.8 fL (7.4-10.4); Platelet Count 88 thou/uL (130-400); Platelet Morphology Comment Appears Decreased; Polychromasia SLIGHT = 2-3 cells (100X) (0-2/hpf); RBC Distribution Width 21.5 % (11.5-14.5); Red Blood Cell (RBC) Count 3.51 mill/uL (4.70-6.10); White Blood Cell (WBC) Count 6.3 thou/uL (4.8-10.8)
[2020-11-18] MEDS ORDERED: Carvedilol 12.5 MG TAB PO SCH (08:05)
[2020-11-18] MEDS: Sotalol HCl 80 MG TAB PO SCH ×2 (08:31→21:02)
[2020-11-18] MEDS: HumaLOG 300 UNITS/3 ML VIAL SC PRN ×3 (08:32→17:14)
[2020-11-18] MEDS: Carvedilol 6.25 MG TAB PO SCH ×3 (08:45→21:03)
[2020-11-18] MEDS: Polyethylene Glycol 3350 17 GM Packet PO SCH (08:48)
[2020-11-18] MEDS: Clotrimazole 1% Cream 15 GM TUBE TOP SCH ×2 (08:48→21:11)
[2020-11-19 06:16] LABS: Anion Gap 16 mmol/L (10-20); BUN (Urea Nitrogen) 91 mg/dL (8.4-25.7); Calc. Creatinine Clearance 28 mL/min (70-130); Calcium 8.5 mg/dL (7.8-10.44); Carbon Dioxide 32 mmol/L (23-31); Chloride 94 mmol/L (98-107); Glucose 263 mg/dL (83-110); Potassium 5.2 mmol/L (3.5-5.1); Sodium 137 mmol/L (136-145)
[2020-11-19] MEDS: Furosemide 40 MG/4 ML VIAL SLOW IVP SCH (06:23)
[2020-11-19] MEDS: Levothyroxine Sodium 25 MCG TAB PO SCH (06:23)
[2020-11-19] MEDS ORDERED: Furosemide 20 MG TAB PO SCH (09:00)
[2020-11-19] MEDS: Carvedilol 6.25 MG TAB PO SCH ×2 (09:40→20:41)
[2020-11-19] MEDS: Furosemide 40 MG TAB PO SCH ×2 (09:40→14:26)
[2020-11-19] MEDS: Polyethylene Glycol 3350 17 GM Packet PO SCH (09:40)
[2020-11-19] MEDS: Clotrimazole 1% Cream 15 GM TUBE TOP SCH ×2 (09:44→20:51)
[2020-11-19] MEDS: Sotalol HCl 80 MG TAB PO SCH ×2 (09:44→20:41)
[2020-11-19] MEDS: HumaLOG 300 UNITS/3 ML VIAL SC PRN ×4 (09:45→17:43)
[2020-11-19] MEDS ORDERED: HumaLOG 300 UNITS/3 ML VIAL SC SCH (22:00)
[2020-11-20] MEDS: Levothyroxine Sodium 25 MCG TAB PO SCH (05:33)
[2020-11-20] MEDS: Carvedilol 6.25 MG TAB PO SCH ×2 (08:12→21:26)
[2020-11-20] MEDS: Sotalol HCl 80 MG TAB PO SCH ×2 (08:12→21:30)
[2020-11-20] MEDS: Polyethylene Glycol 3350 17 GM Packet PO SCH (08:13)
[2020-11-20] MEDS: Furosemide 40 MG TAB PO SCH ×2 (08:13→13:53)
[2020-11-20] MEDS: Clotrimazole 1% Cream 15 GM TUBE TOP SCH ×2 (08:13→21:27)
[2020-11-20] MEDS: HumaLOG 300 UNITS/3 ML VIAL SC PRN ×3 (08:15→17:50)
[2020-11-21] MEDS: Levothyroxine Sodium 25 MCG TAB PO SCH (05:46)
[2020-11-21 06:18] LABS: Anion Gap 16 mmol/L (10-20); BUN (Urea Nitrogen) 91 mg/dL (8.4-25.7); Calc. Creatinine Clearance 33 mL/min (70-130); Calcium 8.7 mg/dL (7.8-10.44); Carbon Dioxide 30 mmol/L (23-31); Chloride 95 mmol/L (98-107); Glucose 331 mg/dL (83-110); Potassium 5.3 mmol/L (3.5-5.1); Sodium 136 mmol/L (136-145)
[2020-11-21 06:31] LABS: #Lymphocytes 0.8 thou/uL (1.20-3.40); #Monocytes 0.3 thou/uL (0.11-0.59); #Neutrophils 4.5 thou/uL (1.40-6.50); %Basophils 0.6 % (0.0-1.0); %Eosinophils 0.8 % (0.0-10.0); %Lymphocytes 14.3 % (21.0-51.0); %Monocytes 5.6 % (0.0-10.0); %Neutrophils 78.7 % (42.0-75.0); Anisocytosis SLIGHT = 6-15 cells (100X) (0-5/hpf); Hemoglobin 8.1 g/dL (14.0-18.0); Hypochromia MODERATE=16-30 cells (100X) (0-5/hpf); MDiff Complete? YES; Mean Corpuscular HGB CONC 28.7 g/dL (32.0-36.0); Mean Corpuscular Hemoglobin 22.4 pg (27.0-31.0); Mean Platelet Volume 9.6 fL (7.4-10.4); Platelet Count 78 thou/uL (130-400); Platelet Morphology Comment Appears Decreased; Poikilocytosis SLIGHT = 6-15 cells (100X) (0-5/hpf); RBC Distribution Width 21.1 % (11.5-14.5); Red Blood Cell (RBC) Count 3.63 mill/uL (4.70-6.10); White Blood Cell (WBC) Count 5.7 thou/uL (4.8-10.8)
[2020-11-21] MEDS ORDERED: HumaLOG 300 UNITS/3 ML VIAL SC PRN (08:13)
[2020-11-21] MEDS: Clotrimazole 1% Cream 15 GM TUBE TOP SCH ×2 (08:50→21:18)
[2020-11-21] MEDS: Polyethylene Glycol 3350 17 GM Packet PO SCH (08:51)
[2020-11-21] MEDS: Furosemide 40 MG TAB PO SCH ×2 (08:51→14:32)
[2020-11-21] MEDS: Carvedilol 6.25 MG TAB PO SCH ×2 (08:51→21:18)
[2020-11-21] MEDS: Sotalol HCl 80 MG TAB PO SCH ×2 (08:51→21:19)
[2020-11-21] MEDS: HumaLOG 300 UNITS/3 ML VIAL SC PRN ×2 (09:21→16:53)
[2020-11-22] MEDS: Levothyroxine Sodium 25 MCG TAB PO SCH (05:35)
[2020-11-22] MEDS: HumaLOG 300 UNITS/3 ML VIAL SC PRN ×3 (08:23→17:13)
[2020-11-22] MEDS: Sotalol HCl 80 MG TAB PO SCH ×2 (08:47→20:43)
[2020-11-22] MEDS: Furosemide 40 MG TAB PO SCH ×2 (08:48→14:15)
[2020-11-22] MEDS: Clotrimazole 1% Cream 15 GM TUBE TOP SCH ×2 (08:48→20:45)
[2020-11-22] MEDS: Carvedilol 6.25 MG TAB PO SCH ×2 (08:48→20:43)
[2020-11-22] MEDS: Polyethylene Glycol 3350 17 GM Packet PO SCH (08:49)
[2020-11-23] MEDS: Levothyroxine Sodium 25 MCG TAB PO SCH (05:26)
[2020-11-23] MEDS: Furosemide 40 MG TAB PO SCH ×2 (08:37→14:51)
[2020-11-23] MEDS: Carvedilol 6.25 MG TAB PO SCH ×2 (08:37→21:44)
[2020-11-23] MEDS: Metolazone 5 MG TAB PO SCH (08:37)
[2020-11-23] MEDS: Sotalol HCl 80 MG TAB PO SCH ×2 (08:37→21:44)
[2020-11-23] MEDS: Polyethylene Glycol 3350 17 GM Packet PO SCH (08:38)
[2020-11-23] MEDS: Clotrimazole 1% Cream 15 GM TUBE TOP SCH ×2 (08:38→21:43)
[2020-11-23] MEDS: Lantus 1000 UNITS/10 ML VIAL SC SCH (08:39)
[2020-11-23] MEDS: HumaLOG 300 UNITS/3 ML VIAL SC PRN ×3 (08:40→17:04)
[2020-11-23] MEDS ORDERED: Insulin Glargine 5 UNITS in Pre-Filled Syringe 1 EACH SC SCH (09:00)
[2020-11-23] MEDS ORDERED: Morphine 10 MG/0.5 ML ORAL SYRINGE SL PRN (10:12)
[2020-11-24 06:17] LABS: Anion Gap 17 mmol/L (10-20); BUN (Urea Nitrogen) 93 mg/dL (8.4-25.7); Calc. Creatinine Clearance 36 mL/min (70-130); Calcium 8.9 mg/dL (7.8-10.44); Carbon Dioxide 33 mmol/L (23-31); Glucose 363 mg/dL (83-110)
[2020-11-24 06:24] LABS: Chloride 93 mmol/L (98-107); Sodium 140 mmol/L (136-145)
[2020-11-24] MEDS: Levothyroxine Sodium 25 MCG TAB PO SCH (06:34)
[2020-11-24] MEDS: Carvedilol 6.25 MG TAB PO SCH ×3 (08:26→21:17)
[2020-11-24] MEDS: Metolazone 5 MG TAB PO SCH (08:26)
[2020-11-24] MEDS: Furosemide 40 MG TAB PO SCH ×2 (08:26→14:28)
[2020-11-24] MEDS: Sotalol HCl 80 MG TAB PO SCH ×2 (08:26→21:17)
[2020-11-24] MEDS: Lantus 1000 UNITS/10 ML VIAL SC SCH (08:27)
[2020-11-24] MEDS: HumaLOG 300 UNITS/3 ML VIAL SC PRN ×3 (08:27→18:03)
[2020-11-24] MEDS: Polyethylene Glycol 3350 17 GM Packet PO SCH (08:28)
[2020-11-24] MEDS: Clotrimazole 1% Cream 15 GM TUBE TOP SCH ×2 (08:29→21:18)
[2020-11-25] MEDS: Levothyroxine Sodium 25 MCG TAB PO SCH (05:08)
[2020-11-25] MEDS: Polyethylene Glycol 3350 17 GM Packet PO SCH ×2 (09:21→14:17)
[2020-11-25] MEDS: Carvedilol 6.25 MG TAB PO SCH ×2 (09:23→21:14)
[2020-11-25] MEDS: Sotalol HCl 80 MG TAB PO SCH ×2 (09:23→21:13)
[2020-11-25] MEDS: Metolazone 5 MG TAB PO SCH (09:24)
[2020-11-25] MEDS: Furosemide 40 MG TAB PO SCH ×2 (09:24→14:17)
[2020-11-25] MEDS: Clotrimazole 1% Cream 15 GM TUBE TOP SCH ×2 (09:24→21:12)
[2020-11-25] MEDS: Lantus 1000 UNITS/10 ML VIAL SC SCH (09:25)
[2020-11-25] MEDS: Acetaminophen 325 MG TAB PO PRN (09:30)
[2020-11-25] MEDS: HumaLOG 300 UNITS/3 ML VIAL SC PRN ×3 (10:03→17:18)
[2020-11-26] MEDS: Levothyroxine Sodium 25 MCG TAB PO SCH (05:35)
[2020-11-26] MEDS: Sotalol HCl 80 MG TAB PO SCH ×2 (08:33→20:10)
[2020-11-26] MEDS: Carvedilol 6.25 MG TAB PO SCH ×2 (08:33→20:10)
[2020-11-26] MEDS: Polyethylene Glycol 3350 17 GM Packet PO SCH (08:33)
[2020-11-26] MEDS: Furosemide 40 MG TAB PO SCH ×2 (08:34→13:40)
[2020-11-26] MEDS: Metolazone 5 MG TAB PO SCH (08:34)
[2020-11-26] MEDS: Clotrimazole 1% Cream 15 GM TUBE TOP SCH ×2 (08:34→20:10)
[2020-11-26] MEDS: Lantus 1000 UNITS/10 ML VIAL SC SCH (08:35)
[2020-11-26] MEDS: HumaLOG 300 UNITS/3 ML VIAL SC PRN ×3 (08:36→17:07)
[2020-11-27] MEDS: Levothyroxine Sodium 25 MCG TAB PO SCH (05:23)
[2020-11-27 06:19] LABS: Anion Gap 18 mmol/L (10-20); BUN (Urea Nitrogen) 91 mg/dL (8.4-25.7); Calc. Creatinine Clearance 40 mL/min (70-130); Calcium 9.4 mg/dL (7.8-10.44); Glucose 277 mg/dL (83-110)
[2020-11-27 06:27] LABS: Carbon Dioxide 40 mmol/L (23-31); Chloride 85 mmol/L (98-107); Potassium 3.2 mmol/L (3.5-5.1); Sodium 141 mmol/L (136-145)
[2020-11-27] MEDS: Metolazone 5 MG TAB PO SCH (08:25)
[2020-11-27] MEDS: Polyethylene Glycol 3350 17 GM Packet PO SCH (08:25)
[2020-11-27] MEDS: HumaLOG 300 UNITS/3 ML VIAL SC PRN ×3 (08:25→17:41)
[2020-11-27] MEDS: Clotrimazole 1% Cream 15 GM TUBE TOP SCH ×2 (08:26→20:51)
[2020-11-27] MEDS: Furosemide 40 MG TAB PO SCH ×2 (08:26→14:10)
[2020-11-27] MEDS: Carvedilol 6.25 MG TAB PO SCH ×2 (08:26→20:51)
[2020-11-27] MEDS: Sotalol HCl 80 MG TAB PO SCH ×2 (08:26→20:55)
[2020-11-27] MEDS: Lantus 1000 UNITS/10 ML VIAL SC SCH (08:27)
[2020-11-28] MEDS: Levothyroxine Sodium 25 MCG TAB PO SCH (05:18)
[2020-11-28] MEDS: Sotalol HCl 80 MG TAB PO SCH ×2 (08:13→20:13)
[2020-11-28] MEDS: Metolazone 5 MG TAB PO SCH (08:13)
[2020-11-28] MEDS: Lantus 1000 UNITS/10 ML VIAL SC SCH (08:13)
[2020-11-28] MEDS: Furosemide 40 MG TAB PO SCH ×2 (08:13→14:00)
[2020-11-28] MEDS: Polyethylene Glycol 3350 17 GM Packet PO SCH (08:13)
[2020-11-28] MEDS: Carvedilol 6.25 MG TAB PO SCH ×2 (08:14→20:13)
[2020-11-28] MEDS: Clotrimazole 1% Cream 15 GM TUBE TOP SCH ×2 (08:14→20:13)
[2020-11-28] MEDS: HumaLOG 300 UNITS/3 ML VIAL SC PRN ×2 (12:10→17:09)
[2020-11-29] MEDS: Levothyroxine Sodium 25 MCG TAB PO SCH (05:43)
[2020-11-29] MEDS: Furosemide 40 MG TAB PO SCH ×2 (09:13→15:11)
[2020-11-29] MEDS: Metolazone 5 MG TAB PO SCH (09:13)
[2020-11-29] MEDS: Polyethylene Glycol 3350 17 GM Packet PO SCH (09:13)
[2020-11-29] MEDS: Sotalol HCl 80 MG TAB PO SCH ×2 (09:14→20:38)
[2020-11-29] MEDS: Carvedilol 6.25 MG TAB PO SCH ×2 (09:14→20:38)
[2020-11-29] MEDS: Clotrimazole 1% Cream 15 GM TUBE TOP SCH ×2 (09:15→20:39)
[2020-11-29] MEDS: Lantus 1000 UNITS/10 ML VIAL SC SCH (09:15)
[2020-11-29] MEDS: HumaLOG 300 UNITS/3 ML VIAL SC PRN ×3 (09:16→17:05)
[2020-11-30] MEDS: Levothyroxine Sodium 25 MCG TAB PO SCH (05:27)
[2020-11-30] MEDS: Polyethylene Glycol 3350 17 GM Packet PO SCH (09:22)
[2020-11-30] MEDS: Acetaminophen 325 MG TAB PO PRN (09:22)
[2020-11-30] MEDS: Carvedilol 6.25 MG TAB PO SCH ×2 (09:22→20:14)
[2020-11-30] MEDS: Metolazone 5 MG TAB PO SCH (09:24)
[2020-11-30] MEDS: Sotalol HCl 80 MG TAB PO SCH ×2 (09:24→20:15)
[2020-11-30] MEDS: Furosemide 40 MG TAB PO SCH ×2 (09:25→14:47)
[2020-11-30] MEDS: Clotrimazole 1% Cream 15 GM TUBE TOP SCH ×2 (09:27→20:15)
[2020-11-30] MEDS: Lantus 1000 UNITS/10 ML VIAL SC SCH (09:27)
[2020-11-30] MEDS: HumaLOG 300 UNITS/3 ML VIAL SC PRN (17:29)
[2020-12-01] MEDS: Levothyroxine Sodium 25 MCG TAB PO SCH (05:16)
[2020-12-01 06:07] LABS: Anion Gap 18 mmol/L (10-20); BUN (Urea Nitrogen) 100 mg/dL (8.4-25.7); Calc. Creatinine Clearance 41 mL/min (70-130); Calcium 9.7 mg/dL (7.8-10.44); Glucose 285 mg/dL (83-110)
[2020-12-01 06:14] LABS: Carbon Dioxide 40 mmol/L (23-31); Chloride 81 mmol/L (98-107); Potassium 3.6 mmol/L (3.5-5.1); Sodium 139 mmol/L (136-145)
[2020-12-01] MEDS: Clotrimazole 1% Cream 15 GM TUBE TOP SCH ×2 (08:46→20:52)
[2020-12-01] MEDS: Carvedilol 6.25 MG TAB PO SCH ×2 (08:46→20:51)
[2020-12-01] MEDS: Polyethylene Glycol 3350 17 GM Packet PO SCH (08:47)
[2020-12-01] MEDS: Sotalol HCl 80 MG TAB PO SCH ×2 (08:47→20:51)
[2020-12-01] MEDS: Metolazone 5 MG TAB PO SCH (08:47)
[2020-12-01] MEDS: Furosemide 40 MG TAB PO SCH ×2 (08:47→13:54)
[2020-12-01] MEDS: HumaLOG 300 UNITS/3 ML VIAL SC PRN ×2 (08:48→17:17)
[2020-12-01] MEDS: Lantus 1000 UNITS/10 ML VIAL SC SCH ×2 (08:56→10:27)
[2020-12-01] MEDS: Acetaminophen 325 MG TAB PO PRN (13:54)
[2020-12-02] MEDS: Morphine 10 MG/0.5 ML ORAL SYRINGE SL PRN ×3 (01:21→03:18)
[2020-12-02] MEDS: Levothyroxine Sodium 25 MCG TAB PO SCH (05:25)
[2020-12-02] MEDS: Sotalol HCl 80 MG TAB PO SCH ×2 (08:52→23:16)
[2020-12-02] MEDS: Furosemide 40 MG TAB PO SCH ×2 (08:52→15:13)
[2020-12-02] MEDS: Carvedilol 6.25 MG TAB PO SCH ×2 (08:52→23:15)
[2020-12-02] MEDS: Polyethylene Glycol 3350 17 GM Packet PO SCH (08:53)
[2020-12-02] MEDS: Lantus 1000 UNITS/10 ML VIAL SC SCH (09:00)
[2020-12-02 11:19] VITALS: BMI 26.9
[2020-12-02] MEDS: Clotrimazole 1% Cream 15 GM TUBE TOP SCH ×2 (14:18→20:31)
[2020-12-03] MEDS: Levothyroxine Sodium 25 MCG TAB PO SCH (05:34)
[2020-12-03] MEDS: Acetaminophen 325 MG TAB PO PRN (05:34)
[2020-12-03] MEDS: Ondansetron ODT 4 MG TAB PO PRN (05:41)
[2020-12-03] MEDS: Morphine 10 MG/0.5 ML ORAL SYRINGE SL PRN ×2 (08:29→23:57)
[2020-12-03] MEDS: Polyethylene Glycol 3350 17 GM Packet PO SCH (08:38)
[2020-12-03] MEDS: Furosemide 40 MG TAB PO SCH ×2 (08:39→14:07)
[2020-12-03] MEDS: Carvedilol 6.25 MG TAB PO SCH ×2 (08:39→21:50)
[2020-12-03] MEDS: Clotrimazole 1% Cream 15 GM TUBE TOP SCH ×2 (08:40→21:50)
[2020-12-04] MEDS: Levothyroxine Sodium 25 MCG TAB PO SCH (05:36)
[2020-12-04] MEDS: Morphine 10 MG/0.5 ML ORAL SYRINGE SL PRN ×2 (05:36→07:47)
[2020-12-04] MEDS ORDERED: Lorazepam 1 MG TAB PO PRN (07:55)
[2020-12-04] MEDS: Carvedilol 6.25 MG TAB PO SCH (08:23)
[2020-12-04] MEDS: Furosemide 40 MG TAB PO SCH (08:24)
[2020-12-04] MEDS: Clotrimazole 1% Cream 15 GM TUBE TOP SCH (08:24)
[2020-12-04 10:10] VITALS: BP 74/48; TEMP 94.5
== END 2020-12-04 12:22 | disposition expired | DRG 177 ==
LOC: UNDOADMIN 18:54 → MADMS 18:54 → UNDODISIN 12-04 12:22
PROVIDERS: ADMIT Family Medicine; ATTEND Family Medicine
DX: U07.1 COVID-19 (principal); J12.82 Pneumonia due to coronavirus disease 2019; I50.23 Acute on chronic systolic (congestive) heart failure; N17.9 Acute kidney failure, unspecified; I13.0 Hypertensive heart and chronic kidney disease with heart failure and stage 1 through stage 4 chronic kidney disease, or unspecified chronic kidney disease; J91.8 Pleural effusion in other conditions classified elsewhere; I27.21 Secondary pulmonary arterial hypertension; I50.812 Chronic right heart failure; E11.649 Type 2 diabetes mellitus with hypoglycemia without coma; I50.82 Biventricular heart failure; D63.1 Anemia in chronic kidney disease; R62.7 Adult failure to thrive; Z51.5 Encounter for palliative care; I25.5 Ischemic cardiomyopathy; I25.10 Atherosclerotic heart disease of native coronary artery without angina pectoris; E78.5 Hyperlipidemia, unspecified; G89.29 Other chronic pain; I08.1 Rheumatic disorders of both mitral and tricuspid valves; N18.9 Chronic kidney disease, unspecified; E11.22 Type 2 diabetes mellitus with diabetic chronic kidney disease; M47.816 Spondylosis without myelopathy or radiculopathy, lumbar region; Z74.09 Other reduced mobility; E11.51 Type 2 diabetes mellitus with diabetic peripheral angiopathy without gangrene; Z66 Do not resuscitate; E87.5 Hyperkalemia; E87.6 Hypokalemia; F32.9 Major depressive disorder, single episode, unspecified; I95.9 Hypotension, unspecified; Z79.82 Long term (current) use of aspirin; Z95.810 Presence of automatic (implantable) cardiac defibrillator; Z87.891 Personal history of nicotine dependence; Z74.01 Bed confinement status; Z79.4 Long term (current) use of insulin; Z79.02 Long term (current) use of antithrombotics/antiplatelets; Z88.8 Allergy status to other drugs, medicaments and biological substances; Z95.1 Presence of aortocoronary bypass graft; Z95.5 Presence of coronary angioplasty implant and graft; I25.2 Old myocardial infarction; Z79.899 Other long term (current) drug therapy; Z79.2 Long term (current) use of antibiotics; Z86.73 Personal history of transient ischemic attack (TIA), and cerebral infarction without residual deficits
CPT/HCPCS: 36415; 36416; 71045; 80048; 80053; 81001; 82274; 83880; 85025; J1610; J1815; J1940; J2543; J3490; J7070; Q0162